=== PATIENT | female | born 1950 | race Caucasian/White ===

== ENCOUNTER 2017-01-17 22:56 | Inpatient (IN) ==
[2017-01-17] MEDS ORDERED: 0.9 % Sodium Chloride 1,000 ML IVC ONE (23:08)
--- NOTE | 2017-01-17 23:13 | Emergency Department Note ---
Disposition Clinical Impression: C. difficile diarrhea, Generalized abdominal cramping, Generalized weakness Disposition: Admitted As Inpatient Condition: Fair Time of Disposition: 01:08 Abdominal Pain HPI - General Chief Complaint: ED Abdominal Pain Stated Complaint: CP/ABD Pain Time Seen by Provider: 01/17/17 23:05 Source: patient, EMS Mode of arrival: EMS Limitations: no limitations Nursing Notes Reviewed: Yes Vital Signs Reviewed: Yes - History of Present Illness HPI Narrative: Patient is a 66-year-old female with past medical history of lung cancer, bone cancer, CVA. She receives chemo injections for lung cancer. She presents today due to C. difficile. Patient has been having diarrhea and generalized abdominal cramping for several days. She went to her primary care physician physician and had a stool sample sent. She was called today by Dr. Franco's office and was told that she had C. difficile and was called in a prescription medication. Patient states that she went to her pharmacy and that her insurance would not cover the medication, therefore she was not able to get it filled. She came to the ED today for admission because she cannot afford the medication and feels weak, has had multiple stools daily, lives by self and feels that she cannot continue performing activities of daily living until she is well again. Denies any shortness of breath, fevers, urinary symptoms. She does admit to some chest pain but states that she feels that it is abdominal pain radiating up into her chest. Pain Scale: 6 - Related Data Home Medications Medication Instructions Recorded Confirmed Multivitamin/Ferrous Sulfate 18 mg PO DAILY #0 09/21/15 01/18/17 [One-Daily Mbylz-Cei-Znoq Tab] Aspirin [Adult Low Dose Aspirin EC] 81 mg PO DAILY 10/10/15 01/18/17 Carvedilol [Coreg] 25 mg PO DAILY 10/10/15 01/18/17 Sertraline [Zoloft] 150 mg PO DAILY 10/10/15 01/18/17 Trazodone HCl [TraZODone] 100 mg PO HS 10/10/15 01/18/17 Ranitidine HCl [Zantac] 150 mg PO BID 01/19/16 01/18/17 Albuterol Sulfate [Albuterol 2 puff IH Q4H PRN 04/30/16 01/18/17 Inhaler] Ciprofloxacin 250 01/18/17 Previous Rx's Medication Instructions Recorded Albuterol Sulfate [Proventil Hfa] 6.7 gm IH Q4HR PRN 30 Days 05/01/16 Calcium Carbonate/Vitamin D3 2 tab PO BID #60 tablet 11/09/16 [Calcium 600 + Vit D Tablet] Incontinence Pad,Liner,Disp [Poise 1 each MC PRN PRN #100 each 11/09/16 Liners] Incontinence Pants, Reusable [Mesh 1 each MC PRN PRN #100 each 11/09/16 Pants] Allergies Allergy/AdvReac Type Severity Reaction Status Date / Time iodine Allergy Unknown Difficulty Verified 01/17/17 23:09 Breathing Iodinated Contrast Media - Allergy Difficulty Verified 01/17/17 23:09 Oral and Breathing [Iodinated Contrast Media - IV Dye] Opioids - Morphine Analogues AdvReac Unknown Itching Verified 01/17/17 23:09 watermelon Allergy Unknown Itching Uncoded 04/26/16 12:51 All systems ED: reviewed and negative except as stated. Constitutional: Denies: fever Cardiovascular: Reports: chest pain. Denies: palpitations Respiratory: Denies: cough, dyspnea, wheezes Gastrointestinal: Reports: abdominal pain, diarrhea. Denies: nausea, vomiting Genitourinary: Denies: urgency, dysuria, frequency, hematuria Musculoskeletal: Denies: back pain Integumentary: Denies: rash Neurological: Denies: headache, weakness, numbness, paresthesias Abdominal Pain PMH - Past Medical History Medical history: Reports: cancer, CVA, seizures, TIA Female Surgical History: Reports: orthopedic, other Psychiatric history: Reports: anxiety, depression - Social History Smoking status: Former smoker Alcohol use: Reports: none Drug use: Reports: none Physical Exam - General Limitations: no limitations General appearance: alert, in no apparent distress, other (frail, generalized weakness) - Head Head exam: atraumatic, normocephalic, normal inspection - Eye Eye exam: Present: normal appearance, PERRL, EOMI - ENT ENT exam: normal exam, normal oropharynx, mucous membranes moist - Neck Neck exam: Present: normal inspection, full ROM, trachea midline - Chest Chest inspection: Present: normal inspection, symmetric chest wall rise - Respiratory Respiratory exam: Present: normal lung sounds bilaterally - Cardiovascular Cardiovascular exam: Present: regular rate, normal rhythm, normal heart sounds - Abdominal Exam Abdominal exam: Present: soft, tenderness (generalized abdominal tenderness). Absent: distention, guarding, rebound, rigidity - Extremities Exam Extremities exam: Present: normal inspection, full ROM. Absent: tenderness, pedal edema - Neurological Exam Neurological exam: Present: alert, oriented X3, CN II-XII intact. Absent: motor sensory deficit - Psychiatric Psychiatric exam: Present: normal affect, normal mood - Skin Skin exam: Present: warm, dry, intact, normal color Course Course Narrative: Vitals within normal limits. Physical exam shows generalized abdominal tenderness. Patient is frail and generally weak. No focal neurologic deficits. We will obtain basic blood work, give the patient fluids. We will also obtain EKG however, I do feel that the patient's chest pain is radiating from her abdomen, as her "chest pain" is reproduced when I press in her epigastric region. We will likely admit due to social concerns and C. difficile. 00:33 EKG shows normal sinus rhythm with no acute ST changes. CBC shows leukocytosis of 12.2. Otherwise, BMP within normal limits. We will proceed with admission. Vital Signs Temperature 98.3 F 01/17/17 22:58 Pulse Rate 86 01/17/17 22:58 Respiratory Rate 18 01/17/17 22:58 Blood Pressure 120/63 01/17/17 22:58 O2 Sat by Pulse Oximetry 93 01/17/17 22:58 Temperature 99.8 F H 01/18/17 02:57 Pulse Rate 92 01/18/17 02:57 Respiratory Rate 17 01/18/17 02:57 Blood Pressure 136/80 01/18/17 02:57 O2 Sat by Pulse Oximetry 93 01/18/17 02:57 Oxygen Delivery Oxygen Delivery Room Air Abdominal Pain - [facility] Narrative Medical decision making narrative: Vitals within normal limits. Physical exam shows generalized abdominal tenderness. Patient is frail and generally weak. No focal neurologic deficits. We will obtain basic blood work, give the patient fluids. We will also obtain EKG however, I do feel that the patient's chest pain is radiating from her abdomen, as her "chest pain" is reproduced when I press in her epigastric region. We will likely admit due to social concerns and C. difficile. 00:33 EKG shows normal sinus rhythm with no acute ST changes. CBC shows leukocytosis of 12.2. Otherwise, BMP within normal limits. We will proceed with admission. - Medical Records Medical records reviewed: Yes I reviewed the patient's medical records. - Lab Data Lab results reviewed: Yes I reviewed the patient's lab results. Result diagrams: 01/17/17 23:22 01/17/17 23:22 Lab Results 01/17/17 01/17/17 01/18/17 Range/Units 23:22 23:22 03:50 WBC 12.2 H (4.3-11.1) K/mcL RBC 3.89 (3.82-4.97) M/mcL Hgb 11.2 L (11.5-15.4) g/dL Hct 34.1 L (35.3-44.9) % MCV 87.7 (83.0-100.0) fL MCH 28.8 (28.0-33.3) pg MCHC 32.8 (31.6-35.5) g/dL RDW 13.4 (11.5-14.5) % Plt Count 173 (140-400) K/mcL MPV 9.7 (9.4-12.4) fL Immature Gran % 0.7 (0-4) % Seg Neutrophils % 71.0 % Lymphocytes % 15.3 % Monocytes % 6.8 % Eosinophils % 5.9 % Basophils % 0.3 % Neutrophils # 8.7 (1.6-8.9) K/mcL Lymphocytes # 1.9 (0.6-4.6) K/mcL Monocytes # 0.8 (0.0-1.3) K/mcL Eosinophils # 0.7 H (0.0-0.6) K/mcL Basophils # 0.0 (0.0-0.2) K/mcL Sodium 143 (136-145) mEq/L Potassium 3.4 L (3.5-4.5) mEq/L Chloride 105 (98-109) mEq/L Carbon Dioxide 29 (19-29) mEq/L BUN 10 (7-20) mg/dL Creatinine 0.72 (0.57-1.11) mg/dL Est GFR ( Amer) > 60 (> 60) Est GFR (Non-Af Amer) > 60 (> 60) BUN/Creatinine Ratio 14 (6-26) Glucose 104 H (70-99) mg/dL Calculated Osmolality 295 (280-300) Calcium 8.7 (8.6-10.8) mg/dL Urine Color Yellow (Yellow) Urine Clarity Clear (Clear) Urine pH 6.5 (5.0-8.0) pH Units Ur Specific [place] 1.016 (1.010-1.025) Urine Protein Negative (Neg-Trace) mg/dL Urine Glucose (UA) Normal (Normal) mg/dL Urine Ketones Negative (Negative) mg/dL Urine Blood Negative (Negative) Urine Nitrite Negative (Negative) Urine Bilirubin Negative (Negative) Urine Urobilinogen Normal (Normal) mg/dL Ur Leukocyte Esterase Negative (Negative) Ur Culture Indicated? NO (NO) - EKG Data EKG attestation: Yes I reviewed and interpreted this EKG. EKG results narrative: 01/17/2017 at 23:09. Normal sinus rhythm. Rate 84. NH 162. QRS 98. QTC 438. Normal axis. No acute ST elevation or depression. No previous changes compared to previous EKG on 04/26/2016 S.B.ACastro - S.Russell Situation: Demographics, MOA Background: Presenting Complaint, Relevant PMH, Meds, & Allergies Assessment: Vital Signs, Course and respsone to treatment, Exam Concerns, Patient/Family Expectation, Pertinant Lab Results, Outstanding Labs Recommendation: Barrier(s) to disposition, Recommendation based on pending studies, treatments, or consults S.B.A.RAilyn Report Given to: Dr. Hayley Ordoñez Repor Time: 01:08 Attestation Statement - Attestation Attestation: Dr. Herrera note: Patient was seen in conjunction with resident Dr. Aubrey Ortiz; please see his chart for complete documentation. I spent [id number] time with the patient and agree with the patient's treatment and disposition. Chemistry results reviewed. Vital signs stable. Multiple bouts of diarrhea in the ER which required a rectal tube. Patient is unable to care for herself and will need to be admitted for intractable diarrhea
[2017-01-17 23:29] LABS: Basophils % 0.3 %; Eosinophils # 0.7 K/mcL (0.0-0.6); Eosinophils % 5.9 %; Hematocrit 34.1 % (35.3-44.9); Hemoglobin 11.2 g/dL (11.5-15.4); Immature Granulocytes % 0.7 % (0-4); Lymphocytes # 1.9 K/mcL (0.6-4.6); Lymphocytes % 15.3 %; Mean Corpuscular HGB Conc 32.8 g/dL (31.6-35.5); Mean Corpuscular Hemoglobin 28.8 pg (28.0-33.3); Mean Corpuscular Volume 87.7 fL (83.0-100.0); Mean Platelet Volume 9.7 fL (9.4-12.4); Monocytes # 0.8 K/mcL (0.0-1.3); Monocytes % 6.8 %; Neutrophils # 8.7 K/mcL (1.6-8.9); Platelet Count 173 K/mcL (140-400); Red Blood Count 3.89 M/mcL (3.82-4.97); Red Cell Distribution Width 13.4 % (11.5-14.5)
[2017-01-17 23:41] LABS: BUN/Creatinine Ratio 14 (6-26); Blood Urea Nitrogen 10 mg/dL (7-20); Calcium 8.7 mg/dL (8.6-10.8); Carbon Dioxide 29 mEq/L (19-29); Chloride 105 mEq/L (98-109); Glucose 104 mg/dL (70-99); Osmolality,Calculated 295 (280-300); Potassium 3.4 mEq/L (3.5-4.5); Sodium 143 mEq/L (136-145); eGFR For African Americans > 60 (> 60); eGFR For Non-African Americans > 60 (> 60)
[2017-01-18] MEDS ORDERED: Vancomycin Oral Soln 250 MG/2.5 ML UDC PO ONE (01:15)
--- NOTE | 2017-01-18 03:19 | Internal Med History&Physical ---
<Tre Curiel - Last Filed: 01/18/17 03:53> Date of Encounter: 01/18/17 Time of Encounter: 03:19 Assessment and Plan (1) C. difficile diarrhea Current visit: Yes Status: Acute -per patient "my (Brina) PCP states that I have cdiff" positive on stool sample -Complains of abdominal pain. Has taken morphine before without adverse reaction. Prescribed APPA-codeine 30-300 according to [facility]. This med is not on home list....no longer taking? Plan -Start oral vanc -isolation precautions. Stool sample taken to test for cdiff Regular diet (2) Carcinoma of breast metastatic to bone Current visit: Yes Status: Chronic -Dr. Cardoso cancer patient -Will call and notify Qualifiers: Laterality: left Qualified Code(s): C50.912 - Malignant neoplasm of unspecified site of left female breast; C79.51 - Secondary malignant neoplasm of bone (3) DVT prophylaxis Current visit: Yes Status: Acute lovenox sq Internal Medicine - H&P: HPI Chief complaint: abdominal pain/cdiff Admitted From: Emergency Dept Plans for Post Hospital Care: Home History of present illness: Ms. Lemons is a 66 year old female, PMH Primary breast cancer with mets to bone and lung, admitted for cdiff. Patient states that PCP, Dr. Quigley, called and told patient she was positive for cdiff. Patient unable to fill oral vanc rx at pharmacy due insurance not covering the cost so she presented to the ED to be treated. Currently, patient complains of abdominal pain, colicky for the last 2 weeks. Diarrhea anytime she drinks or eats. No blood or melena. She currently takes chemotherapy, has been for the last 6 years, and ciprofloxacin for UTI. Currently has dysuria. unsure when she started cipro. She has never had cdiff before. Admits to N. Denies F/V/C/new parasthesias. She is able to eat and drink. Past Med Surg Social Fam HX - Past Medical History Medical history: cancer, CVA, seizures, TIA Psychiatric history: anxiety, depression - Past Surgical History Surgical History: breast surgery, cancer surgery, other - Social History Smoking Status: Former smoker Smokeless Tobacco Status: No Alcohol use: none Drug use: none - Family History Mother Living Status: Internal Medicine - H&P: Meds Multivitamin/Ferrous Sulfate [One-Daily Uvlgu-Meb-Lhnb Tab] 18 mg PO DAILY #0 09/21/15 [History] Aspirin [Adult Low Dose Aspirin EC] 81 mg PO DAILY 10/10/15 [History] Carvedilol [Coreg] 25 mg PO DAILY 10/10/15 [History] Sertraline [Zoloft] 150 mg PO DAILY 10/10/15 [History] Trazodone HCl [TraZODone] 100 mg PO HS 10/10/15 [History] Ranitidine HCl [Zantac] 150 mg PO BID 01/19/16 [History] Albuterol Sulfate [Albuterol Inhaler] 2 puff IH Q4H PRN 04/30/16 [History] Albuterol Sulfate [Proventil Hfa] 6.7 gm IH Q4HR PRN 30 Days 05/01/16 [Rx] Calcium Carbonate/Vitamin D3 [Calcium 600 + Vit D Tablet] 2 tab PO BID #60 tablet 11/09/16 [Rx] Incontinence Pad,Liner,Disp [Poise Liners] 1 each MC PRN PRN #100 each 11/09/16 [Rx] Incontinence Pants, Reusable [Mesh Pants] 1 each MC PRN PRN #100 each 11/09/16 [ Rx] Ciprofloxacin 250 01/18/17 [History] Allergies iodine Allergy (Unknown, Verified 01/17/17 23:09) Difficulty Breathing Iodinated Contrast Media - Oral and [Iodinated Contrast Media - IV Dye] Allergy (Verified 01/17/17 23:09) Difficulty Breathing Opioids - Morphine Analogues Adverse Reaction (Unknown, Verified 01/17/17 23:09) Itching nausea watermelon Allergy (Unknown, Uncoded 04/26/16 12:51) Itching All Systems PM: A 10-system review of systems was performed and is negative for pertinent findings except as documented above in the HPI. - Constitutional Constitutional: no chills, no fever(s), no night sweats - Cardiovascular Cardiovascular ROS IM: no chest pain, no diaphoresis, no dyspnea, no lightheadedness, no palpitations, no syncope - Respiratory Respiratory: no cough, no dyspnea, no wheezing, no excessive phlegm production - Gastrointestinal Gastrointestinal: as per HPI - Constitutional Vitals: Temp Pulse Resp BP Pulse Ox 99.8 F H 92 17 136/80 93 01/18/17 02:57 01/18/17 02:57 01/18/17 02:57 01/18/17 02:57 01/18/17 02:57 General appearance: Present: A&O X 3 - Head Head exam: Present: atraumatic, normocephalic - Neck Neck exam general surgery: Present: supple, trachea midline. Absent: lymphadenopathy - Respiratory Respiratory exam: Present: CTAB. Absent: accessory muscle use, rales, rhonchi, wheezes - Cardiovascular Cardiovascular exam: Present: RRR, +S1, +S2. Absent: diastolic murmur, gallop, rubs, systolic murmur - GI/Abdominal GI/Abdominal exam: Present: hyperactive bowel sounds, soft, tenderness, no peritoneal signs. Absent: guarding, mass - Neurological Exam Neurological exam: Present: alert, oriented X3 - Psychiatric Psychiatric exam: Present: anxious Internal Med - H&P Results - Labs CBC & Chem 7: 01/17/17 23:22 01/17/17 23:22 <Chloe Hardy - Last Filed: 01/18/17 07:23> Date of Encounter: 01/18/17 Internal Medicine - H&P: HPI History of present illness: Ms. Lemons is a 66 year old female All Systems PM: A 10-system review of systems was performed and is negative for pertinent findings except as documented above in the HPI. - Constitutional Vitals: Temp Pulse Resp BP Pulse Ox 99.8 F H 92 17 136/80 93 01/18/17 02:57 01/18/17 02:57 01/18/17 02:57 01/18/17 02:57 01/18/17 02:57 Internal Med - H&P Results - Labs CBC & Chem 7: 01/17/17 23:22 01/17/17 23:22 - Attending Attestation I performed history and physical examination of the patient and discussed management with resident/Space Systems Operations Superintendent. I reviewed the resident/ Interns note and agree with the documented findings and plan of care. 66 Y/F with h/o breast cancer with mets to bone and lung, she is on long-term ciprofloxacin for UTIs. She reports 10 day history of multiple episodes of diarrhea and lower abdominal pain. She reports more than 20 diarrheal episodes / day. Denies melena or hematochezia. She apparently was tested positive for C. difficile, checked by her PCP, Patient was unable to fill oral vanc rx at pharmacy due insurance not covering the cost. O/E: Mild lower abdominal tenderness present. Rectal tube present Labs reviewed A/P: Clostridium difficile diarrhea: Possibly due to ciprofloxacin. Ciprofloxacin. Started on oral vancomycin and probiotics. If not improving symptomatically, consistent GI consultation.
[2017-01-18] MEDS ORDERED: Naloxone 0.4 MG/ML INJ IVP PRN (03:26)
[2017-01-18] MEDS ORDERED: Ondansetron 4 MG/2 ML VIAL IVP PRN (03:26)
[2017-01-18] MEDS ORDERED: Ondansetron ODT 4 MG TAB.RAPDIS SL PRN (03:26)
[2017-01-18] MEDS ORDERED: [UNRECOGNIZED DRUG - SUPPLY] MC PRN (03:33)
[2017-01-18] MEDS ORDERED: [UNRECOGNIZED DRUG - SUPPLY] MC PRN (03:33)
[2017-01-18] MEDS: traZODone 50 MG TABLET PO SCH ×2 (03:54→20:24)
[2017-01-18 04:04] LABS: Bilirubin,Urine Negative (Negative); Blood,Urine Negative (Negative); Clarity,Urine Clear (Clear); Color,Urine Yellow (Yellow); Glucose,Urine (UA) Normal (Normal); Ketones,Urine Negative (Negative); Leukocyte Esterase,Urine Negative (Negative); Nitrite,Urine Negative (Negative); PH,Urine 6.5 pH Units (5.0-8.0); Protein,Urine Negative (Neg-Trace); Specific Gravity,Urine 1.016 (1.010-1.025); Urobilinogen,Urine Normal (Normal)
[2017-01-18] MEDS: *HR* Morphine 2 MG/ML SYRINGE IVP PRN (04:10)
[2017-01-18] MEDS ORDERED: Potassium Chloride Elixir 20 MEQ/15 ML UDC PO SCH (09:00)
[2017-01-18] MEDS ORDERED: CALCIUM/VITAMIN D PO SCH (09:00)
[2017-01-18] MEDS: Lactobacillus 1 EACH CAP.SPRINK PO SCH ×2 (09:32→20:24)
[2017-01-18] MEDS: Aspirin Enteric Coated 81 MG Tablet PO SCH (09:33)
[2017-01-18] MEDS: Multivit/Ca/Min/Fe/FA 1 TAB TABLET PO SCH (09:33)
[2017-01-18] MEDS: Famotidine 20 MG TABLET PO SCH ×2 (09:33→18:32)
[2017-01-18] MEDS: Vancomycin Oral Soln 250 MG/2.5 ML UDC PO SCH ×4 (09:33→20:24)
[2017-01-18] MEDS: 0.9 % Sodium Chloride 1,000 ML IVC SCH (09:33)
[2017-01-18] MEDS: *HR* Enoxaparin 40 MG/0.4 ML SYRINGE SQ SCH (09:34)
[2017-01-18] MEDS: *HR* HYDROcodone/Acet 10/325 mg TABLET PO PRN (09:55)
--- NOTE | 2017-01-18 17:21 | Electrocardiograph Report ---
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
[2017-01-19] MEDS: 0.9 % Sodium Chloride 1,000 ML IVC SCH (00:37)
[2017-01-19] MEDS: *HR* Morphine 2 MG/ML SYRINGE IVP PRN ×3 (05:08→19:51)
[2017-01-19 05:27] LABS: Basophils % 0.4 %; Eosinophils # 0.5 K/mcL (0.0-0.6); Eosinophils % 5.9 %; Hematocrit 30.9 % (35.3-44.9); Hemoglobin 10.1 g/dL (11.5-15.4); Immature Granulocytes % 0.5 % (0-4); Lymphocytes # 1.8 K/mcL (0.6-4.6); Lymphocytes % 22.1 %; Mean Corpuscular HGB Conc 32.7 g/dL (31.6-35.5); Mean Corpuscular Hemoglobin 28.5 pg (28.0-33.3); Mean Corpuscular Volume 87.3 fL (83.0-100.0); Mean Platelet Volume 9.7 fL (9.4-12.4); Monocytes # 0.6 K/mcL (0.0-1.3); Monocytes % 7.2 %; Neutrophils # 5.3 K/mcL (1.6-8.9); Platelet Count 155 K/mcL (140-400); Red Blood Count 3.54 M/mcL (3.82-4.97); Red Cell Distribution Width 13.2 % (11.5-14.5); Segmented Neutrophils % 63.9 %
[2017-01-19 05:33] LABS: BUN/Creatinine Ratio 9 (6-26); Carbon Dioxide 27 mEq/L (19-29); Chloride 112 mEq/L (98-109); Glucose 94 mg/dL (70-99); Magnesium 1.6 mg/dL (1.6-2.6); Osmolality,Calculated 299 (280-300); Phosphorous 2.4 mg/dL (2.3-4.7); Potassium 2.9 mEq/L (3.5-4.5); Sodium 146 mEq/L (136-145); eGFR For African Americans > 60 (> 60); eGFR For Non-African Americans > 60 (> 60)
[2017-01-19 05:38] LABS: Blood Urea Nitrogen 5 mg/dL (7-20)
[2017-01-19] MEDS: *HR* Enoxaparin 40 MG/0.4 ML SYRINGE SQ SCH (05:57)
[2017-01-19] MEDS ORDERED: Potassium Chloride 40 MEQ, Lidocaine 1% 2 ML in D5% in Water 500 ML IVPB STA (07:56)
[2017-01-19] MEDS: Multivit/Ca/Min/Fe/FA 1 TAB TABLET PO SCH (09:18)
[2017-01-19] MEDS: Lactobacillus 1 EACH CAP.SPRINK PO SCH ×2 (09:18→19:59)
[2017-01-19] MEDS: Famotidine 20 MG TABLET PO SCH ×2 (09:19→15:44)
[2017-01-19] MEDS: Aspirin Enteric Coated 81 MG Tablet PO SCH (09:19)
[2017-01-19] MEDS: Vancomycin Oral Soln 250 MG/2.5 ML UDC PO SCH ×4 (09:20→20:00)
[2017-01-19] MEDS: *HR* HYDROcodone/Acet 10/325 mg TABLET PO PRN ×2 (09:27→16:45)
--- NOTE | 2017-01-19 14:32 | Internal Med Progress Note ---
Date of Encounter: 01/19/17 Time of Encounter: 13:00 - Assessment and plan (1) C. difficile diarrhea Current Visit: Yes Status: Acute Assessment and plan: For the past 2 weeks, she has severe diarrhea and lower abdominal pain. Her primary care physician checked her for C diff and it came back positive so she was prescribed oral vancomycin as outpatient. Unfortunately, she was unable to afford this medication and she came to our emergency department. Patient met criteria for severe disease given age, fever and immunosuppression due to metastatic breast cancer receiving Faslodex therapy. She has received oral vancomycin 250 mg qid for the past 36 hours with no improvement of her diarrhea. She reports at least 8 loose bm this morning. Will increase vancomycin to 500 mg qid. close monitoring. electrolyte replacement. close monitoring. (2) Hypokalemia Current Visit: Yes Status: Acute Assessment and plan: replete (3) Metastatic breast carcinoma Current Visit: No Status: Chronic Assessment and plan: Metastatic breast carcinoma to bones and lungs. Currently she is being treated with Faslodex. Outpatient follow-up. 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 Brain MRI 03/24/15 to evaluate ataxia and recurrent falls showed no evidence of intracranial metastases. (5) Hypomagnesemia Current Visit: Yes Status: Acute Assessment and plan: replete - Subjective Interval history: Patient reports over 8 bowel movements this morning, all loose. She feels her bowels are very active. - Constitutional Vitals: Temp Pulse Resp BP Pulse Ox 98.5 F 69 19 101/65 94 01/19/17 11:12 01/19/17 11:12 01/19/17 11:12 01/19/17 11:12 01/19/17 11:12 General appearance: Present: cooperative, A&O X 3, pleasant, no acute distress, answers questions appropriately - Respiratory Respiratory exam: Present: CTAB - Cardiovascular Cardiovascular exam: Present: RRR - GI/Abdominal GI/Abdominal exam: Present: hyperactive bowel sounds, soft. Absent: distended, tenderness - Extremities Exam Extremities exam: Absent: pedal edema - Back Exam Back exam: Absent: CVA tenderness (L), CVA tenderness (R) - Neurological Exam Neurological exam: Present: alert, oriented X3, no focal deficits, strengths equal and symetr throughout. Absent: facial droop, speech deficit Internal Medicine: Result - Labs CBC & Chem 7: 01/19/17 05:08 01/19/17 05:08 Labs: Short CBC 01/19/17 Range/Units 05:08 WBC 8.2 (4.3-11.1) K/mcL Hgb 10.1 L (11.5-15.4) g/dL Hct 30.9 L (35.3-44.9) % Plt Count 155 (140-400) K/mcL Neutrophils # 5.3 (1.6-8.9) K/mcL BMP 01/19/17 05:08 Sodium 146 H Potassium 2.9 L Chloride 112 H Carbon Dioxide 27 BUN 5 L Creatinine 0.58 Glucose 94 Calcium 8.0 L Consult Discharge Plan - Plan Referrals: Mohini Franco, [employer] [Primary Care Provider] -
[2017-01-19] MEDS: traZODone 50 MG TABLET PO SCH (20:00)
[2017-01-20] MEDS: *HR* Morphine 2 MG/ML SYRINGE IVP PRN ×4 (03:13→22:22)
[2017-01-20 04:20] LABS: Basophils % 0.5 %; Eosinophils # 0.6 K/mcL (0.0-0.6); Eosinophils % 8.9 %; Hematocrit 33.6 % (35.3-44.9); Hemoglobin 10.6 g/dL (11.5-15.4); Immature Granulocytes % 0.8 % (0-4); Lymphocytes # 2.1 K/mcL (0.6-4.6); Lymphocytes % 31.8 %; Mean Corpuscular HGB Conc 31.5 g/dL (31.6-35.5); Mean Corpuscular Hemoglobin 28.1 pg (28.0-33.3); Mean Corpuscular Volume 89.1 fL (83.0-100.0); Mean Platelet Volume 10.2 fL (9.4-12.4); Monocytes # 0.5 K/mcL (0.0-1.3); Monocytes % 8.1 %; Neutrophils # 3.3 K/mcL (1.6-8.9); Platelet Count 184 K/mcL (140-400); Red Blood Count 3.77 M/mcL (3.82-4.97); Red Cell Distribution Width 13.7 % (11.5-14.5); Segmented Neutrophils % 49.9 %
[2017-01-20 04:31] LABS: Albumin 2.6 g/dL (3.5-5.0); Albumin/Globulin Ratio 0.8 (1.1-2.2); BUN/Creatinine Ratio 7 (6-26); Bilirubin,Direct 0.1 mg/dL (0.0-0.5); Bilirubin,Indirect 0.1 mg/dL (0.0-1.2); Bilirubin,Total 0.2 mg/dL (0.2-1.2); Calcium 8.2 mg/dL (8.6-10.8); Carbon Dioxide 25 mEq/L (19-29); Chloride 111 mEq/L (98-109); Globulin 3.3 g/dL (2.4-3.5); Glucose 87 mg/dL (70-99); Magnesium 1.7 mg/dL (1.6-2.6); Osmolality,Calculated 293 (280-300); Phosphorous 2.7 mg/dL (2.3-4.7); Potassium 3.6 mEq/L (3.5-4.5); Sodium 143 mEq/L (136-145); Total Protein 5.9 g/dL (6.0-8.3); eGFR For African Americans > 60 (> 60); eGFR For Non-African Americans > 60 (> 60)
[2017-01-20 04:32] LABS: Blood Urea Nitrogen 5 mg/dL (7-20)
[2017-01-20] MEDS: *HR* Enoxaparin 40 MG/0.4 ML SYRINGE SQ SCH (06:38)
[2017-01-20] MEDS: Famotidine 20 MG TABLET PO SCH ×2 (06:38→16:40)
[2017-01-20] MEDS: Vancomycin Oral Soln 250 MG/2.5 ML UDC PO SCH ×4 (08:02→22:21)
[2017-01-20] MEDS: Lactobacillus 1 EACH CAP.SPRINK PO SCH ×2 (08:03→22:21)
[2017-01-20] MEDS: Aspirin Enteric Coated 81 MG Tablet PO SCH (08:04)
[2017-01-20] MEDS: Multivit/Ca/Min/Fe/FA 1 TAB TABLET PO SCH (08:04)
[2017-01-20] MEDS: *HR* HYDROcodone/Acet 10/325 mg TABLET PO PRN ×2 (08:13→16:40)
--- NOTE | 2017-01-20 16:42 | Internal Med Progress Note ---
Date of Encounter: 01/20/17 Time of Encounter: 14:00 - Assessment and plan (1) C. difficile diarrhea Current Visit: Yes Status: Acute Assessment and plan: For the past 2 weeks, she has severe diarrhea and lower abdominal pain. Her primary care physician checked her for C diff and it came back positive so she was prescribed oral vancomycin as outpatient. Unfortunately, she was unable to afford this medication and she came to our emergency department. Patient met criteria for severe disease given age, fever and immunosuppression due to metastatic breast cancer receiving Faslodex therapy. 01/19 oral vancomycin increased to 500 mg qid due to high frequency of loose stools 01/20 slowly improving. stools are becoming formed but still 7-8 per day. close monitoring. electrolyte replacement. (2) Hypokalemia Current Visit: Yes Status: Acute Assessment and plan: corrected (3) Metastatic breast carcinoma Current Visit: No Status: Chronic Assessment and plan: Metastatic breast carcinoma to bones and lungs. Currently she is being treated with Faslodex. Outpatient follow-up. 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 Brain MRI 03/24/15 to evaluate ataxia and recurrent falls showed no evidence of intracranial metastases. (5) Hypomagnesemia Current Visit: Yes Status: Resolved Assessment and plan: corrected - Subjective Interval history: Patient reports bowel movements are formed. she is eating well. no nausea. no vomiting. - Constitutional Vitals: Temp Pulse Resp BP Pulse Ox 97.9 F 57 18 107/71 99 01/20/17 11:04 01/20/17 11:04 01/20/17 11:04 01/20/17 11:04 01/20/17 11:04 General appearance: Present: cooperative, A&O X 3, pleasant, no acute distress, answers questions appropriately - Respiratory Respiratory exam: Present: CTAB - Cardiovascular Cardiovascular exam: Present: RRR - GI/Abdominal GI/Abdominal exam: Present: hyperactive bowel sounds, soft. Absent: distended, tenderness - Extremities Exam Extremities exam: Absent: pedal edema - Back Exam Back exam: Absent: CVA tenderness (L), CVA tenderness (R) - Neurological Exam Neurological exam: Present: alert, oriented X3, no focal deficits, strengths equal and symetr throughout. Absent: facial droop, speech deficit Internal Medicine: Result - Labs CBC & Chem 7: 04/23/17 03:25 01/20/17 03:25 Labs: Short CBC 01/20/17 Range/Units 03:25 WBC 6.5 (4.3-11.1) K/mcL Hgb 10.6 L (11.5-15.4) g/dL Hct 33.6 L (35.3-44.9) % Plt Count 184 (140-400) K/mcL Neutrophils # 3.3 (1.6-8.9) K/mcL BMP 01/20/17 03:25 Sodium 143 Potassium 3.6 Chloride 111 H Carbon Dioxide 25 BUN 5 L Creatinine 0.69 Glucose 87 Calcium 8.2 L Liver Function 01/20/17 Range/Units 03:25 Total Bilirubin 0.2 (0.2-1.2) mg/dL Direct Bilirubin 0.1 (0.0-0.5) mg/dL AST 14 (5-34) Units/L ALT 10 (0-55) Units/L Alkaline Phosphatase 59 (38-126) Units/L Albumin 2.6 L (3.5-5.0) g/dL Consult Discharge Plan - Plan Referrals: Mohini Franco, [employer] [Primary Care Provider] -
[2017-01-20] MEDS: traZODone 50 MG TABLET PO SCH (22:20)
[2017-01-21] MEDS: *HR* Morphine 2 MG/ML SYRINGE IVP PRN ×3 (03:36→22:25)
[2017-01-21 05:34] LABS: BUN/Creatinine Ratio 9 (6-26); Basophils % 0.5 %; Blood Urea Nitrogen 6 mg/dL (7-20); Calcium 7.9 mg/dL (8.6-10.8); Carbon Dioxide 28 mEq/L (19-29); Chloride 110 mEq/L (98-109); Eosinophils # 0.5 K/mcL (0.0-0.6); Eosinophils % 7.6 %; Glucose 84 mg/dL (70-99); Hematocrit 30.5 % (35.3-44.9); Hemoglobin 9.8 g/dL (11.5-15.4); Immature Granulocytes % 0.6 % (0-4); Lymphocytes # 1.8 K/mcL (0.6-4.6); Lymphocytes % 29.8 %; Magnesium 1.4 mg/dL (1.6-2.6); Mean Corpuscular HGB Conc 32.1 g/dL (31.6-35.5); Mean Corpuscular Hemoglobin 29.1 pg (28.0-33.3); Mean Corpuscular Volume 90.5 fL (83.0-100.0); Mean Platelet Volume 10.7 fL (9.4-12.4); Monocytes # 0.5 K/mcL (0.0-1.3); Monocytes % 8.3 %; Neutrophils # 3.3 K/mcL (1.6-8.9); Osmolality,Calculated 293 (280-300); Platelet Count 163 K/mcL (140-400); Potassium 3.7 mEq/L (3.5-4.5); Red Blood Count 3.37 M/mcL (3.82-4.97); Red Cell Distribution Width 13.5 % (11.5-14.5); Segmented Neutrophils % 53.2 %; Sodium 143 mEq/L (136-145); eGFR For African Americans > 60 (> 60); eGFR For Non-African Americans > 60 (> 60)
[2017-01-21] MEDS: *HR* Enoxaparin 40 MG/0.4 ML SYRINGE SQ SCH (06:20)
[2017-01-21] MEDS: *HR* HYDROcodone/Acet 10/325 mg TABLET PO PRN ×2 (06:20→13:51)
[2017-01-21] MEDS: Famotidine 20 MG TABLET PO SCH ×2 (06:20→16:51)
[2017-01-21] MEDS ORDERED: Magnesium Sulfate 2 GM in D5% in Water 100 ML IVPB ONE (08:07)
[2017-01-21] MEDS: Multivit/Ca/Min/Fe/FA 1 TAB TABLET PO SCH (08:55)
[2017-01-21] MEDS: Aspirin Enteric Coated 81 MG Tablet PO SCH (08:55)
[2017-01-21] MEDS: Lactobacillus 1 EACH CAP.SPRINK PO SCH ×2 (08:56→22:24)
[2017-01-21] MEDS: Vancomycin Oral Soln 250 MG/2.5 ML UDC PO SCH ×4 (08:56→22:24)
[2017-01-21] MEDS ORDERED: Acetaminophen 325 MG TABLET PO PRN (12:14)
--- NOTE | 2017-01-21 12:33 | Internal Med Progress Note ---
<Sebas Laguna - Last Filed: 01/21/17 17:27> Date of Encounter: 01/21/17 Time of Encounter: 09:10 - Assessment and plan (1) Clostridium difficile infection Current Visit: Yes Status: Acute Assessment and plan: improving clinically slowly. However still having multiple bowel movements. Will need at least a 14 day course of PO vancomycin. Jose De Jesus add cholystiramine as a bulking agent. having some abdominal pain this AM. Will get KUB. (2) Breast cancer, stage 4 Current Visit: Yes Status: Acute Assessment and plan: currently on palliative chemotherapy with faslodex. She will need t folow up [facility] oncology as outpatient. Qualifiers: Qualified Code(s): C50.919 - Malignant neoplasm of unspecified site of unspecified female breast (3) Cancer associated pain Current Visit: Yes Status: Acute Assessment and plan: I will write for scheduled Percocet. Will continue PRN Morphine. If still uncontrolled will consider consulting palliative for their input. he has tried fentanyl in the past and did not like the patches so may need another option for long acting pain control. (4) Bone metastases Current Visit: Yes Status: Acute (5) Anemia Current Visit: Yes Status: Acute Assessment and plan: mild New since admission. No signs of bleeding at this time. Likely a result of IV fluids and repeated lab testing/ blood draws. May also be a sign of progressive bone mets. Although I think this is less likely as WBC and platelets are normal. If continues to trend down will need further workup. Qualifiers: Qualified Code(s): D64.9 - Anemia, unspecified (6) DVT prophylaxis Current Visit: Yes Status: Acute Assessment and plan: SQ lovenox. - Subjective Interval history: No major events overnight. Patient continues to have diarrhea. She states that she had approximately 10 loose stools yesterday. She states that it is improving some. She feels that her stools are more formed. she admits to some mild diffuse abdominal pain. she also states that her pain is not well controlled. She has chronic pain from bone mets. Currently 6/10 but will peak at a 10/10. no further complaints or concerns at this time. - Constitutional Vitals: Temp Pulse Resp BP Pulse Ox 98.0 F 63 16 113/64 95 01/21/17 10:53 01/21/17 10:53 01/21/17 10:53 01/21/17 10:53 01/21/17 10:53 General appearance: Present: cooperative, A&O X 3, pleasant, no acute distress, answers questions appropriately - Head Head exam: Present: atraumatic, normal inspection, normocephalic - Eye Eye exam: Present: PERRL, conjuntiva pink, sclera anicteric Pupils: Present: PERRL - Neck Neck exam general surgery: Present: supple, trachea midline. Absent: lymphadenopathy - Respiratory Respiratory exam: Present: CTAB. Absent: accessory muscle use, rales, rhonchi, wheezes - Cardiovascular Cardiovascular exam: Present: RRR, +S1, +S2. Absent: diastolic murmur, gallop, rubs, systolic murmur - GI/Abdominal GI/Abdominal exam: Present: normal bowel sounds, soft, tenderness (mild diffuse) , no peritoneal signs. Absent: distended - Extremities Exam Extremities exam: Present: warm, radial pulses palpable and symetrical. Absent : calf tenderness, cyanotic, pedal edema - Skin Skin exam: Present: dry, intact Internal Medicine: Result - Labs CBC & Chem 7: 01/21/17 03:45 01/21/17 03:45 Labs: Short CBC 01/21/17 Range/Units 03:45 WBC 6.2 (4.3-11.1) K/mcL Hgb 9.8 L (11.5-15.4) g/dL Hct 30.5 L (35.3-44.9) % Plt Count 163 (140-400) K/mcL Neutrophils # 3.3 (1.6-8.9) K/mcL BMP 01/21/17 03:45 Sodium 143 Potassium 3.7 Chloride 110 H Carbon Dioxide 28 BUN 6 L Creatinine 0.64 Glucose 84 Calcium 7.9 L Consult Discharge Plan - Plan Referrals: Mohini Franco CNP [Primary Care Provider] - <Catherine Cagle - Last Filed: 01/21/17 17:54> Date of Encounter: 01/21/17 - Assessment and plan (1) C. difficile diarrhea Current Visit: Yes Status: Acute (2) Hypokalemia Current Visit: Yes Status: Acute (3) Metastatic breast carcinoma Current Visit: No Status: Chronic (4) Mild cognitive impairment Current Visit: No Status: Chronic (5) Hypomagnesemia Current Visit: Yes Status: Resolved - Constitutional Vitals: Temp Pulse Resp BP Pulse Ox 97.5 F L 68 18 143/80 98 01/21/17 17:45 01/21/17 17:45 01/21/17 17:45 01/21/17 17:45 01/21/17 17:45 Internal Medicine: Result - Labs CBC & Chem 7: 01/21/17 03:45 01/21/17 03:45 Labs: Short CBC 01/21/17 Range/Units 03:45 WBC 6.2 (4.3-11.1) K/mcL Hgb 9.8 L (11.5-15.4) g/dL Hct 30.5 L (35.3-44.9) % Plt Count 163 (140-400) K/mcL Neutrophils # 3.3 (1.6-8.9) K/mcL BMP 01/21/17 03:45 Sodium 143 Potassium 3.7 Chloride 110 H Carbon Dioxide 28 BUN 6 L Creatinine 0.64 Glucose 84 Calcium 7.9 L - Impressions Impressions KUB X-Ray 01/21/17 12:15 IMPRESSION: Nonobstructed bowel-gas pattern. D/ / 01/21/2017 13:12:54 Ely Aldana MD / [facility] Interpreting Provider: Ely Aldana MD - Attending Attestation I examined this patient and reviewed laboratory, imaging and all diagnostic data. My medical decision-making was reviewed with Dr Laguna - Resident Physician. I agree with the documented findings, disposition and treatment plan as described above
[2017-01-21] MEDS: Cholestyramine 4 GM POWD.PACK PO SCH ×2 (13:51→16:51)
[2017-01-21] MEDS: *HR* OxyCODONE/APAP 5/325 TABLET PO PRN (17:44)
[2017-01-21] MEDS: traZODone 50 MG TABLET PO SCH (22:23)
[2017-01-22 05:31] LABS: Basophils % 0.8 %; Eosinophils # 0.5 K/mcL (0.0-0.6); Eosinophils % 8.9 %; Hematocrit 28.7 % (35.3-44.9); Hemoglobin 9.3 g/dL (11.5-15.4); Immature Granulocytes % 0.6 % (0-4); Lymphocytes # 1.6 K/mcL (0.6-4.6); Lymphocytes % 30.8 %; Mean Corpuscular HGB Conc 32.4 g/dL (31.6-35.5); Mean Corpuscular Hemoglobin 28.9 pg (28.0-33.3); Mean Corpuscular Volume 89.1 fL (83.0-100.0); Mean Platelet Volume 9.8 fL (9.4-12.4); Monocytes # 0.5 K/mcL (0.0-1.3); Monocytes % 8.5 %; Neutrophils # 2.7 K/mcL (1.6-8.9); Platelet Count 154 K/mcL (140-400); Red Blood Count 3.22 M/mcL (3.82-4.97); Red Cell Distribution Width 13.4 % (11.5-14.5); Segmented Neutrophils % 50.4 %
[2017-01-22 05:53] LABS: BUN/Creatinine Ratio 8 (6-26); Calcium 7.8 mg/dL (8.6-10.8); Carbon Dioxide 30 mEq/L (19-29); Chloride 110 mEq/L (98-109); Glucose 87 mg/dL (70-99); Magnesium 1.9 mg/dL (1.6-2.6); Osmolality,Calculated 295 (280-300); Potassium 3.6 mEq/L (3.5-4.5); Sodium 144 mEq/L (136-145); eGFR For African Americans > 60 (> 60); eGFR For Non-African Americans > 60 (> 60)
[2017-01-22 05:59] LABS: Blood Urea Nitrogen 5 mg/dL (7-20)
[2017-01-22] MEDS: *HR* Morphine 2 MG/ML SYRINGE IVP PRN (06:41)
[2017-01-22] MEDS: *HR* Enoxaparin 40 MG/0.4 ML SYRINGE SQ SCH (06:42)
[2017-01-22] MEDS: Cholestyramine 4 GM POWD.PACK PO SCH ×3 (06:43→16:02)
[2017-01-22] MEDS: Famotidine 20 MG TABLET PO SCH ×2 (06:43→16:02)
[2017-01-22] MEDS: Multivit/Ca/Min/Fe/FA 1 TAB TABLET PO SCH (07:36)
[2017-01-22] MEDS: Vancomycin Oral Soln 250 MG/2.5 ML UDC PO SCH ×4 (07:37→20:27)
[2017-01-22] MEDS: Aspirin Enteric Coated 81 MG Tablet PO SCH (07:37)
[2017-01-22] MEDS: Lactobacillus 1 EACH CAP.SPRINK PO SCH ×2 (07:37→20:25)
[2017-01-22] MEDS: metroNIDAZOLE 500 MG TABLET PO SCH ×2 (12:12→20:26)
--- NOTE | 2017-01-22 13:49 | Internal Med Progress Note ---
<Sebas Laguna - Last Filed: 01/22/17 13:34> Date of Encounter: 01/22/17 Time of Encounter: 09:30 - Assessment and plan (1) Clostridium difficile infection Current Visit: Yes Status: Acute Assessment and plan: improving clinically slowly. However still having multiple bowel movements. despite addding cholestyramine as a bulking agent. We will add IV flagyl Duration of antibiotics will be determined by clinical course. She will need at least a 14 day course of antibiotics and perhaps longer given her slow improvement. (2) Breast cancer, stage 4 Current Visit: Yes Status: Acute Assessment and plan: currently on palliative chemotherapy with faslodex. She will need to follow up with oncology as outpatient. Qualifiers: Qualified Code(s): C50.919 - Malignant neoplasm of unspecified site of unspecified female breast (3) Cancer associated pain Current Visit: Yes Status: Acute Assessment and plan: still uncontrolled. We will add Oxycontin ER and PRN Percocet for breakthrough. pain. continue to monitor for adverse effects. (4) Bone metastases Current Visit: Yes Status: Acute (5) Anemia Current Visit: Yes Status: Acute Assessment and plan: mild New since admission. No signs of bleeding at this time. Likely a result of IV fluids and repeated lab testing/ blood draws. May also be a sign of progressive bone mets. Although I think this is less likely as WBC and platelets are normal. If continues to trend down will need further workup. stable Qualifiers: Qualified Code(s): D64.9 - Anemia, unspecified (6) DVT prophylaxis Current Visit: Yes Status: Acute Assessment and plan: SQ lovenox. - Subjective Interval history: No Major events overnight. Patient states that she continues to have multiple loose bowel movements. She states that she had 8 yesterday. She denies any abdominal pain this AM. she continues to have bony pain and states that she can not get comfortable. this morning her pain is a 7/10 and is the most severe in her thoracic spine area. She denies any weakness or numbness of the lower extremities. - Constitutional Vitals: Temp Pulse Resp BP Pulse Ox 98.7 F 73 16 139/78 93 01/22/17 07:30 01/22/17 07:30 01/22/17 07:30 01/22/17 07:30 01/22/17 07:30 General appearance: Present: cooperative, A&O X 3, pleasant, no acute distress, answers questions appropriately - Head Head exam: Present: atraumatic, normal inspection, normocephalic - Eye Eye exam: Present: PERRL, conjuntiva pink, sclera anicteric Pupils: Present: PERRL - Neck Neck exam general surgery: Present: supple, trachea midline. Absent: lymphadenopathy - Respiratory Respiratory exam: Present: wheezes (mild expiratory. ). Absent: accessory muscle use, rales, rhonchi - Cardiovascular Cardiovascular exam: Present: RRR, +S1, +S2. Absent: diastolic murmur, gallop, rubs, systolic murmur - GI/Abdominal GI/Abdominal exam: Present: normal bowel sounds, soft, no peritoneal signs. Absent: distended, tenderness Additional comments: obese - Extremities Exam Extremities exam: Present: warm, radial pulses palpable and symetrical. Absent : calf tenderness, cyanotic, pedal edema - Skin Skin exam: Present: dry, intact Internal Medicine: Result - Labs CBC & Chem 7: 01/22/17 05:22 01/22/17 05:22 Labs: Short CBC 01/22/17 Range/Units 05:22 WBC 5.3 (4.3-11.1) K/mcL Hgb 9.3 L (11.5-15.4) g/dL Hct 28.7 L (35.3-44.9) % Plt Count 154 (140-400) K/mcL Neutrophils # 2.7 (1.6-8.9) K/mcL BMP 01/22/17 05:22 Sodium 144 Potassium 3.6 Chloride 110 H Carbon Dioxide 30 H BUN 5 L Creatinine 0.59 Glucose 87 Calcium 7.8 L Consult Discharge Plan - Plan Referrals: Mohini Franco [employer] [Primary Care Provider] - <Brant Bowser - Last Filed: 01/22/17 17:35> Date of Encounter: 01/22/17 - Constitutional Vitals: Temp Pulse Resp BP Pulse Ox 98.5 F 68 16 144/81 93 01/22/17 11:50 01/22/17 11:50 01/22/17 11:50 01/22/17 11:50 01/22/17 11:50 Internal Medicine: Result - Labs CBC & Chem 7: 01/22/17 05:22 01/22/17 05:22 Labs: Short CBC 01/22/17 Range/Units 05:22 WBC 5.3 (4.3-11.1) K/mcL Hgb 9.3 L (11.5-15.4) g/dL Hct 28.7 L (35.3-44.9) % Plt Count 154 (140-400) K/mcL Neutrophils # 2.7 (1.6-8.9) K/mcL BMP 01/22/17 05:22 Sodium 144 Potassium 3.6 Chloride 110 H Carbon Dioxide 30 H BUN 5 L Creatinine 0.59 Glucose 87 Calcium 7.8 L - Attending Attestation I examined this patient and my medical decision-making was reviewed with the Resident Physician, Dr Ceja. I agree with the documented findings, disposition and treatment plan as described except to the extent set forth below. She reports multiple episodes of diarrhea this morning. On exam she is in no acute distress heart is regular S1-S2 lungs are clear. Abdomen is soft nontender nondistended positive bowel sounds. Continue with oral vancomycin 500 mg 4 times a day. Oral Flagyl. Monitor clinically. If no improvement over the next 24 hours we will switch to Dificid.
[2017-01-22] MEDS: *HR* OxyCODONE/APAP 5/325 TABLET PO PRN (16:01)
[2017-01-22] MEDS: *HR* OxyCODONE ER (12 HR) 10 MG TABLET PO SCH (17:41)
[2017-01-22] MEDS: traZODone 50 MG TABLET PO SCH (20:25)
[2017-01-23 04:06] LABS: Basophils # 0.1 K/mcL (0.0-0.2); Basophils % 0.9 %; Eosinophils # 0.6 K/mcL (0.0-0.6); Eosinophils % 8.6 %; Hematocrit 30.9 % (35.3-44.9); Hemoglobin 10.1 g/dL (11.5-15.4); Immature Granulocytes % 0.2 % (0-4); Lymphocytes # 1.7 K/mcL (0.6-4.6); Lymphocytes % 26.4 %; Mean Corpuscular HGB Conc 32.7 g/dL (31.6-35.5); Mean Corpuscular Hemoglobin 28.9 pg (28.0-33.3); Mean Corpuscular Volume 88.5 fL (83.0-100.0); Mean Platelet Volume 9.9 fL (9.4-12.4); Monocytes # 0.5 K/mcL (0.0-1.3); Monocytes % 7.8 %; Neutrophils # 3.6 K/mcL (1.6-8.9); Platelet Count 177 K/mcL (140-400); Red Blood Count 3.49 M/mcL (3.82-4.97); Red Cell Distribution Width 13.3 % (11.5-14.5); Segmented Neutrophils % 56.1 %
[2017-01-23 04:14] LABS: BUN/Creatinine Ratio 14 (6-26); Blood Urea Nitrogen 8 mg/dL (7-20); Carbon Dioxide 30 mEq/L (19-29); Chloride 108 mEq/L (98-109); Glucose 90 mg/dL (70-99); Magnesium 1.5 mg/dL (1.6-2.6); Osmolality,Calculated 294 (280-300); Potassium 3.3 mEq/L (3.5-4.5); Sodium 143 mEq/L (136-145); eGFR For African Americans > 60 (> 60); eGFR For Non-African Americans > 60 (> 60)
[2017-01-23] MEDS: *HR* OxyCODONE ER (12 HR) 10 MG TABLET PO SCH ×2 (06:30→16:51)
[2017-01-23] MEDS: *HR* Enoxaparin 40 MG/0.4 ML SYRINGE SQ SCH (06:30)
[2017-01-23] MEDS: Multivit/Ca/Min/Fe/FA 1 TAB TABLET PO SCH (08:07)
[2017-01-23] MEDS: Cholestyramine 4 GM POWD.PACK PO SCH ×3 (08:07→16:51)
[2017-01-23] MEDS: Aspirin Enteric Coated 81 MG Tablet PO SCH (08:07)
[2017-01-23] MEDS: Vancomycin Oral Soln 250 MG/2.5 ML UDC PO SCH ×4 (08:07→20:47)
[2017-01-23] MEDS: Famotidine 20 MG TABLET PO SCH ×2 (08:07→16:51)
[2017-01-23] MEDS: Lactobacillus 1 EACH CAP.SPRINK PO SCH ×2 (08:07→20:47)
[2017-01-23] MEDS: metroNIDAZOLE 500 MG TABLET PO SCH ×3 (08:08→20:47)
[2017-01-23] MEDS ORDERED: Potassium Chloride Elixir 20 MEQ/15 ML UDC PO ONE (08:58)
[2017-01-23] MEDS ORDERED: Magnesium Sulfate 2 GM in D5% in Water 100 ML IVPB ONE (08:59)
--- NOTE | 2017-01-23 15:19 | Internal Med Progress Note ---
<Sebas Laguna - Last Filed: 01/23/17 15:16> Date of Encounter: 01/23/17 Time of Encounter: 10:25 - Assessment and plan (1) Clostridium difficile infection Current Visit: Yes Status: Acute Assessment and plan: improving clinically slowly. However still having multiple bowel movements. despite addding cholestyramine as a bulking agent. We will add IV flagyl Duration of antibiotics will be determined by clinical course. She will need at least a 14 day course of antibiotics and perhaps longer given her slow improvement. 01/23/17 Improving slowly buit not as quickly as suspected. continue PO vancomycin and Flagyl. Will get a GI panel to r/o other pathogens. Continue IV fluids. (2) Breast cancer, stage 4 Current Visit: Yes Status: Acute Assessment and plan: currently on palliative chemotherapy with faslodex. She will need to follow up with oncology as outpatient. Qualifiers: Qualified Code(s): C50.919 - Malignant neoplasm of unspecified site of unspecified female breast (3) Cancer associated pain Current Visit: Yes Status: Acute Assessment and plan: better controlled today. We will continue Oxycontin ER and PRN Percocet for breakthrough. pain. continue to monitor for adverse effects. (4) Bone metastases Current Visit: Yes Status: Acute (5) Anemia Current Visit: Yes Status: Acute Assessment and plan: mild New since admission. No signs of bleeding at this time. Likely a result of IV fluids and repeated lab testing/ blood draws. May also be a sign of progressive bone mets. Although I think this is less likely as WBC and platelets are normal. If continues to trend down will need further workup. stable 01/23/17 stable /trending up. Qualifiers: Qualified Code(s): D64.9 - Anemia, unspecified (6) DVT prophylaxis Current Visit: Yes Status: Acute Assessment and plan: SQ lovenox. - Subjective Interval history: No major events overnight. the paient states that she continues to have multiple loose bowel movements. She states that the volume seems to be ess and they are more formed than they were but are still quite loose. She denies abdominal pain. She states that her bone pain has improved and is now tolerable. She has no further complaints or concerns a this time. - Constitutional Vitals: Temp Pulse Resp BP Pulse Ox 98.4 F 63 14 136/82 96 01/23/17 14:11 01/23/17 14:11 01/23/17 14:11 01/23/17 14:11 01/23/17 14:11 General appearance: Present: cooperative, A&O X 3, pleasant, no acute distress, answers questions appropriately - Head Head exam: Present: atraumatic, normocephalic - Eye Eye exam: Present: PERRL, conjuntiva pink, sclera anicteric Pupils: Present: PERRL - Neck Neck exam general surgery: Present: supple, trachea midline. Absent: lymphadenopathy - Respiratory Respiratory exam: Present: CTAB. Absent: accessory muscle use, rales, rhonchi, wheezes - Cardiovascular Cardiovascular exam: Present: RRR, +S1, +S2. Absent: diastolic murmur, gallop, rubs, systolic murmur - GI/Abdominal GI/Abdominal exam: Present: normal bowel sounds, soft, no peritoneal signs. Absent: distended, tenderness - Extremities Exam Extremities exam: Present: warm, radial pulses palpable and symetrical. Absent : calf tenderness, cyanotic, pedal edema - Skin Skin exam: Present: dry, intact Internal Medicine: Result - Labs CBC & Chem 7: 01/23/17 03:45 01/23/17 03:45 Labs: Short CBC 01/23/17 Range/Units 03:45 WBC 6.4 (4.3-11.1) K/mcL Hgb 10.1 L (11.5-15.4) g/dL Hct 30.9 L (35.3-44.9) % Plt Count 177 (140-400) K/mcL Neutrophils # 3.6 (1.6-8.9) K/mcL BMP 01/23/17 03:45 Sodium 143 Potassium 3.3 L Chloride 108 Carbon Dioxide 30 H BUN 8 Creatinine 0.56 L Glucose 90 Calcium 8.0 L - Impressions Impressions KUB X-Ray 01/21/17 12:15 IMPRESSION: Nonobstructed bowel-gas pattern. D/ / 01/21/2017 13:12:54 Ely Aldana MD / [facility] Interpreting Provider: Ely Aldana MD Consult Discharge Plan - Plan Referrals: Salvador,Mohini G, [employer] [Primary Care Provider] - <Brant Bowser - Last Filed: 01/23/17 18:10> Date of Encounter: 01/23/17 - Constitutional Vitals: Temp Pulse Resp BP Pulse Ox 98.4 F 63 14 136/82 96 01/23/17 14:11 01/23/17 14:11 01/23/17 14:11 01/23/17 14:11 01/23/17 14:11 Internal Medicine: Result - Labs CBC & Chem 7: 01/23/17 03:45 01/23/17 03:45 Labs: Short CBC 01/23/17 Range/Units 03:45 WBC 6.4 (4.3-11.1) K/mcL Hgb 10.1 L (11.5-15.4) g/dL Hct 30.9 L (35.3-44.9) % Plt Count 177 (140-400) K/mcL Neutrophils # 3.6 (1.6-8.9) K/mcL BMP 01/23/17 03:45 Sodium 143 Potassium 3.3 L Chloride 108 Carbon Dioxide 30 H BUN 8 Creatinine 0.56 L Glucose 90 Calcium 8.0 L - Impressions Impressions KUB X-Ray 01/21/17 12:15 IMPRESSION: Nonobstructed bowel-gas pattern. D/ / 01/21/2017 13:12:54 Ely Aldana MD / [facility] [email or web address] Interpreting Provider: Ely Aldana MD - Attending Attestation I examined this patient and my medical decision-making was reviewed with the Resident Physician, Dr. Laguna. I agree with the documented findings, disposition and treatment plan as described except to the extent set forth below. Continue oral vancomycin and IV Flagyl. Will monitor clinically. She reports improvement in her volume of diarrhea over the last 24 hours. It should she appears in no acute distress awake alert oriented. Heart is regular S1-S2. Abdomen is soft and nontender.
[2017-01-23] MEDS: traZODone 50 MG TABLET PO SCH (20:47)
[2017-01-23] MEDS: *HR* OxyCODONE/APAP 5/325 TABLET PO PRN (20:47)
[2017-01-23 21:05] LABS: Adenovirus F 40/41 PCR Not detected (Not detect); Astrovirus PCR Not detected (Not detect); C.difficile Toxin A/B by PCR Not detected (Not detect); Campylobacter by PCR Not detected (Not detect); Cryptosporidium by PCR Not detected (Not detect); Cyclospora cayetanensis PCR Not detected (Not detect); E. coli O157 by PCR Not detected (Not detect); Entamoeba histolytica PCR Not detected (Not detect); Enteroaggregative E.coli(EAEC) Not detected (Not detect); Enteropathogenic E.coli(EPEC) Not detected (Not detect); Enterotoxigenic E.coli (ETEC) Not detected (Not detect); Giardia lamblia PCR Not detected (Not detect); Norovirus GI/GII PCR Not detected (Not detect); Plesiomonas shigelloides PCR Not detected (Not detect); Rotavirus A PCR Not detected (Not detect); Salmonella PCR Not detected (Not detect); Sapovirus PCR Not detected (Not detect); Shig/EnteroinvasiveE coli EIEC Not detected (Not detect); Shigalike tox-prod E coli STEC Not detected (Not detect); Vibrio PCR Not detected (Not detect); Vibrio cholerae PCR Not detected (Not detect); Yersinia enterocolitica PCR Not detected (Not detect)
[2017-01-24 04:30] LABS: BUN/Creatinine Ratio 14 (6-26); Blood Urea Nitrogen 8 mg/dL (7-20); Calcium 8.6 mg/dL (8.6-10.8); Carbon Dioxide 30 mEq/L (19-29); Chloride 107 mEq/L (98-109); Glucose 89 mg/dL (70-99); Magnesium 1.9 mg/dL (1.6-2.6); Osmolality,Calculated 294 (280-300); Potassium 3.8 mEq/L (3.5-4.5); Sodium 143 mEq/L (136-145); eGFR For African Americans > 60 (> 60); eGFR For Non-African Americans > 60 (> 60)
[2017-01-24 04:43] LABS: Basophils # 0.1 K/mcL (0.0-0.2); Basophils % 1.1 %; Eosinophils # 0.5 K/mcL (0.0-0.6); Eosinophils % 9.4 %; Hematocrit 31.8 % (35.3-44.9); Hemoglobin 10.3 g/dL (11.5-15.4); Immature Granulocytes % 0.4 % (0-4); Lymphocytes # 1.8 K/mcL (0.6-4.6); Lymphocytes % 32.4 %; Mean Corpuscular HGB Conc 32.4 g/dL (31.6-35.5); Mean Corpuscular Hemoglobin 28.9 pg (28.0-33.3); Mean Corpuscular Volume 89.1 fL (83.0-100.0); Mean Platelet Volume 9.7 fL (9.4-12.4); Monocytes # 0.5 K/mcL (0.0-1.3); Monocytes % 9.3 %; Neutrophils # 2.6 K/mcL (1.6-8.9); Platelet Count 188 K/mcL (140-400); Red Blood Count 3.57 M/mcL (3.82-4.97); Red Cell Distribution Width 13.3 % (11.5-14.5); Segmented Neutrophils % 47.4 %
[2017-01-24] MEDS: *HR* OxyCODONE ER (12 HR) 10 MG TABLET PO SCH ×2 (06:13→17:28)
[2017-01-24] MEDS: *HR* Enoxaparin 40 MG/0.4 ML SYRINGE SQ SCH (06:13)
[2017-01-24] MEDS: Lactobacillus 1 EACH CAP.SPRINK PO SCH ×2 (08:15→20:52)
[2017-01-24] MEDS: metroNIDAZOLE 500 MG TABLET PO SCH ×3 (08:15→20:52)
[2017-01-24] MEDS: Cholestyramine 4 GM POWD.PACK PO SCH ×3 (08:16→17:21)
[2017-01-24] MEDS: Multivit/Ca/Min/Fe/FA 1 TAB TABLET PO SCH (08:16)
[2017-01-24] MEDS: Aspirin Enteric Coated 81 MG Tablet PO SCH (08:16)
[2017-01-24] MEDS: Cholecalciferol (D-3) 1,000 UNIT TABLET PO SCH (08:16)
[2017-01-24] MEDS: Famotidine 20 MG TABLET PO SCH ×2 (08:16→17:27)
[2017-01-24] MEDS: Vancomycin Oral Soln 250 MG/2.5 ML UDC PO SCH ×4 (08:16→20:52)
--- NOTE | 2017-01-24 13:12 | Internal Med Progress Note ---
<Sebas Laguna - Last Filed: 01/24/17 13:03> Date of Encounter: 01/24/17 Time of Encounter: 08:45 - Assessment and plan (1) Clostridium difficile infection Current Visit: Yes Status: Acute Assessment and plan: 01/24/17 Patient had GI panel. It was negative. Paient tested negative for C diff infection as well. However she is still quite symptomatic and having multiple stools per day. She has hd very little change in her bowel movements depite being on high dose PO vancomycin and flagyl. This makes me question as to whether or not she actually had C diff. she was tested for the C dfii B toxin gene. This may have been a false positive. I question as to whether or not this can be a side effect from her chemotherapy. I have consulted oncology and discussed the patient with the oncology team. I will also send for Stool lytes and fecal fats. We will calculate a stool anion gap. This may help us determine if she has a secretory or osmotic diarrhea. I reviewed medications as well. I do not see that any of her current medications or treatments would be causing this. If felt to be from chemotherapy or a non infectious etiology will consider adding some antidiarrheals for symptoms control Continue Iv fluids. I appreciate the input of Oncology. (2) Breast cancer, stage 4 Current Visit: Yes Status: Acute Assessment and plan: currently on palliative chemotherapy with faslodex. She will need to follow up with oncology as outpatient. Qualifiers: Qualified Code(s): C50.919 - Malignant neoplasm of unspecified site of unspecified female breast (3) Cancer associated pain Current Visit: Yes Status: Acute Assessment and plan: continue Oxycontin ER and PRN Percocet for breakthrough. pain. continue to monitor for adverse effects. (4) Bone metastases Current Visit: Yes Status: Acute (5) Anemia Current Visit: Yes Status: Acute Assessment and plan: stable /trending up. Qualifiers: Qualified Code(s): D64.9 - Anemia, unspecified (6) DVT prophylaxis Current Visit: Yes Status: Acute Assessment and plan: SQ lovenox. - Subjective Interval history: No major events overnight. Patient states that she continues to have ongoing loose bowel movements. She states that she had 8-10 yesterday. she has 2 this AM. She denies any blood in her stool states the color is brown. she dose admit to some mild crampy abdominal pain. she states that she still has bone pain but that it is better controlled now and tolerable. She denies chest pain and dyspnea. she has no further complaints or concerns at this time. - Constitutional Vitals: Temp Pulse Resp BP Pulse Ox 98.5 F 75 19 132/97 95 01/24/17 11:56 01/24/17 11:56 01/24/17 11:56 01/24/17 11:56 01/24/17 11:56 General appearance: Present: cooperative, A&O X 3, pleasant, no acute distress, answers questions appropriately - Head Head exam: Present: atraumatic, normocephalic - Eye Eye exam: Present: PERRL, conjuntiva pink, sclera anicteric Pupils: Present: PERRL - ENT ENT exam: Present: mucous membranes moist - Neck Neck exam general surgery: Present: supple, trachea midline. Absent: lymphadenopathy - Respiratory Respiratory exam: Present: CTAB. Absent: accessory muscle use, rales, rhonchi, wheezes - Cardiovascular Cardiovascular exam: Present: RRR, +S1, +S2. Absent: diastolic murmur, gallop, rubs, systolic murmur - GI/Abdominal GI/Abdominal exam: Present: distended (mildly), normal bowel sounds, soft, tenderness (mild diffuse), no peritoneal signs - Extremities Exam Extremities exam: Present: warm, radial pulses palpable and symetrical. Absent : calf tenderness, cyanotic, pedal edema - Skin Skin exam: Present: dry, intact Internal Medicine: Result - Labs CBC & Chem 7: 01/24/17 03:59 01/24/17 03:59 Labs: Short CBC 01/24/17 Range/Units 03:59 WBC 5.4 (4.3-11.1) K/mcL Hgb 10.3 L (11.5-15.4) g/dL Hct 31.8 L (35.3-44.9) % Plt Count 188 (140-400) K/mcL Neutrophils # 2.6 (1.6-8.9) K/mcL BMP 01/24/17 03:59 Sodium 143 Potassium 3.8 Chloride 107 Carbon Dioxide 30 H BUN 8 Creatinine 0.59 Glucose 89 Calcium 8.6 Consult Discharge Plan - Plan Referrals: Mohini Franco CNP [Primary Care Provider] - <Brant Bowser - Last Filed: 01/24/17 17:12> Date of Encounter: 01/24/17 - Constitutional Vitals: Temp Pulse Resp BP Pulse Ox 98.0 F 68 16 139/79 96 01/24/17 15:17 01/24/17 15:17 01/24/17 15:17 01/24/17 15:17 01/24/17 15:17 Internal Medicine: Result - Labs CBC & Chem 7: 01/24/17 03:59 01/24/17 03:59 Labs: Short CBC 01/24/17 Range/Units 03:59 WBC 5.4 (4.3-11.1) K/mcL Hgb 10.3 L (11.5-15.4) g/dL Hct 31.8 L (35.3-44.9) % Plt Count 188 (140-400) K/mcL Neutrophils # 2.6 (1.6-8.9) K/mcL BMP 01/24/17 03:59 Sodium 143 Potassium 3.8 Chloride 107 Carbon Dioxide 30 H BUN 8 Creatinine 0.59 Glucose 89 Calcium 8.6 - Attending Attestation I examined this patient and my medical decision-making was reviewed with Dr. Laguna, Resident Physician. I agree with the documented findings, disposition and treatment plan as described except to the extent set forth below. Patient continues To complain of 4-5 liquid bowel movements today, no associated abdominal pain. Examination reveals abdomen soft nontender nondistended normoactive bowel sounds. Plan: Follow up stool studies. Continue with antibiotics for C. difficile. Follow-up with oncology.
[2017-01-24] MEDS: traZODone 50 MG TABLET PO SCH (20:52)
[2017-01-24] MEDS: *HR* OxyCODONE/APAP 5/325 TABLET PO PRN (22:03)
[2017-01-25 03:51] LABS: Basophils # 0.1 K/mcL (0.0-0.2); Basophils % 1.1 %; Eosinophils # 0.4 K/mcL (0.0-0.6); Hematocrit 33.1 % (35.3-44.9); Hemoglobin 10.9 g/dL (11.5-15.4); Immature Granulocytes % 0.2 % (0-4); Lymphocytes # 2.1 K/mcL (0.6-4.6); Mean Corpuscular HGB Conc 32.9 g/dL (31.6-35.5); Mean Platelet Volume 9.5 fL (9.4-12.4); Monocytes # 0.5 K/mcL (0.0-1.3); Monocytes % 8.6 %; Neutrophils # 2.3 K/mcL (1.6-8.9); Platelet Count 190 K/mcL (140-400); Red Blood Count 3.76 M/mcL (3.82-4.97); Red Cell Distribution Width 13.6 % (11.5-14.5); Segmented Neutrophils % 43.1 %
[2017-01-25 04:12] LABS: BUN/Creatinine Ratio 13 (6-26); Blood Urea Nitrogen 8 mg/dL (7-20); Calcium 8.9 mg/dL (8.6-10.8); Carbon Dioxide 29 mEq/L (19-29); Chloride 105 mEq/L (98-109); Glucose 92 mg/dL (70-99); Osmolality,Calculated 292 (280-300); Potassium 3.4 mEq/L (3.5-4.5); Sodium 142 mEq/L (136-145); eGFR For African Americans > 60 (> 60); eGFR For Non-African Americans > 60 (> 60)
--- NOTE | 2017-01-25 05:18 | Oncology Inp Consult Note ---
Date of Encounter: 01/25/17 Time of Encounter: 06:00 - Data of Consult Patient: known to practice within the last 3 years Consult date: 01/25/17 Requesting Physician: Brant Bowser MD Primary Care Provider: Mohini Franco CNP - Consult Narrative Reason for consult: Metastatic breast cancer History of present illness: Ms. Lemons is a 66 year old female patient of the cancer center who has established oncologic care for metastatic breast cancer. She was last seen in the office 12/25/16. I have summarized patient's heme/onc background below based on my most recent office report. Oncology Hx: In June 1997, she had a left mastectomy for a 4.7 cm, grade 2, ER/GA positive breast cancer with 9/25 lymph nodes involved. She went on to receive 4 cycles of adjuvant Adriamycin and Cytoxan followed by Tamoxifen. In June 1998 she had a biopsy-proven left chest wall recurrence. Bone scan suggested rib involvement and two lytic lesions in the shaft of left humerus. She established with our cancer center in November 1998 and went on to receive a prolonged course of Taxotere monotherapy for more than 5 years followed by [facility]. After more than 10 yrs of endocrine therapy with no evidence of disease progression, we decided to give her a break from endocrine therapy in March 2015. She was subsequently maintained on Evista for both bone health and control of her hormone receptor positive breast cancer. She also received bone health measures including bisphosphonates (Aredia, Zometa and Actonel at different times) Surveillance imaging for her breast cancer 09/17/16 showed: Interval development of new, pleural-based masses involving the left lung concerning for metastatic disease. Small left-sided pleural effusion posteriorly. Multiple low density liver lesions likely cyst versus hemangioma. No evidence of intra-abdominal/pelvic metastases. CT-guided biopsy left lung 10/16/16 confirmed metastatic breast cancer immunopositive for CK 7 and DANNY 3. ER GA positive HER-2 negative by IHC. Tumor marker Ca 27.29 was 51 on 09/19/16. This will be used for disease monitoring along with scans. On 10/18/16, she started Faslodex monotherapy with plan to treat to progression or intolerance. We decided to hold off on Palbociclib which was recently approved for frontline management of metastatic breast cancer given her low disease burden and minimal associated symptoms. We will plan to intensify her treatment if less than optimal response to single agent Faslodex. Treatment summary: June 1997: Left mastectomy followed by 4 cycles of adjuvant Adriamycin + Cytoxan regimen, then tamoxifen. 1998-03/22/05: Taxotere monotherapy for metastatic breast cancer with bone involvement. Treatment stopped after 82 doses for chemo break. 08/31/04-08/13/13: Femara monotherapy. Stopped after 10 years of treatment due to good disease control. Continued Evista while off endocrine therapy. 10/18/16: Started Faslodex monotherapy. Ongoing.Plan is to treat to progression or intolerance. Most recent imaging: CT chest abdomen and pelvis and bone scan 12/19/16 compatible with stable disease. There is concern about a new, subtle focus of indeterminate activity at the occiput, right sixth costovertebral junction, mid femoral diaphyses concerning for developing metastases. Most recent tumor marker: CA-27-29 was 51 on 09/19/16. Was not elevated prior. Most recently 45 on 12/13/16. Patient is currently hospitalized for severe diarrhea concerning for infectious etiology. Stool w/u including C.Diff testing has returned negative and she continues to have unexplained diarrhea despite several days of empiric antibiotics for C. difficile coverage. Oncology is consulted due to concern about contribution from ongoing endocrine therapy to her diarrhea symptoms. Patient seen and examined at bedside. Chart reviewed for details of ongoing care by hospitalist team which is much appreciated. She is still having several results of loose bowel movement today although no longer have a large following diarrhea. She reports about bowel movements yesterday alone. Fortunately, no febrile episodes in the last several days. She does not have any other symptoms attributable to her underlying cancer diagnosis. Rest of past medical, surgical, family, social history detailed below and verified with patient today. Review of systems: 12 point review of systems performed with patient and positive findings noted in history of present illness. All other systems are negative: Physical exam: Vital Signs Temp 98.6 F 01/25/17 03:56 Pulse 73 01/25/17 03:56 Resp 16 01/25/17 03:56 BP 116/64 01/25/17 03:56 Pulse Ox 95 01/25/17 03:56 GENERAL: Alert and oriented, comfortable appearing. Mental Status: Affect appropriate for circumstances HEENT: Sclerae anicteric. No mucositis or thrush. No other oral or pharyngeal lesions or erythema. Skin: No rashes or petechiae. No evidence of skin malignancy Lymph nodes: No cervical, supraclavicular, axillary, or inguinal adenopathy. Lungs: Clear to auscultation bilaterally. Clear to percussion bilaterally. Cardiovascular: Regular rate and rhythm. No gallops, murmurs, or rubs. Abdomen: Soft, nontender; No organomegaly or masses palpable. Extremities: No edema. No calf swelling or tenderness. No joint deformity. Neurologic: Alert, normal gait; no focal weakness or sensory abnormalities. Results: Laboratory Last Values WBC 5.4 K/mcL (4.3-11.1) 01/25/17 03:25 RBC 3.76 M/mcL (3.82-4.97) L 01/25/17 03:25 Hgb 10.9 g/dL (11.5-15.4) L 01/25/17 03:25 Hct 33.1 % (35.3-44.9) L 01/25/17 03:25 MCV 88.0 fL (83.0-100.0) 01/25/17 03:25 MCH 29.0 pg (28.0-33.3) 01/25/17 03:25 MCHC 32.9 g/dL (31.6-35.5) 01/25/17 03:25 RDW 13.6 % (11.5-14.5) 01/25/17 03:25 Plt Count 190 K/mcL (140-400) 01/25/17 03:25 MPV 9.5 fL (9.4-12.4) 01/25/17 03:25 Immature Gran % 0.2 % (0-4) 01/25/17 03:25 Seg Neutrophils % 43.1 % 01/25/17 03:25 Lymphocytes % 39.0 % 01/25/17 03:25 Monocytes % 8.6 % 01/25/17 03:25 Eosinophils % 8.0 % 01/25/17 03:25 Basophils % 1.1 % 01/25/17 03:25 Neutrophils # 2.3 K/mcL (1.6-8.9) 01/25/17 03:25 Lymphocytes # 2.1 K/mcL (0.6-4.6) 01/25/17 03:25 Monocytes # 0.5 K/mcL (0.0-1.3) 01/25/17 03:25 Eosinophils # 0.4 K/mcL (0.0-0.6) 01/25/17 03:25 Basophils # 0.1 K/mcL (0.0-0.2) 01/25/17 03:25 Sodium 142 mEq/L (136-145) 01/25/17 03:25 Potassium 3.4 mEq/L (3.5-4.5) L 01/25/17 03:25 Chloride 105 mEq/L (98-109) 01/25/17 03:25 Carbon Dioxide 29 mEq/L (19-29) 01/25/17 03:25 BUN 8 mg/dL (7-20) 01/25/17 03:25 Creatinine 0.63 mg/dL (0.57-1.11) 01/25/17 03:25 Est GFR ( Amer) > 60 (> 60) 01/25/17 03:25 Est GFR (Non-Af Amer) > 60 (> 60) 01/25/17 03:25 BUN/Creatinine Ratio 13 (6-26) 01/25/17 03:25 Glucose 92 mg/dL (70-99) 01/25/17 03:25 POC Glucose 117 (58-89) H 01/24/17 20:23 Calculated Osmolality 292 (280-300) 01/25/17 03:25 Calcium 8.9 mg/dL (8.6-10.8) 01/25/17 03:25 Phosphorus 2.7 mg/dL (2.3-4.7) 01/20/17 03:25 Magnesium 2.0 mg/dL (1.6-2.6) 01/25/17 03:25 Total Bilirubin 0.2 mg/dL (0.2-1.2) 01/20/17 03:25 Direct Bilirubin 0.1 mg/dL (0.0-0.5) 01/20/17 03:25 Indirect Bilirubin 0.1 mg/dL (0.0-1.2) 01/20/17 03:25 AST 14 Units/L (5-34) 01/20/17 03:25 ALT 10 Units/L (0-55) 01/20/17 03:25 Alkaline Phosphatase 59 Units/L (38-126) 01/20/17 03:25 Serum Total Protein 5.9 g/dL (6.0-8.3) L 01/20/17 03:25 Albumin 2.6 g/dL (3.5-5.0) L 01/20/17 03:25 Globulin 3.3 g/dL (2.4-3.5) 01/20/17 03:25 Albumin/Globulin Ratio 0.8 (1.1-2.2) L 01/20/17 03:25 Urine Color Yellow (Yellow) 01/18/17 03:50 Urine Clarity Clear (Clear) 01/18/17 03:50 Urine pH 6.5 pH Units (5.0-8.0) 01/18/17 03:50 Ur Specific [place] 1.016 (1.010-1.025) 01/18/17 03:50 Urine Protein Negative mg/dL (Neg-Trace) 01/18/17 03:50 Urine Glucose (UA) Normal mg/dL (Normal) 01/18/17 03:50 Urine Ketones Negative mg/dL (Negative) 01/18/17 03:50 Urine Blood Negative (Negative) 01/18/17 03:50 Urine Nitrite Negative (Negative) 01/18/17 03:50 Urine Bilirubin Negative (Negative) 01/18/17 03:50 Urine Urobilinogen Normal mg/dL (Normal) 01/18/17 03:50 Ur Leukocyte Esterase Negative (Negative) 01/18/17 03:50 Ur Culture Indicated? NO (NO) 01/18/17 03:50 Stl C. cayetanensis PCR Not detected (Not detect) 01/23/17 18:45 Stool Rotavirus A PCR Not detected (Not detect) 01/23/17 18:45 Stl Adenov F 40/41 PCR Not detected (Not detect) 01/23/17 18:45 Stool Astrovirus (PCR) Not detected (Not detect) 01/23/17 18:45 Stool Campylobacter PCR Not detected (Not detect) 01/23/17 18:45 Stl C. diff Tox A/B PCR Not detected (Not detect) 01/23/17 18:45 Stool Cryptosporidium PCR Not detected (Not detect) 01/23/17 18:45 Stl Sh Tox Pr E STEC PCR Not detected (Not detect) 01/23/17 18:45 Stool E coli O157 PCR Not detected (Not detect) 01/23/17 18:45 Stl Enterotoxigenic E PCR Not detected (Not detect) 01/23/17 18:45 Stool EPEC (PCR) Not detected (Not detect) 01/23/17 18:45 Stool EAEC (PCR) Not detected (Not detect) 01/23/17 18:45 Stl E. histolytica PCR Not detected (Not detect) 01/23/17 18:45 Stool Giardia Lamblia PCR Not detected (Not detect) 01/23/17 18:45 Stool Salmonella PCR Not detected (Not detect) 01/23/17 18:45 Stool Sapovirus (PCR) Not detected (Not detect) 01/23/17 18:45 Stl P. shigelloides PCR Not detected (Not detect) 01/23/17 18:45 Stl Shigella/EIEC PCR Not detected (Not detect) 01/23/17 18:45 St Y.enterocolitica PCR Not detected (Not detect) 01/23/17 18:45 Stool Vibrio (PCR) Not detected (Not detect) 01/23/17 18:45 Stl Vibrio cholerae PCR Not detected (Not detect) 01/23/17 18:45 Stl Norovirus GI/GII PCR Not detected (Not detect) 01/23/17 18:45 Stl GI Panel (PCR) Com See below 01/23/17 18:45 Radiographic studies: I personally reviewed and interpreted patient's most recent imaging studies dated 01/21/17. I discussed the findings with the patient today. KUB X-Ray 01/21/17 12:15 IMPRESSION: Nonobstructed bowel-gas pattern. D/ / 01/21/2017 13:12:54 Ely Aldana MD / tyrese Interpreting Provider: Ely Aldana MD Impression/recommendations: Intractable diarrhea: Patient has not received chemotherapy in the last several years and I'm not sure if diarrhea is explained on the basis of ongoing endocrine therapy. I informed the patient today that diarrhea is not a commonly described side effect of Faslodex and I think is reasonable to exclude other causes of her diarrhea as you're currently doing. Given negative C. difficile testing so far and lack of response to Flagyl and back oral vancomycin, it may be reasonable to involve GI for endoscopic evaluation Metastatic breast cancer: Breast cancer has been stable based on recent imaging. Last treatment was on 12/13/16 when she received Faslodex and Xgeva for injection. Being this far out from her last treatment, I do not believe this is contributing to her current hospital admission for diarrhea. She missed her last appointment with me in the office and will tentatively make her an outpatient follow-up in 2 weeks at which time I'm hoping that she will have been discharged from the hospital. Anemia: CBC was completely normal on 12/13/16. Anemia is a new development. Etiology unclear. Would recommend to complete an anemia workup to evaluate diagnostic considerations including: Iron panel, ferritin, TIBC, folate, B12, haptoglobin, Zena, TSH, T4, ESR, CRP , peripheral blood flow cytometry, SPEP, GIOVANNA. No intervention needed for her current hemoglobin level but would recommend transition to maintain hemoglobin of 7 or greater. If she is actively bleeding, we'll maintain a lower threshold of 8-9 for transfusion. We'll follow the patient along side you during this hospitalization but please do not hesitate to call regarding interval hematologic questions as they arise. Thank you for your excellent ongoing care for allowing us to see her while in- house. This report was created using voice recognition software and may contain errors. It was signed but not edited to expedite communication. Corrections will be made in a separate addendum as needed. Past Med Surg Social Fam HX - Past Medical History Medical history: cancer, CVA, seizures, TIA Psychiatric history: anxiety, depression - Past Surgical History Surgical History: breast surgery, cancer surgery, other - Social History Smoking Status: Former smoker Smokeless Tobacco Status: No Alcohol use: none Drug use: none - Family History Mother Living Status: Medications and Allergies Multivitamin/Ferrous Sulfate [One-Daily Tqref-Bep-Ezcn Tab] 18 mg PO DAILY #0 09/21/15 [History] Aspirin [Adult Low Dose Aspirin EC] 81 mg PO DAILY 10/10/15 [History] Carvedilol [Coreg] 25 mg PO BID 10/10/15 [History] Sertraline [Zoloft] 150 mg PO DAILY 10/10/15 [History] Trazodone HCl [TraZODone] 50 mg PO HS 10/10/15 [History] Ranitidine HCl [Zantac] 150 mg PO BID 01/19/16 [History] Albuterol Sulfate [Albuterol Inhaler] 2 puff IH Q4H PRN 04/30/16 [History] Calcium Carbonate/Vitamin D3 [Calcium 600 + Vit D Tablet] 2 tab PO BID #60 tablet 11/09/16 [Rx] Atorvastatin Calcium [Lipitor] 20 mg PO QPM 01/18/17 [History] Clopidogrel [Plavix] 75 mg PO DAILY 01/18/17 [History] Fluticasone Propionate Nasal [Flonase] 100 mcg NS DAILY 01/18/17 [History] LORazepam [Ativan] 0.5 mg PO TID PRN 01/18/17 [History] Allergies iodine Allergy (Unknown, Verified 01/17/17 23:09) Difficulty Breathing Iodinated Contrast Media - Oral and [Iodinated Contrast Media - IV Dye] Allergy (Verified 01/17/17 23:09) Difficulty Breathing Opioids - Morphine Analogues Adverse Reaction (Unknown, Verified 01/17/17 23:09) Itching nausea watermelon Allergy (Unknown, Uncoded 04/26/16 12:51) Itching Oncology - Exam - Constitutional Vitals: Temp Pulse Resp BP Pulse Ox 98.6 F 73 16 116/64 95 01/25/17 03:56 01/25/17 03:56 01/25/17 03:56 01/25/17 03:56 01/25/17 03:56 Oncology - Results - Labs Labs: Short CBC 01/25/17 Range/Units 03:25 WBC 5.4 (4.3-11.1) K/mcL Hgb 10.9 L (11.5-15.4) g/dL Hct 33.1 L (35.3-44.9) % Plt Count 190 (140-400) K/mcL Neutrophils # 2.3 (1.6-8.9) K/mcL BMP 01/25/17 03:25 Sodium 142 Potassium 3.4 L Chloride 105 Carbon Dioxide 29 BUN 8 Creatinine 0.63 Glucose 92 Calcium 8.9 Consult Discharge Plan - Plan Referrals: Mohini Franco, RESIDENT ASSISTANT [Primary Care Provider] -
[2017-01-25] MEDS: *HR* OxyCODONE ER (12 HR) 10 MG TABLET PO SCH (05:58)
[2017-01-25] MEDS: Famotidine 20 MG TABLET PO SCH ×2 (06:15→18:11)
[2017-01-25] MEDS: *HR* Enoxaparin 40 MG/0.4 ML SYRINGE SQ SCH (06:15)
[2017-01-25] MEDS ORDERED: Potassium Chloride Elixir 20 MEQ/15 ML UDC PO ONE (06:53)
[2017-01-25] MEDS: Aspirin Enteric Coated 81 MG Tablet PO SCH (08:10)
[2017-01-25] MEDS: metroNIDAZOLE 500 MG TABLET PO SCH ×3 (08:10→22:15)
[2017-01-25] MEDS: Multivit/Ca/Min/Fe/FA 1 TAB TABLET PO SCH (08:10)
[2017-01-25] MEDS: Lactobacillus 1 EACH CAP.SPRINK PO SCH ×2 (08:10→22:15)
[2017-01-25] MEDS: Cholecalciferol (D-3) 1,000 UNIT TABLET PO SCH (08:10)
[2017-01-25] MEDS: Vancomycin Oral Soln 250 MG/2.5 ML UDC PO SCH ×4 (08:10→22:15)
--- NOTE | 2017-01-25 10:07 | Internal Med Progress Note ---
<Sebas Laguna - Last Filed: 01/25/17 10:09> Date of Encounter: 01/25/17 Time of Encounter: 10:06 - Assessment and plan (1) Clostridium difficile infection Current Visit: Yes Status: Acute Assessment and plan: patient continues to have multiple bowel movements. She is having some slow improvement. Continue vancomycin and Flagyl. we will follow up with oncologies recommendations. stool lytes are pending. (2) Breast cancer, stage 4 Current Visit: Yes Status: Acute Assessment and plan: currently on palliative chemotherapy with faslodex. She will need to follow up with oncology as outpatient. (3) Cancer associated pain Current Visit: Yes Status: Acute Assessment and plan: Still not optimal.. Will consider increaseing her Oxycontin ER. (4) Bone metastases Current Visit: Yes Status: Acute (5) Anemia Current Visit: Yes Status: Acute Assessment and plan: stable /trending up. normocytic New since admission. Likely a combination of lab draws and IV fluids. In the setting of metastatic Breast cancer. continue to monitor. (6) DVT prophylaxis Current Visit: Yes Status: Acute Assessment and plan: SQ lovenox. - Subjective Interval history: No major events overnight.Patient continues to have multiple bowel movements. She states she had at least 10 yesterday. However she states that they are more formed and less voluminous. She states she continues have pain. She states she is not comfortable. She states the pain has not changed location. Still in her back and legs. she denies any numbness, weakness, or urinary incontinence. She has no further complaints or concerns at this time. - Constitutional Vitals: Temp Pulse Resp BP Pulse Ox 97.9 F 71 16 147/77 94 01/25/17 08:00 01/25/17 08:00 01/25/17 08:00 01/25/17 08:00 01/25/17 08:00 General appearance: Present: cooperative, A&O X 3, pleasant, no acute distress, answers questions appropriately - Head Head exam: Present: atraumatic, normal inspection, normocephalic - Eye Eye exam: Present: PERRL, conjuntiva pink, sclera anicteric Pupils: Present: PERRL - Neck Neck exam general surgery: Present: supple, trachea midline. Absent: lymphadenopathy - Respiratory Respiratory exam: Present: CTAB. Absent: accessory muscle use, rales, rhonchi, wheezes - Cardiovascular Cardiovascular exam: Present: RRR, +S1, +S2. Absent: diastolic murmur, gallop, rubs, systolic murmur - GI/Abdominal GI/Abdominal exam: Present: normal bowel sounds, soft, tenderness (mild and diffuse), no peritoneal signs. Absent: distended - Extremities Exam Extremities exam: Present: warm, radial pulses palpable and symetrical. Absent : calf tenderness, cyanotic, pedal edema - Skin Skin exam: Present: dry, intact Internal Medicine: Result - Labs CBC & Chem 7: 01/25/17 03:25 01/25/17 03:25 Labs: Short CBC 01/25/17 Range/Units 03:25 WBC 5.4 (4.3-11.1) K/mcL Hgb 10.9 L (11.5-15.4) g/dL Hct 33.1 L (35.3-44.9) % Plt Count 190 (140-400) K/mcL Neutrophils # 2.3 (1.6-8.9) K/mcL BMP 01/25/17 03:25 Sodium 142 Potassium 3.4 L Chloride 105 Carbon Dioxide 29 BUN 8 Creatinine 0.63 Glucose 92 Calcium 8.9 Consult Discharge Plan - Plan Referrals: Mohini Franco, UPPER EXTREMITY SURGEON [Primary Care Provider] - <Brant Bowser - Last Filed: 01/25/17 19:13> Date of Encounter: 01/25/17 - Constitutional Vitals: Temp Pulse Resp BP Pulse Ox 97.9 F 69 16 129/75 94 01/25/17 15:00 01/25/17 15:00 01/25/17 15:00 01/25/17 15:00 01/25/17 15:00 Internal Medicine: Result - Labs CBC & Chem 7: 01/25/17 03:25 01/25/17 03:25 Labs: Short CBC 01/25/17 Range/Units 03:25 WBC 5.4 (4.3-11.1) K/mcL Hgb 10.9 L (11.5-15.4) g/dL Hct 33.1 L (35.3-44.9) % Plt Count 190 (140-400) K/mcL Neutrophils # 2.3 (1.6-8.9) K/mcL BMP 01/25/17 03:25 Sodium 142 Potassium 3.4 L Chloride 105 Carbon Dioxide 29 BUN 8 Creatinine 0.63 Glucose 92 Calcium 8.9 - Attending Attestation I examined this patient and my medical decision-making was reviewed with the Resident Physician. I agree with the documented findings, disposition and treatment plan as described except to the extent set forth below. I will resend a C. difficile sample given that initially C. difficile was positive and repeat stool testing was negative. I suspect the possibility of an initial false-positive sample. Until this is resulted we will continue with vancomycin and Flagyl. Patient reports 5-6 soft bowel movements a day. On exam her abdomen is soft nontender nondistended.
[2017-01-25] MEDS: Cholestyramine 4 GM POWD.PACK PO SCH ×3 (10:33→17:48)
[2017-01-25] MEDS: *HR* OxyCODONE/APAP 5/325 TABLET PO PRN ×2 (10:58→22:35)
[2017-01-25] MEDS: *HR* OxyCODONE ER (12 HR) 20 MG TABLET PO SCH (14:11)
[2017-01-25] MEDS: traZODone 50 MG TABLET PO SCH (22:15)
[2017-01-26] MEDS: *HR* OxyCODONE ER (12 HR) 20 MG TABLET PO SCH ×3 (00:45→23:27)
[2017-01-26 04:10] LABS: Basophils # 0.1 K/mcL (0.0-0.2); Basophils % 1.1 %; Eosinophils # 0.4 K/mcL (0.0-0.6); Hematocrit 32.3 % (35.3-44.9); Hemoglobin 10.6 g/dL (11.5-15.4); Immature Granulocytes % 0.6 % (0-4); Immature Platelets 2.9 % (1.1-6.1); Lymphocytes # 1.8 K/mcL (0.6-4.6); Lymphocytes % 33.6 %; Mean Corpuscular HGB Conc 32.8 g/dL (31.6-35.5); Mean Corpuscular Hemoglobin 28.9 pg (28.0-33.3); Mean Platelet Volume 9.4 fL (9.4-12.4); Monocytes # 0.5 K/mcL (0.0-1.3); Monocytes % 9.7 %; Neutrophils # 2.5 K/mcL (1.6-8.9); Platelet Count 198 K/mcL (140-400); Red Blood Count 3.67 M/mcL (3.82-4.97); Red Cell Distribution Width 13.7 % (11.5-14.5)
[2017-01-26 04:26] LABS: BUN/Creatinine Ratio 17 (6-26); Blood Urea Nitrogen 11 mg/dL (7-20); Calcium 8.9 mg/dL (8.6-10.8); Carbon Dioxide 32 mEq/L (19-29); Chloride 103 mEq/L (98-109); Glucose 90 mg/dL (70-99); Magnesium 1.7 mg/dL (1.6-2.6); Osmolality,Calculated 291 (280-300); Potassium 3.9 mEq/L (3.5-4.5); Sodium 141 mEq/L (136-145); eGFR For African Americans > 60 (> 60); eGFR For Non-African Americans > 60 (> 60)
[2017-01-26] MEDS: *HR* Enoxaparin 40 MG/0.4 ML SYRINGE SQ SCH (06:33)
[2017-01-26] MEDS: Cholestyramine 4 GM POWD.PACK PO SCH ×3 (09:36→14:56)
[2017-01-26] MEDS: Lactobacillus 1 EACH CAP.SPRINK PO SCH ×2 (09:38→20:30)
[2017-01-26] MEDS: metroNIDAZOLE 500 MG TABLET PO SCH (09:39)
[2017-01-26] MEDS: Multivit/Ca/Min/Fe/FA 1 TAB TABLET PO SCH (09:39)
[2017-01-26] MEDS: Aspirin Enteric Coated 81 MG Tablet PO SCH (09:39)
[2017-01-26] MEDS: Cholecalciferol (D-3) 1,000 UNIT TABLET PO SCH (09:39)
[2017-01-26] MEDS: Famotidine 20 MG TABLET PO SCH ×2 (09:39→15:25)
[2017-01-26] MEDS: Vancomycin Oral Soln 250 MG/2.5 ML UDC PO SCH ×2 (09:46→12:43)
--- NOTE | 2017-01-26 17:24 | Internal Med Progress Note ---
<Sebas Laguna - Last Filed: 01/26/17 17:22> Date of Encounter: 01/26/17 Time of Encounter: 08:05 - Assessment and plan (1) Clostridium difficile infection Current Visit: Yes Status: Acute Assessment and plan: I am convinced now that this was a false positive test initially. she has had 2 repeat test both of which are negative. Additionally no change on the antibiotics. Appreciate Oncologies input. Unlikely from faslodex. we will stop antibiotics. Ok to DC precautions. Start immodium. If we can control her symptoms we may be able to DC er in the AM. If not we will consult GI in the AM. (2) Breast cancer, stage 4 Current Visit: Yes Status: Acute Assessment and plan: currently on palliative chemotherapy with faslodex. She will need to follow up with oncology as outpatient. (3) Cancer associated pain Current Visit: Yes Status: Acute Assessment and plan: Still not optimal.. Will consider increaseing her Oxycontin ER. (4) Bone metastases Current Visit: Yes Status: Acute (5) Anemia Current Visit: Yes Status: Acute Assessment and plan: stable / mild trend down. normocytic New since admission. Likely a combination of lab draws and IV fluids. In the setting of metastatic Breast cancer. continue to monitor. (6) DVT prophylaxis Current Visit: Yes Status: Acute Assessment and plan: SQ lovenox. - Subjective Interval history: No major evetns overngith. the patient reports continued loose bowel movements. Around 8 yesterday. she admits to some diffuse colicky abdominal pain that is mild. she denies any dyspnea, cough, chest pain. She states that her pain in her back and legs is much better controlled. she has no further complaints or concerns at this time. - Constitutional Vitals: Temp Pulse Resp BP Pulse Ox 98.1 F 60 12 127/72 96 01/26/17 16:49 01/26/17 16:49 01/26/17 16:49 01/26/17 16:49 01/26/17 16:49 General appearance: Present: cooperative, A&O X 3, pleasant, no acute distress, answers questions appropriately - Head Head exam: Present: atraumatic, normocephalic - Eye Eye exam: Present: PERRL, conjuntiva pink, sclera anicteric Pupils: Present: PERRL - Neck Neck exam general surgery: Present: supple, trachea midline. Absent: lymphadenopathy - Respiratory Respiratory exam: Present: CTAB. Absent: accessory muscle use, rales, rhonchi, wheezes - Cardiovascular Cardiovascular exam: Present: RRR, +S1, +S2. Absent: diastolic murmur, gallop, rubs, systolic murmur - GI/Abdominal GI/Abdominal exam: Present: normal bowel sounds, soft, tenderness (mild and diffuse. ), no peritoneal signs. Absent: distended - Extremities Exam Extremities exam: Present: pedal edema, warm, radial pulses palpable and symetrical. Absent: calf tenderness, cyanotic - Skin Skin exam: Present: dry, intact Internal Medicine: Result - Labs CBC & Chem 7: 01/26/17 03:53 01/26/17 03:53 Labs: Short CBC 01/26/17 Range/Units 03:53 WBC 5.3 (4.3-11.1) K/mcL Hgb 10.6 L (11.5-15.4) g/dL Hct 32.3 L (35.3-44.9) % Plt Count 198 (140-400) K/mcL Neutrophils # 2.5 (1.6-8.9) K/mcL BMP 01/26/17 03:53 Sodium 141 Potassium 3.9 Chloride 103 Carbon Dioxide 32 H BUN 11 Creatinine 0.65 Glucose 90 Calcium 8.9 Consult Discharge Plan - Plan Referrals: Mohini Franco, SHIPWRIGHT APPRENTICE [Primary Care Provider] - <Brant Bowser - Last Filed: 01/26/17 18:29> Date of Encounter: 01/26/17 - Constitutional Vitals: Temp Pulse Resp BP Pulse Ox 98.1 F 60 12 127/72 96 01/26/17 16:49 01/26/17 16:49 01/26/17 16:49 01/26/17 16:49 01/26/17 16:49 Internal Medicine: Result - Labs CBC & Chem 7: 01/26/17 03:53 01/26/17 03:53 Labs: Short CBC 01/26/17 Range/Units 03:53 WBC 5.3 (4.3-11.1) K/mcL Hgb 10.6 L (11.5-15.4) g/dL Hct 32.3 L (35.3-44.9) % Plt Count 198 (140-400) K/mcL Neutrophils # 2.5 (1.6-8.9) K/mcL BMP 01/26/17 03:53 Sodium 141 Potassium 3.9 Chloride 103 Carbon Dioxide 32 H BUN 11 Creatinine 0.65 Glucose 90 Calcium 8.9 - Attending Attestation I examined this patient and my medical decision-making was reviewed with the Resident Physician, Dr. Laguna. I agree with the documented findings, disposition and treatment plan as described except to the extent set forth below. Patient continues to report 4-5 loose bowel movements so far today. No associated abdominal pain. On exam she is no acute distress. Heart regular rate and rhythm S1-S2, abdomen soft nontender nondistended. Plan: C. difficile testing likely was a false positive and therefore vancomycin and Flagyl will be discontinued. So culture negative and GI panel is negative therefore it is extremely Unlikely that this is infection diarrhea. Hold all antibiotics. Discontinue contact precautions. Start Imodium. Monitor clinically. Follow with blood cell count trend.
[2017-01-26] MEDS ORDERED: Mag Hydrox/Al Hydrox/Simeth 30 ML UDC PO PRN (20:24)
[2017-01-26] MEDS: traZODone 50 MG TABLET PO SCH (20:30)
[2017-01-26] MEDS: *HR* OxyCODONE/APAP 5/325 TABLET PO PRN (20:31)
[2017-01-27] MEDS: *HR* Enoxaparin 40 MG/0.4 ML SYRINGE SQ SCH (05:55)
[2017-01-27] MEDS: *HR* OxyCODONE/APAP 5/325 TABLET PO PRN (06:07)
[2017-01-27 06:58] LABS: Basophils # 0.1 K/mcL (0.0-0.2); Basophils % 0.9 %; Eosinophils # 0.5 K/mcL (0.0-0.6); Eosinophils % 8.2 %; Hematocrit 33.8 % (35.3-44.9); Hemoglobin 10.7 g/dL (11.5-15.4); Immature Granulocytes % 0.9 % (0-4); Lymphocytes # 1.6 K/mcL (0.6-4.6); Lymphocytes % 27.8 %; Mean Corpuscular HGB Conc 31.7 g/dL (31.6-35.5); Mean Corpuscular Hemoglobin 28.3 pg (28.0-33.3); Mean Corpuscular Volume 89.4 fL (83.0-100.0); Mean Platelet Volume 9.8 fL (9.4-12.4); Monocytes # 0.6 K/mcL (0.0-1.3); Monocytes % 9.6 %; Platelet Count 182 K/mcL (140-400); Red Blood Count 3.78 M/mcL (3.82-4.97); Red Cell Distribution Width 14.2 % (11.5-14.5); Segmented Neutrophils % 52.6 %
[2017-01-27 07:10] LABS: BUN/Creatinine Ratio 18 (6-26); Blood Urea Nitrogen 12 mg/dL (7-20); Calcium 8.8 mg/dL (8.6-10.8); Carbon Dioxide 34 mEq/L (19-29); Chloride 102 mEq/L (98-109); Glucose 90 mg/dL (70-99); Magnesium 1.9 mg/dL (1.6-2.6); Osmolality,Calculated 293 (280-300); Sodium 142 mEq/L (136-145); eGFR For African Americans > 60 (> 60); eGFR For Non-African Americans > 60 (> 60)
[2017-01-27] MEDS: Cholestyramine 4 GM POWD.PACK PO SCH ×3 (07:50→15:07)
[2017-01-27] MEDS: Famotidine 20 MG TABLET PO SCH ×2 (07:51→16:00)
[2017-01-27] MEDS: Lactobacillus 1 EACH CAP.SPRINK PO SCH ×2 (07:51→22:21)
[2017-01-27] MEDS: Aspirin Enteric Coated 81 MG Tablet PO SCH (07:51)
[2017-01-27] MEDS: Cholecalciferol (D-3) 1,000 UNIT TABLET PO SCH (07:51)
[2017-01-27] MEDS: Multivit/Ca/Min/Fe/FA 1 TAB TABLET PO SCH (07:51)
[2017-01-27] MEDS: Diphenoxylate/Atropine 1 TAB TABLET PO SCH ×4 (10:19→22:21)
[2017-01-27] MEDS: *HR* OxyCODONE ER (12 HR) 20 MG TABLET PO SCH (11:22)
--- NOTE | 2017-01-27 12:36 | Internal Med Progress Note ---
<Sebas Laguna - Last Filed: 01/27/17 12:33> Date of Encounter: 01/27/17 Time of Encounter: 10:20 - Assessment and plan (1) Clostridium difficile infection Current Visit: Yes Status: Acute Assessment and plan: This was a false positive test initially. she has had 2 repeat test both of which are negative. Additionally no change on the antibiotics. Normal WBC after antibiotics stopped. Appreciate Oncologies input. Unlikely from faslodex. continue immodium. PRN Add scheduled lomotil. Consult GI. Possible DC after their evaluation. Stool electrolytes and fecal fat were DC'd by lab. I have reordered these. (2) Breast cancer, stage 4 Current Visit: Yes Status: Acute Assessment and plan: currently on palliative chemotherapy with faslodex. She will need to follow up with oncology as outpatient. (3) Cancer associated pain Current Visit: Yes Status: Acute Assessment and plan: Currently controlled. (4) Bone metastases Current Visit: Yes Status: Acute (5) Anemia Current Visit: Yes Status: Acute Assessment and plan: stable / mild trend down. normocytic New since admission. Likely a combination of lab draws and IV fluids. In the setting of metastatic Breast cancer. Normal B12 in the past check iron profile and folate. continue to monitor. (6) DVT prophylaxis Current Visit: Yes Status: Acute Assessment and plan: SQ lovenox. - Subjective Interval history: No major events overnight. the patient states that she as not had an improvement in her diarrhea. she states she nly had 1-2 tablets of the immodium yesterday. She still has pain in her spine and legs. However controlled at this time. She denies any dyspnea, cough, wheeze. she has no further complaints or concerns at this time. - Constitutional Vitals: Temp Pulse Resp BP Pulse Ox 98.1 F 101 17 101/88 95 01/27/17 11:01 01/27/17 11:01 01/27/17 11:01 01/27/17 11:01 01/27/17 11:01 General appearance: Present: cooperative, A&O X 3, pleasant, no acute distress, answers questions appropriately - Head Head exam: Present: atraumatic, normal inspection, normocephalic - Eye Eye exam: Present: PERRL, conjuntiva pink, sclera anicteric Pupils: Present: PERRL - ENT ENT exam: Present: mucous membranes moist - Neck Neck exam general surgery: Present: supple, trachea midline. Absent: lymphadenopathy - Respiratory Respiratory exam: Present: CTAB. Absent: accessory muscle use, rales, rhonchi, wheezes - Cardiovascular Cardiovascular exam: Present: RRR, +S1, +S2. Absent: diastolic murmur, gallop, rubs, systolic murmur - Extremities Exam Extremities exam: Present: warm, radial pulses palpable and symetrical. Absent : calf tenderness, cyanotic, pedal edema - Skin Skin exam: Present: dry, intact Internal Medicine: Result - Labs CBC & Chem 7: 01/27/17 06:06 01/27/17 06:06 Labs: Short CBC 01/27/17 Range/Units 06:06 WBC 5.7 (4.3-11.1) K/mcL Hgb 10.7 L (11.5-15.4) g/dL Hct 33.8 L (35.3-44.9) % Plt Count 182 (140-400) K/mcL Neutrophils # 3.0 (1.6-8.9) K/mcL BMP 01/27/17 06:06 Sodium 142 Potassium 4.0 Chloride 102 Carbon Dioxide 34 H BUN 12 Creatinine 0.65 Glucose 90 Calcium 8.8 Consult Discharge Plan - Plan Referrals: Mohini Franco DRIP PUMPER [Primary Care Provider] - <Brant Bowser - Last Filed: 01/27/17 16:48> Date of Encounter: 01/27/17 - Constitutional Vitals: Temp Pulse Resp BP Pulse Ox 98.6 F 100 18 100/60 95 01/27/17 14:44 01/27/17 14:44 01/27/17 14:44 01/27/17 14:44 01/27/17 14:44 Internal Medicine: Result - Labs CBC & Chem 7: 01/27/17 06:06 01/27/17 06:06 Labs: Short CBC 01/27/17 Range/Units 06:06 WBC 5.7 (4.3-11.1) K/mcL Hgb 10.7 L (11.5-15.4) g/dL Hct 33.8 L (35.3-44.9) % Plt Count 182 (140-400) K/mcL Neutrophils # 3.0 (1.6-8.9) K/mcL BMP 01/27/17 06:06 Sodium 142 Potassium 4.0 Chloride 102 Carbon Dioxide 34 H BUN 12 Creatinine 0.65 Glucose 90 Calcium 8.8 - Attending Attestation I examined this patient and my medical decision-making was reviewed with the Resident Physician, Dr. Laguna. I agree with the documented findings, disposition and treatment plan as described except to the extent set forth below. She reports 5 loose bowel movements today. No associated abdominal pain. C. difficile was negative. On exam she is in no acute distress heart is regular. Abdomen is soft nontender nondistended. Start Lomotil scheduled I instructed the patient to stop only if she has constipation. Start Imodium as needed. We will consult GI in the morning. C. difficile infection was ruled out during this admission, I will remove that diagnosis from this episode of care.
[2017-01-27] MEDS: traZODone 50 MG TABLET PO SCH (22:21)
[2017-01-28] MEDS: *HR* OxyCODONE ER (12 HR) 20 MG TABLET PO SCH ×3 (01:34→23:54)
[2017-01-28 06:16] LABS: Basophils % 0.7 %; Eosinophils # 0.5 K/mcL (0.0-0.6); Eosinophils % 8.3 %; Hematocrit 33.6 % (35.3-44.9); Hemoglobin 10.9 g/dL (11.5-15.4); Immature Granulocytes % 0.2 % (0-4); Lymphocytes # 1.7 K/mcL (0.6-4.6); Lymphocytes % 30.4 %; Mean Corpuscular HGB Conc 32.4 g/dL (31.6-35.5); Mean Corpuscular Hemoglobin 28.9 pg (28.0-33.3); Mean Corpuscular Volume 89.1 fL (83.0-100.0); Mean Platelet Volume 9.5 fL (9.4-12.4); Monocytes # 0.6 K/mcL (0.0-1.3); Monocytes % 10.5 %; Neutrophils # 2.8 K/mcL (1.6-8.9); Platelet Count 173 K/mcL (140-400); Red Blood Count 3.77 M/mcL (3.82-4.97); Red Cell Distribution Width 14.4 % (11.5-14.5); Segmented Neutrophils % 49.9 %
[2017-01-28 06:31] LABS: % Iron Saturation 18 % (15-50); BUN/Creatinine Ratio 21 (6-26); Blood Urea Nitrogen 14 mg/dL (7-20); Calcium 8.8 mg/dL (8.6-10.8); Carbon Dioxide 33 mEq/L (19-29); Chloride 102 mEq/L (98-109); Glucose 95 mg/dL (70-99); Iron 34 mcg/dL (50-170); Osmolality,Calculated 292 (280-300); Potassium 4.1 mEq/L (3.5-4.5); Sodium 141 mEq/L (136-145); Transferrin 137 mg/dL (180-382); eGFR For African Americans > 60 (> 60); eGFR For Non-African Americans > 60 (> 60)
[2017-01-28 06:52] LABS: Ferritin 549 ng/ml (5-204)
[2017-01-28] MEDS: Cholecalciferol (D-3) 1,000 UNIT TABLET PO SCH (08:05)
[2017-01-28] MEDS: Multivit/Ca/Min/Fe/FA 1 TAB TABLET PO SCH (08:06)
[2017-01-28] MEDS: Lactobacillus 1 EACH CAP.SPRINK PO SCH ×2 (08:07→20:25)
[2017-01-28] MEDS: Aspirin Enteric Coated 81 MG Tablet PO SCH (08:08)
[2017-01-28] MEDS: Diphenoxylate/Atropine 1 TAB TABLET PO SCH ×2 (08:08→12:07)
[2017-01-28] MEDS: Famotidine 20 MG TABLET PO SCH ×2 (08:09→16:05)
[2017-01-28] MEDS: *HR* Enoxaparin 40 MG/0.4 ML SYRINGE SQ SCH (08:09)
[2017-01-28] MEDS: *HR* OxyCODONE/APAP 5/325 TABLET PO PRN (08:16)
[2017-01-28] MEDS: Cholestyramine 4 GM POWD.PACK PO SCH (09:11)
--- NOTE | 2017-01-28 13:52 | Gastroenterology Consult Note ---
<Skyler Mccracken Aditya - Last Filed: 01/28/17 13:49> Date of Encounter: 01/28/17 Time of Encounter: 11:10 - Assessment and plan (1) Diarrhea Current Visit: Yes Status: Acute Assessment and plan: Cdiff positive on 01/16, since then she has had 2 negative Cdiff tests. GI panel negative on 01/23/17. Check fecal calprotectin. Plan for colonoscopy tomorrow. Clear liquid diet today, no red or purple. NPO at midnight. If unable tolerate NuLytely please use MiraLAX prep. If not clear by 6 AM, give 2 tap water enemas. Qualifiers: Diarrhea type: unspecified type Qualified Code(s): R19.7 - Diarrhea, unspecified (2) Breast cancer, stage 4 Current Visit: Yes Status: Acute Qualifiers: Laterality: left Qualified Code(s): C50.912 - Malignant neoplasm of unspecified site of left female breast - Time Spent With Patient Total time spent is greater than 50% in coordination of care (as documented) at patient's floor/unit and/or counseling patient: GI History of Present Illness - Data of Consult Patient: new to practice Consult date: 01/28/17 Requesting Physician: Brant Bowser MD - Consult Narrative Reason for consult: Persistent diarrhea History of present illness: Ms. Lemons is a 66 year old female with PMHx of breast cancer with mets to bone and lung, admitted for Cdiff. Patient states that PCP, Dr. Quigley, called and told patient she was positive for cdiff. She tested positive for Cdiff on . Patient unable to fill oral Vancomycin Rx at pharmacy due insurance not covering the cost so she presented to the ED to be treated. Diarrhea anytime she drinks or eats. No blood or melena. She was started on PO Vanco at 250 mg QID with no improvement, Vanco increased to 500 mg QID. Cholystyramine was started on 01/21. Flagyl was added on 01/22. She has since had 2 negative Cdiff tests. Antibiotics have been stopped, and Imodium and Lomotil were started. Procedures: None NSAIDs: ASA Anticoagulation: Plavix Past Med Surg Social Fam HX - Past Medical History Medical history: cancer, CVA, seizures, TIA Psychiatric history: anxiety, depression - Past Surgical History Surgical History: breast surgery, cancer surgery, other - Social History Smoking Status: Former smoker Smokeless Tobacco Status: No Alcohol use: none Drug use: none - Family History Mother Living Status: - Gastrointestinal Gastrointestinal: Present: as per HPI - Constitutional Constitutional: as per HPI - EENT Eyes: as per HPI Ears: Present: as per HPI Nose, mouth and throat: Present: as per HPI - Cardiovascular Cardiovascular ROS: Present: as per HPI - Respiratory Respiratory IM: Present: as per HPI - Genitourinary Genitourinary: Absent: change in color, Urinary frequency - Neurological ROS Neurological GI: Present: as per HPI - Hematologic/Lymphatic Hematologic/Lymphatic pediatric: Present: as per HPI - Musculoskeletal Musculoskeletal ROS GI: Present: as per HPI - Integumentary Integumentary GI: Present: as per HPI - Psychiatric ROS Psychiatric GI: Present: as per HPI - Endocrine Endocrine IM: Present: as per HPI - Constitutional Vitals: Temp Pulse Resp BP Pulse Ox 97.6 F 62 18 100/64 90 01/28/17 11:26 01/28/17 11:26 01/28/17 11:26 01/28/17 11:26 01/28/17 11:26 General appearance: Present: cooperative, A&O X 3, no acute distress, answers questions appropriately - Head Head exam: Present: atraumatic, normocephalic - Eye Eye exam: Present: normal appearance, sclera anicteric - ENT ENT exam: Present: mucous membranes moist - Neck Neck exam general surgery: Present: normal inspection, trachea midline - Respiratory Respiratory exam: Present: CTAB. Absent: rales, rhonchi - Cardiovascular Cardiovascular exam: Present: RRR, +S1, +S2 - GI/Abdominal GI/Abdominal exam: Present: soft, no peritoneal signs. Absent: distended, firm , guarding, tenderness - Rectal Rectal exam: Present: deferred - Extremities Exam Extremities exam: Present: warm - Neurological Exam Neurological exam: Present: no focal deficits - Psychiatric Psychiatric exam: Present: normal affect, normal mood - Skin Skin exam: Present: dry, intact, normal color, warm Results - Labs CBC & Chem 7: 01/28/17 05:55 01/28/17 05:55 Labs: Last Result Calcium 8.8 mg/dL (8.6-10.8) 01/28/17 05:55 Iron 34 mcg/dL (50-170) L 01/28/17 05:55 % Saturation 18 % (15-50) 01/28/17 05:55 Transferrin 137 mg/dL (180-382) L 01/28/17 05:55 Ferritin 549 ng/ml (5-204) H 01/28/17 05:55 Folate 11.5 ng/mL (7.0-31.4) 01/28/17 05:55 Entire Visit Hgb 10.9 g/dL (11.5-15.4) L 01/28/17 05:55 Hct 33.6 % (35.3-44.9) L 01/28/17 05:55 Ferritin 549 ng/ml (5-204) H 01/28/17 05:55 Total Bilirubin 0.2 mg/dL (0.2-1.2) 01/20/17 03:25 AST 14 Units/L (5-34) 01/20/17 03:25 ALT 10 Units/L (0-55) 01/20/17 03:25 Folate 11.5 ng/mL (7.0-31.4) 01/28/17 05:55 Consult Discharge Plan - Plan Referrals: Mohini Franco, STUDENT ASSISTANCE COUNSELOR [Primary Care Provider] - <Jovanny Ruvalcaba - Last Filed: 01/28/17 19:21> Date of Encounter: 01/28/17 Time of Encounter: 12:00 - Time Spent With Patient Total time spent is greater than 50% in coordination of care (as documented) at patient's floor/unit and/or counseling patient: GI History of Present Illness - Data of Consult Requesting Physician: Brant Bowser MD - Consult Narrative History of present illness: Ms. Lemons is a 66 year old female - Constitutional Vitals: Temp Pulse Resp BP Pulse Ox 98.2 F 87 18 110/74 96 01/28/17 16:52 01/28/17 16:52 01/28/17 16:52 01/28/17 16:52 01/28/17 16:52 Results - Labs CBC & Chem 7: 01/28/17 05:55 01/28/17 05:55 Labs: Last Result Calcium 8.8 mg/dL (8.6-10.8) 01/28/17 05:55 Iron 34 mcg/dL (50-170) L 01/28/17 05:55 % Saturation 18 % (15-50) 01/28/17 05:55 Transferrin 137 mg/dL (180-382) L 01/28/17 05:55 Ferritin 549 ng/ml (5-204) H 01/28/17 05:55 Folate 11.5 ng/mL (7.0-31.4) 01/28/17 05:55 Entire Visit Hgb 10.9 g/dL (11.5-15.4) L 01/28/17 05:55 Hct 33.6 % (35.3-44.9) L 01/28/17 05:55 Ferritin 549 ng/ml (5-204) H 01/28/17 05:55 Total Bilirubin 0.2 mg/dL (0.2-1.2) 01/20/17 03:25 AST 14 Units/L (5-34) 01/20/17 03:25 ALT 10 Units/L (0-55) 01/20/17 03:25 Folate 11.5 ng/mL (7.0-31.4) 01/28/17 05:55 - Attending Attestation I examined this patient and my medical decision-making was reviewed with the BEAUTY THERAPIST/PA/Advanced Practice Nurse/Resident Physician. I agree with the documented findings, disposition and treatment plan as described except to the extent set forth below.
--- NOTE | 2017-01-28 14:51 | Internal Med Progress Note ---
<Sebas Laguna - Last Filed: 01/28/17 14:48> Date of Encounter: 01/28/17 Time of Encounter: 08:35 - Assessment and plan (1) Clostridium difficile infection Current Visit: Yes Status: Acute Assessment and plan: This was a false positive test initially. she has had 2 repeat test both of which are negative. Additionally no change on the antibiotics. Normal WBC after antibiotics stopped. Appreciate Oncologies input. Unlikely from faslodex. discontinue immodium. PRN discontinue lomotil. GI consulted. Will have Colonoscopy at midnight. NPO at midnight. (2) Breast cancer, stage 4 Current Visit: Yes Status: Acute Assessment and plan: currently on palliative chemotherapy with faslodex. She will need to follow up with oncology as outpatient. Qualifiers: Laterality: left Qualified Code(s): C50.912 - Malignant neoplasm of unspecified site of left female breast (3) Cancer associated pain Current Visit: Yes Status: Acute Assessment and plan: Currently controlled. (4) Bone metastases Current Visit: Yes Status: Acute (5) Anemia Current Visit: Yes Status: Acute Assessment and plan: stable / mild trend down. normocytic New since admission. Likely a combination of lab draws and IV fluids. In the setting of metastatic Breast cancer. Normal B12 in the past ferritin and folate normal (6) DVT prophylaxis Current Visit: Yes Status: Acute Assessment and plan: SQ lovenox. - Subjective Interval history: No major events overnight. The patient states that she as not had an improvement in her diarrhea. She continues to have multiple bowel movemetns. She states she had 10-12 loose BMs yesterday. Denies blood in her stool and melena. She denies any dyspnea, cough, wheeze. she has no further complaints or concerns at this time. - Constitutional Vitals: Temp Pulse Resp BP Pulse Ox 97.6 F 62 18 100/64 90 01/28/17 11:26 01/28/17 11:26 01/28/17 11:26 01/28/17 11:26 01/28/17 11:26 General appearance: Present: cooperative, A&O X 3, pleasant, no acute distress, answers questions appropriately - Head Head exam: Present: atraumatic, normocephalic - Eye Eye exam: Present: PERRL, conjuntiva pink, sclera anicteric Pupils: Present: PERRL - Neck Neck exam general surgery: Present: supple, trachea midline. Absent: lymphadenopathy - Respiratory Respiratory exam: Present: CTAB. Absent: accessory muscle use, rales, rhonchi, wheezes - Cardiovascular Cardiovascular exam: Present: RRR, +S1, +S2. Absent: diastolic murmur, gallop, rubs, systolic murmur - GI/Abdominal GI/Abdominal exam: Present: normal bowel sounds, soft, no peritoneal signs. Absent: distended, tenderness - Extremities Exam Extremities exam: Present: warm, radial pulses palpable and symetrical. Absent : calf tenderness, cyanotic, pedal edema - Skin Skin exam: Present: dry, intact Internal Medicine: Result - Labs CBC & Chem 7: 01/28/17 05:55 01/28/17 05:55 Labs: Short CBC 01/28/17 Range/Units 05:55 WBC 5.5 (4.3-11.1) K/mcL Hgb 10.9 L (11.5-15.4) g/dL Hct 33.6 L (35.3-44.9) % Plt Count 173 (140-400) K/mcL Neutrophils # 2.8 (1.6-8.9) K/mcL BMP 01/28/17 05:55 Sodium 141 Potassium 4.1 Chloride 102 Carbon Dioxide 33 H BUN 14 Creatinine 0.66 Glucose 95 Calcium 8.8 Consult Discharge Plan - Plan Referrals: Mohini Franco, COMPOUNDING PHARMACY TECHNICIAN [Primary Care Provider] - <Brant Bowser - Last Filed: 01/28/17 18:47> Date of Encounter: 01/28/17 - Constitutional Vitals: Temp Pulse Resp BP Pulse Ox 98.2 F 87 18 110/74 96 01/28/17 16:52 01/28/17 16:52 01/28/17 16:52 01/28/17 16:52 01/28/17 16:52 Internal Medicine: Result - Labs CBC & Chem 7: 01/28/17 05:55 01/28/17 05:55 Labs: Short CBC 01/28/17 Range/Units 05:55 WBC 5.5 (4.3-11.1) K/mcL Hgb 10.9 L (11.5-15.4) g/dL Hct 33.6 L (35.3-44.9) % Plt Count 173 (140-400) K/mcL Neutrophils # 2.8 (1.6-8.9) K/mcL BMP 01/28/17 05:55 Sodium 141 Potassium 4.1 Chloride 102 Carbon Dioxide 33 H BUN 14 Creatinine 0.66 Glucose 95 Calcium 8.8 - Attending Attestation I examined this patient and my medical decision-making was reviewed with the Resident Physician, Dr. Laguna. I agree with the documented findings, disposition and treatment plan as described except to the extent set forth below. She reports 2 bowel movements today. Liquid. Denies abdominal pain. Her abdominal exam reveals soft nontender nondistended abdomen with normoactive bowel sounds. Heart is regular S1-S2. Plan: Consult GI for possible colonoscopy. Continue with Lomotil schedule and Imodium as needed. The patient's symptoms are likely related to noninfectious cause.
--- NOTE | 2017-01-28 16:44 | Oncology Inp Progress Note ---
Date of Encounter: 01/28/17 Time of Encounter: 16:42 (1) Anemia Current Visit: Yes Status: Acute Assessment and plan: Work up consistent with anemia of chronic inflammation, most likely from breast cancer Please transfuse for hemoglobin less than 8. Qualifiers: Other causes of anemia: chronic disease, neoplastic Qualified Code(s): D63.0 - Anemia in neoplastic disease (2) Diarrhea Current Visit: Yes Status: Acute Assessment and plan: Patient was C. difficile positive on 01/16 but since then has had 2 negative C. difficile tests. Diarrhea has been persistent despite being on PO vancomycin and Flagyl. She is being seen by GI and a colonoscopy is being planned. She is receiving Faslodex for her breast cancer risk which does not typically cause profuse diarrhea (causes some diarrhea in 19% of patients). Qualifiers: Diarrhea type: unspecified type Qualified Code(s): R19.7 - Diarrhea, unspecified (3) Breast cancer in female Current Visit: No Status: Chronic Assessment and plan: She is on faslodex. Treatment to be continued in the outpatient setting. Qualifiers: Laterality: unspecified laterality Qualified Code(s): C50.919 - Malignant neoplasm of unspecified site of unspecified female breast Oncology: Subj Interval history: Patient is doing well. She reported diarrhea was improving. She is however undergoing bowel prep for colonoscopy tomorrow. - Constitutional Vitals: Vital Signs Temp Pulse Resp BP Pulse Ox 01/28/17 11:26 97.6 F 62 18 100/64 90 01/28/17 06:55 97.4 F L 74 18 148/78 92 01/28/17 03:58 97.4 F L 66 18 115/72 92 01/27/17 20:18 97.5 F L 71 18 117/70 93 Intake and Output 01/28/17 01/28/17 01/28/17 07:59 15:59 23:59 Intake Total 0 / 0 800 / 800 Output Total 1000 / 1000 1000 / 1000 Balance -1000 / -1000 -200 / -200 Intake: Oral 0 / 0 800 / 800 Output: Urine 1000 / 1000 1000 / 1000 Other: Meal Lunch Percent of Meal Consumed 100% Stool Size Moderate Stool Consistency loose Stool Color Brown Blood Glucose* 86 General appearance: average body habitus, no no acute distress, no severe distress - Head Head exam: Present: normal inspection, normocephalic - Eye Eye exam: Present: EOMI, normal appearance - ENT ENT exam: Present: normal external ear exam - Respiratory Respiratory exam: Present: CTAB - Cardiovascular Cardiovascular exam: Present: RRR, +S1, +S2 - GI/Abdominal GI/Abdominal exam: Present: soft. Absent: rebound, rigid, tenderness - Extremities Exam Extremities exam: Absent: pedal edema Oncology: Obj Data - Labs CBC & Chem 7: 01/28/17 05:55 01/28/17 05:55 Labs: Laboratory Results - last 24 hr 01/24/17 01/27/17 01/27/17 15:20 16:44 20:14 WBC RBC Hgb Hct MCV MCH MCHC RDW Plt Count MPV Immature Gran % Seg Neutrophils % Lymphocytes % Monocytes % Eosinophils % Basophils % Neutrophils # Lymphocytes # Monocytes # Eosinophils # Basophils # Sodium Potassium Chloride Carbon Dioxide BUN Creatinine Est GFR ( Amer) Est GFR (Non-Af Amer) BUN/Creatinine Ratio Glucose POC Glucose 111 H 120 H Calculated Osmolality Calcium Iron % Saturation Transferrin Ferritin Folate Stool Neutral Fats NORMAL Stool Split Fat NORMAL Specimen Rejected 01/28/17 01/28/17 01/28/17 05:55 05:55 05:55 WBC 5.5 RBC 3.77 L Hgb 10.9 L Hct 33.6 L MCV 89.1 MCH 28.9 MCHC 32.4 RDW 14.4 Plt Count 173 MPV 9.5 Immature Gran % 0.2 Seg Neutrophils % 49.9 Lymphocytes % 30.4 Monocytes % 10.5 Eosinophils % 8.3 Basophils % 0.7 Neutrophils # 2.8 Lymphocytes # 1.7 Monocytes # 0.6 Eosinophils # 0.5 Basophils # 0.0 Sodium 141 Potassium 4.1 Chloride 102 Carbon Dioxide 33 H BUN 14 Creatinine 0.66 Est GFR ( Amer) > 60 Est GFR (Non-Af Amer) > 60 BUN/Creatinine Ratio 21 Glucose 95 POC Glucose Calculated Osmolality 292 Calcium 8.8 Iron 34 L % Saturation 18 Transferrin 137 L Ferritin 549 H Folate 11.5 Stool Neutral Fats Stool Split Fat Specimen Rejected 01/28/17 01/28/17 07:01 12:12 WBC RBC Hgb Hct MCV MCH MCHC RDW Plt Count MPV Immature Gran % Seg Neutrophils % Lymphocytes % Monocytes % Eosinophils % Basophils % Neutrophils # Lymphocytes # Monocytes # Eosinophils # Basophils # Sodium Potassium Chloride Carbon Dioxide BUN Creatinine Est GFR ( Amer) Est GFR (Non-Af Amer) BUN/Creatinine Ratio Glucose POC Glucose 86 Calculated Osmolality Calcium Iron % Saturation Transferrin Ferritin Folate Stool Neutral Fats Stool Split Fat Specimen Rejected Not Liquid Consult Discharge Plan - Plan Referrals: Mohini Franco, NEUROPSYCHOLOGY DIVISION CHIEF [Primary Care Provider] -
[2017-01-28] MEDS ORDERED: SODIUM CHLORIDE/NAHCO3/KCL/PEG 4,000 ML SOLN.RECON PO ONE (17:00)
[2017-01-28] MEDS: traZODone 50 MG TABLET PO SCH (20:26)
[2017-01-29 06:17] LABS: Basophils # 0.1 K/mcL (0.0-0.2); Eosinophils # 0.7 K/mcL (0.0-0.6); Eosinophils % 10.7 %; Hematocrit 36.1 % (35.3-44.9); Hemoglobin 11.3 g/dL (11.5-15.4); Immature Granulocytes % 0.3 % (0-4); Lymphocytes % 32.6 %; Mean Corpuscular HGB Conc 31.3 g/dL (31.6-35.5); Mean Corpuscular Volume 89.4 fL (83.0-100.0); Mean Platelet Volume 9.8 fL (9.4-12.4); Monocytes # 0.6 K/mcL (0.0-1.3); Monocytes % 9.6 %; Neutrophils # 2.8 K/mcL (1.6-8.9); Platelet Count 190 K/mcL (140-400); Red Blood Count 4.04 M/mcL (3.82-4.97); Red Cell Distribution Width 14.4 % (11.5-14.5); Segmented Neutrophils % 45.8 %
[2017-01-29 06:31] LABS: BUN/Creatinine Ratio 12 (6-26); Blood Urea Nitrogen 8 mg/dL (7-20); Carbon Dioxide 33 mEq/L (19-29); Chloride 103 mEq/L (98-109); Glucose 86 mg/dL (70-99); Magnesium 2.2 mg/dL (1.6-2.6); Osmolality,Calculated 292 (280-300); Sodium 142 mEq/L (136-145); eGFR For African Americans > 60 (> 60); eGFR For Non-African Americans > 60 (> 60)
[2017-01-29] MEDS: *HR* Enoxaparin 40 MG/0.4 ML SYRINGE SQ SCH (06:57)
[2017-01-29] MEDS: Famotidine 20 MG TABLET PO SCH ×2 (06:57→16:48)
[2017-01-29] MEDS: Lactobacillus 1 EACH CAP.SPRINK PO SCH ×2 (08:15→20:55)
[2017-01-29] MEDS: Cholecalciferol (D-3) 1,000 UNIT TABLET PO SCH (08:15)
[2017-01-29] MEDS: Multivit/Ca/Min/Fe/FA 1 TAB TABLET PO SCH (08:16)
[2017-01-29] MEDS: Aspirin Enteric Coated 81 MG Tablet PO SCH (08:16)
[2017-01-29] MEDS: *HR* OxyCODONE ER (12 HR) 20 MG TABLET PO SCH (11:27)
[2017-01-29] MEDS ORDERED: Ondansetron 4 MG/2 ML VIAL IVP ONE (12:29)
[2017-01-29] MEDS ORDERED: *HR* Propofol 200 MG/20 ML VIAL IVP ONE (12:29)
--- NOTE | 2017-01-29 13:42 | Anesthesia Evaluation PreOp ---
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: Seizures (not being medically treated), CVA (residual right side deficit), TIA Other Medical History: GERD, Other (metastatic breast CA S/P chemo/XRT) Anesthesia History: Past Anesthesia Alcohol Use: none Drug use: none Medications and Allergies Multivitamin/Ferrous Sulfate [One-Daily Wgvkw-[id number]-Kwqd Tab] 18 mg PO DAILY #0 09/21/15 [History] Aspirin [Adult Low Dose Aspirin EC] 81 mg PO DAILY 10/10/15 [History] Carvedilol [Coreg] 25 mg PO BID 10/10/15 [History] Sertraline [Zoloft] 150 mg PO DAILY 10/10/15 [History] Trazodone HCl [TraZODone] 50 mg PO HS 10/10/15 [History] Ranitidine HCl [Zantac] 150 mg PO BID 01/19/16 [History] Albuterol Sulfate [Albuterol Inhaler] 2 puff IH Q4H PRN 04/30/16 [History] Calcium Carbonate/Vitamin D3 [Calcium 600 + Vit D Tablet] 2 tab PO BID #60 tablet 11/09/16 [Rx] Atorvastatin Calcium [Lipitor] 20 mg PO QPM 01/18/17 [History] Clopidogrel [Plavix] 75 mg PO DAILY 01/18/17 [History] Fluticasone Propionate Nasal [Flonase] 100 mcg NS DAILY 01/18/17 [History] LORazepam [Ativan] 0.5 mg PO TID PRN 01/18/17 [History] Allergies iodine Allergy (Unknown, Verified 01/17/17 23:09) Difficulty Breathing Iodinated Contrast Media - Oral and [Iodinated Contrast Media - IV Dye] Allergy (Verified 01/17/17 23:09) Difficulty Breathing Opioids - Morphine Analogues Adverse Reaction (Unknown, Verified 01/17/17 23:09) Itching nausea watermelon Allergy (Unknown, Uncoded 04/26/16 12:51) Itching - Meds/Allergy Pre-op Review Medications Reviewed: Yes Allergies Reviewed: Yes Beta Blockers on Current Med List: Yes If Beta Blockers taken, Date/Time (Last Dose taken): 01/29/2017 at 0815 Anesthesia Results - Labs 01/29/17 06:05 01/29/17 06:05 - Imaging EKG: report reviewed (01/17/2017 SR) Additional studies: 09/21/2015 Echo technically sub-optimal due to body habitus and scar tissue on chest LVEF 45-50% mild LV ystolic dysfunction mild LV diastolic dysfunction no significant valvular dysfunction 08/18/2014 Echo Impressions: Technically sub-optimal due to body habitus. The LV is not well measured. Grossly, LV size and wall thickness appear normal. Normal systolic function, 50-55%. Normal right ventricular structure and function. Mild aortic regurgitation. Mild mitral regurgitation. Estimated RVSP is 28 mmHg. No pulmonary hypertension. Anesthesia Exam Vital Signs/O2 Sat, Most Current Temp Pulse Resp BP Pulse Ox 98.5 F 67 16 127/61 93 01/29/17 11:52 01/29/17 11:52 01/29/17 11:52 01/29/17 11:52 01/29/17 11:52 Height: 5'1''/1.55 m Weight: 158 lbs/72 kg NPO (# of Hours): 8 Pain Scale: 7 Pain Scale Used: Numeric (1 - 10) - HEENT Pupil (Motor): EOMI Mallampati: III Teeth: Poor dentition Oral Opening: Greater than 3 - LIVESTOCK SALES REPRESENTATIVE LOC: Oriented LIVESTOCK SALES REPRESENTATIVE Motor: Normal Face, Deficit RUE, Deficit LUE, Deficit RLE, Deficit LLE LIVESTOCK SALES REPRESENTATIVE Sensory: Normal: LUE, LLE, Face, Deficit: RUE, RLE - Cardiac Rhythm: Regular Murmur: None - Pulmonary Breath Sounds: bilateral Clear Respiratory Effort: Symmetrical Anesthesia Assess/Plan ASA Score: 4 Modified Savi Scale for Level of Consciousness: Cooperative, oriented, and tranquil Anesthetic Plan: MAC Monitoring Plan: Standard Monitors
[2017-01-29] MEDS ORDERED: Ondansetron 4 MG/2 ML VIAL ONE (15:35)
[2017-01-29] MEDS ORDERED: *HR* EPINEPHrine 1 MG/10 ML SYRINGE ONE (15:43)
--- NOTE | 2017-01-29 16:47 | Discharge Summary ---
Date of Encounter: 01/29/17 Time of Encounter: 16:43 - Discharge Diagnosis (1) Clostridium difficile infection Priority: Primary Status: Acute (2) Breast cancer, stage 4 Priority: Secondary Status: Acute Qualifiers: Laterality: left Qualified Code(s): C50.912 - Malignant neoplasm of unspecified site of left female breast (3) Cancer associated pain Priority: Secondary Status: Acute (4) Bone metastases Priority: Secondary Status: Acute (5) Anemia Priority: Secondary Status: Acute Qualifiers: Other causes of anemia: chronic disease, neoplastic Qualified Code(s): D63.0 - Anemia in neoplastic disease (6) DVT prophylaxis Priority: Secondary Status: Acute - Discharge Medications Home Medications: Multivitamin/Ferrous Sulfate [One-Daily Sglru-Cny-Zvlz Tab] 18 mg PO DAILY #0 09/21/15 [History] Aspirin [Adult Low Dose Aspirin EC] 81 mg PO DAILY 10/10/15 [History] Carvedilol [Coreg] 25 mg PO BID 10/10/15 [History] Sertraline [Zoloft] 150 mg PO DAILY 10/10/15 [History] Trazodone HCl [TraZODone] 50 mg PO HS 10/10/15 [History] Ranitidine HCl [Zantac] 150 mg PO BID 01/19/16 [History] Albuterol Sulfate [Albuterol Inhaler] 2 puff IH Q4H PRN 04/30/16 [History] Calcium Carbonate/Vitamin D3 [Calcium 600 + Vit D Tablet] 2 tab PO BID #60 tablet 11/09/16 [Rx] Atorvastatin Calcium [Lipitor] 20 mg PO QPM 01/18/17 [History] Clopidogrel [Plavix] 75 mg PO DAILY 01/18/17 [History] Fluticasone Propionate Nasal [Flonase] 100 mcg NS DAILY 01/18/17 [History] LORazepam [Ativan] 0.5 mg PO TID PRN 01/18/17 [History] Allergies/Adverse Reactions: Allergies iodine Allergy (Unknown, Verified 01/17/17 23:09) Difficulty Breathing Iodinated Contrast Media - Oral and [Iodinated Contrast Media - IV Dye] Allergy (Verified 01/17/17 23:09) Difficulty Breathing Opioids - Morphine Analogues Adverse Reaction (Unknown, Verified 01/17/17 23:09) Itching nausea watermelon Allergy (Unknown, Uncoded 04/26/16 12:51) Itching Date of admission: 01/18/17 04:40 Primary care physician: Mohini Franco CNP Consults: 01/18/17 12:54 Consult to Physical Therapy [CONS] Routine Comment: Evaluate, develop and implement POC OT [Consult to Occupational Therapy] [CONS] Routine Comment: Evaluate, develop and implement POC 01/18/17 15:41 Consult to Invasive Line Access Team [CONS] Routine Reason for Consult: limited access Line Type: EPIV 01/19/17 10:42 Consult to Occupational Therapy [CONS] Stat Comment: Evaluate, develop and implement POC Consult to Physical Therapy [CONS] Stat Comment: Evaluate, develop and implement POC 01/24/17 09:38 Consult to Oncology [CONS] Routine Consulting Provider: [facility] Reason for Consult: Diarrhea. related to Chemotherapy? Call Completed: No 01/27/17 09:36 Consult to Gastroenterology [CONS] Routine Consulting Provider: [facility] [place] Reason for Consult: persistant diarrhea. Call Completed: No Discharging clinician: Sebas Laguna Anticipated date of discharge: 01/29/17 - Patient Status Condition: Fair - Discharge Instructions Follow Up With: Mohini Franco CNP [Primary Care Provider] - Hospital course: Ms. Lemons is a 67 year old female - Time Spent with Patient Total time spent providing and/or coordinating discharge services: - Constitutional Vitals: Temp Pulse Resp BP Pulse Ox 97.7 F 64 18 152/79 93 01/29/17 16:00 01/29/17 16:00 01/29/17 16:00 01/29/17 16:00 01/29/17 16:00 General appearance: Present: cooperative, A&O X 3, pleasant, no acute distress, answers questions appropriately
--- NOTE | 2017-01-29 17:42 | Internal Med Progress Note ---
<Sebas Laguna - Last Filed: 01/29/17 17:37> Date of Encounter: 01/29/17 Time of Encounter: 17:37 - Assessment and plan (1) Clostridium difficile infection Current Visit: Yes Status: Acute Assessment and plan: This was a false positive test initially. she has had 2 repeat test both of which are negative. Additionally no change on the antibiotics. Normal WBC after antibiotics stopped. Appreciate Oncologies input. Unlikely from faslodex. Patient had large polyp removed and had clips placed. We will observe her here overnight As she has just had anesthesia and is having some mild hypoxemia. (2) Breast cancer, stage 4 Current Visit: Yes Status: Acute Assessment and plan: currently on palliative chemotherapy with faslodex. She will need to follow up with oncology as outpatient. Qualifiers: Laterality: left Qualified Code(s): C50.912 - Malignant neoplasm of unspecified site of left female breast (3) Cancer associated pain Current Visit: Yes Status: Acute Assessment and plan: Currently controlled. (4) Bone metastases Current Visit: Yes Status: Acute (5) Anemia Current Visit: Yes Status: Acute Assessment and plan: stable / mild trend down. normocytic New since admission. Likely a combination of lab draws and IV fluids. In the setting of metastatic Breast cancer. Normal B12 in the past ferritin and folate normal Qualifiers: Other causes of anemia: chronic disease, neoplastic Qualified Code(s): D63.0 - Anemia in neoplastic disease (6) DVT prophylaxis Current Visit: Yes Status: Acute Assessment and plan: SQ lovenox. - Subjective Interval history: Patient has just come back from a colonoscopy. She is somewhat somnolent but answers questions appropriately. She admits to diffuse mild abdominal pain. This is unchaged since yesterday. She states that she had multiple bowel movements this AM however she did have a bowel prep. She denies any other complains or concerns at this time. - Constitutional Vitals: Temp Pulse Resp BP Pulse Ox 98.0 F 74 18 164/59 94 01/29/17 16:45 01/29/17 16:45 01/29/17 16:45 01/29/17 16:45 01/29/17 16:45 General appearance: Present: cooperative, A&O X 3, pleasant, no acute distress, answers questions appropriately Exam: mildly somnolent. - Head Head exam: Present: atraumatic, normocephalic - Eye Eye exam: Present: PERRL, conjuntiva pink, sclera anicteric Pupils: Present: PERRL - Neck Neck exam general surgery: Present: supple, trachea midline. Absent: lymphadenopathy - Respiratory Respiratory exam: Present: CTAB. Absent: accessory muscle use, rales, rhonchi, wheezes - Cardiovascular Cardiovascular exam: Present: RRR, +S1, +S2. Absent: diastolic murmur, gallop, rubs, systolic murmur - GI/Abdominal GI/Abdominal exam: Present: normal bowel sounds, soft, no peritoneal signs. Absent: distended, tenderness - Extremities Exam Extremities exam: Present: warm, radial pulses palpable and symetrical. Absent : calf tenderness, cyanotic, pedal edema - Skin Skin exam: Present: dry, intact Internal Medicine: Result - Labs CBC & Chem 7: 01/29/17 06:05 01/29/17 06:05 Labs: Short CBC 01/29/17 Range/Units 06:05 WBC 6.1 (4.3-11.1) K/mcL Hgb 11.3 L (11.5-15.4) g/dL Hct 36.1 (35.3-44.9) % Plt Count 190 (140-400) K/mcL Neutrophils # 2.8 (1.6-8.9) K/mcL BMP 01/29/17 06:05 Sodium 142 Potassium 4.0 Chloride 103 Carbon Dioxide 33 H BUN 8 Creatinine 0.65 Glucose 86 Calcium 9.0 Consult Discharge Plan - Plan Referrals: Mohini Franco, [employer] OPERATOR [Primary Care Provider] - <Brant Bowser - Last Filed: 01/29/17 18:22> Date of Encounter: 01/29/17 - Constitutional Vitals: Temp Pulse Resp BP Pulse Ox 98.0 F 74 18 164/59 94 01/29/17 16:45 01/29/17 16:45 01/29/17 16:45 01/29/17 16:45 01/29/17 16:45 Internal Medicine: Result - Labs CBC & Chem 7: 01/29/17 06:05 01/29/17 06:05 Labs: Short CBC 01/29/17 Range/Units 06:05 WBC 6.1 (4.3-11.1) K/mcL Hgb 11.3 L (11.5-15.4) g/dL Hct 36.1 (35.3-44.9) % Plt Count 190 (140-400) K/mcL Neutrophils # 2.8 (1.6-8.9) K/mcL BMP 01/29/17 06:05 Sodium 142 Potassium 4.0 Chloride 103 Carbon Dioxide 33 H BUN 8 Creatinine 0.65 Glucose 86 Calcium 9.0 - Attending Attestation I examined this patient and my medical decision-making was reviewed with the Resident Physician. I agree with the documented findings, disposition and treatment plan as described except to the extent set forth below. Pt examined twice today. After colonoscopy she appears sedated, awake. O2 saturation drops as low as 82% on RA. She was not previously on O2. Will start O2 by MI and monitor.
--- NOTE | 2017-01-29 18:02 | Oncology Inp Progress Note ---
Date of Encounter: 01/29/17 Time of Encounter: 18:00 (1) Anemia Current Visit: Yes Status: Acute Assessment and plan: Work up consistent with anemia of chronic inflammation, most likely from breast cancer Please transfuse for hemoglobin less than 8. Qualifiers: Other causes of anemia: chronic disease, neoplastic Qualified Code(s): D63.0 - Anemia in neoplastic disease (2) Diarrhea Current Visit: Yes Status: Acute Assessment and plan: Patient was C. difficile positive on 01/16 but since then has had 2 negative C. difficile tests. Diarrhea has been persistent despite being on PO vancomycin and Flagyl. She is being seen by GI and a colonoscopy was obtained today and results are pending. She is receiving Faslodex for her breast cancer risk which does not typically cause profuse diarrhea (causes some diarrhea in 19% of patients) and is highly unlikely to be the cause of her diarrhea. Qualifiers: Diarrhea type: unspecified type Qualified Code(s): R19.7 - Diarrhea, unspecified (3) Breast cancer in female Current Visit: No Status: Chronic Assessment and plan: She is on faslodex. Treatment to be continued in the outpatient setting. Qualifiers: Laterality: unspecified laterality Qualified Code(s): C50.919 - Malignant neoplasm of unspecified site of unspecified female breast Oncology: Subj Interval history: Patient is doing well. She had just returned from colonoscopy and is eager to eat. There were no acute events overnight. - Constitutional Vitals: Vital Signs Temp Pulse Resp BP Pulse Ox 01/29/17 16:45 98.0 F 74 18 164/59 94 01/29/17 16:00 97.7 F 64 18 152/79 93 01/29/17 14:40 98.5 F 72 16 156/70 94 01/29/17 11:52 98.5 F 67 16 127/61 93 01/29/17 04:33 98.6 F 71 16 103/49 94 01/29/17 00:49 98.5 F 70 14 111/85 94 01/28/17 19:54 98.2 F 59 14 147/79 98 Intake and Output 01/29/17 01/29/17 01/29/17 07:59 15:59 23:59 Intake Total 0 / 0 Output Total 1800 / 1800 Balance 0 / 0 -1800 / -1800 Intake: Oral 0 / 0 Output: Urine 1800 / 1800 Other: Meal NPO # Voids 1 1 # Bowel Movements 1 Weight 72 kg Blood Glucose* 94 Patient Weight 01/29/17 23:59 Weight 72 kg General appearance: average body habitus, no no acute distress, no severe distress - Head Head exam: Present: normal inspection, normocephalic - Eye Eye exam: Present: EOMI, normal appearance - Respiratory Respiratory exam: Present: CTAB. Absent: wheezes, tachypnea - Cardiovascular Cardiovascular exam: Present: RRR, +S1, +S2 - GI/Abdominal GI/Abdominal exam: Present: soft. Absent: organomegaly, pulsatile mass - Extremities Exam Extremities exam: Present: normal inspection. Absent: pedal edema - Neurological Exam Neurological exam: Present: alert, oriented X3 Oncology: Obj Data - Labs CBC & Chem 7: 01/29/17 06:05 01/29/17 06:05 Labs: Laboratory Results - last 24 hr 01/29/17 01/29/17 01/29/17 05:50 06:05 06:05 WBC 6.1 RBC 4.04 Hgb 11.3 L Hct 36.1 MCV 89.4 MCH 28.0 MCHC 31.3 L RDW 14.4 Plt Count 190 MPV 9.8 Immature Gran % 0.3 Seg Neutrophils % 45.8 Lymphocytes % 32.6 Monocytes % 9.6 Eosinophils % 10.7 Basophils % 1.0 Neutrophils # 2.8 Lymphocytes # 2.0 Monocytes # 0.6 Eosinophils # 0.7 H Basophils # 0.1 Sodium 142 Potassium 4.0 Chloride 103 Carbon Dioxide 33 H BUN 8 Creatinine 0.65 Est GFR ( Amer) > 60 Est GFR (Non-Af Amer) > 60 BUN/Creatinine Ratio 12 Glucose 86 POC Glucose 94 H Calculated Osmolality 292 Calcium 9.0 Magnesium 2.2 Consult Discharge Plan - Plan Referrals: Mohini Franco, [employer]/SUPERINTENDANT [Primary Care Provider] -
[2017-01-29] MEDS: traZODone 50 MG TABLET PO SCH (20:55)
[2017-01-30] MEDS: *HR* OxyCODONE ER (12 HR) 20 MG TABLET PO SCH ×2 (00:05→12:20)
[2017-01-30] MEDS: *HR* OxyCODONE/APAP 5/325 TABLET PO PRN (04:10)
[2017-01-30 06:02] LABS: BUN/Creatinine Ratio 14 (6-26); Blood Urea Nitrogen 9 mg/dL (7-20); Calcium 8.8 mg/dL (8.6-10.8); Carbon Dioxide 33 mEq/L (19-29); Chloride 104 mEq/L (98-109); Glucose 91 mg/dL (70-99); Magnesium 2.1 mg/dL (1.6-2.6); Osmolality,Calculated 290 (280-300); Potassium 3.7 mEq/L (3.5-4.5); Sodium 141 mEq/L (136-145); eGFR For African Americans > 60 (> 60); eGFR For Non-African Americans > 60 (> 60)
[2017-01-30] MEDS: *HR* Enoxaparin 40 MG/0.4 ML SYRINGE SQ SCH (06:13)
[2017-01-30] MEDS: Famotidine 20 MG TABLET PO SCH (06:14)
[2017-01-30] MEDS: Lactobacillus 1 EACH CAP.SPRINK PO SCH (07:59)
[2017-01-30] MEDS: Multivit/Ca/Min/Fe/FA 1 TAB TABLET PO SCH (08:00)
[2017-01-30] MEDS: Aspirin Enteric Coated 81 MG Tablet PO SCH (08:00)
[2017-01-30] MEDS: Cholecalciferol (D-3) 1,000 UNIT TABLET PO SCH (08:00)
--- NOTE | 2017-01-30 11:21 | Discharge Summary ---
Addendum entered and electronically signed by Sebas Laguna DO 14:42: Med reconciliation below is accurate except for plavix. She had 3 years of plavix following a stent. This was discontinued by her PCP. She will resume her daily 81 mg aspirin. Original Note: <Sebas Laguna - Last Filed: 01/30/17 11:34> Date of Encounter: 01/30/17 Time of Encounter: 11:10 - Discharge Diagnosis (1) Clostridium difficile infection Priority: Primary Status: Acute Comments: False positive. She had persistant diarrhea. had colonoscopy. Will need follow up with GI. (2) Breast cancer, stage 4 Priority: Secondary Status: Acute Qualifiers: Laterality: left Qualified Code(s): C50.912 - Malignant neoplasm of unspecified site of left female breast (3) Cancer associated pain Priority: Secondary Status: Acute (4) Bone metastases Priority: Secondary Status: Acute (5) Anemia Priority: Secondary Status: Acute Qualifiers: Other causes of anemia: chronic disease, neoplastic Qualified Code(s): D63.0 - Anemia in neoplastic disease (6) DVT prophylaxis Priority: Secondary Status: Acute - Discharge Medications Prescriptions: OxyCODONE/APAP 5/325 [Percocet 5/325 MG] 1 each PO Q8HR PRN #42 tablet PRN Reason: Pain Diphenoxylate/Atropine [Lomotil 2.5 mg/0.025 mg] 1 each PO QID PRN 30 Days PRN Reason: Diarrhea Lactobacillus [Culturelle] 1 each PO BID 30 Days OxyCODONE ER (12 HR) [OxyCONTIN] 20 mg PO Q12H #24 tab.er.12h Home Medications: Multivitamin/Ferrous Sulfate [One-Daily Excuw-Aib-Shxt Tab] 18 mg PO DAILY #0 09/21/15 [History] Carvedilol [Coreg] 25 mg PO BID 10/10/15 [History] Sertraline [Zoloft] 150 mg PO DAILY 10/10/15 [History] Trazodone HCl [TraZODone] 50 mg PO HS 10/10/15 [History] Ranitidine HCl [Zantac] 150 mg PO BID 01/19/16 [History] Albuterol Sulfate [Albuterol Inhaler] 2 puff IH Q4H PRN 04/30/16 [History] Calcium Carbonate/Vitamin D3 [Calcium 600 + Vit D Tablet] 2 tab PO BID #60 tablet 11/09/16 [Rx] Atorvastatin Calcium [Lipitor] 20 mg PO QPM 01/18/17 [History] Clopidogrel [Plavix] 75 mg PO DAILY 01/18/17 [History] Fluticasone Propionate Nasal [Flonase] 100 mcg NS DAILY 01/18/17 [History] LORazepam [Ativan] 0.5 mg PO TID PRN 01/18/17 [History] Diphenoxylate/Atropine [Lomotil 2.5 mg/0.025 mg] 1 each PO QID PRN 30 Days 01/30 [Rx] Lactobacillus [Culturelle] 1 each PO BID 30 Days 01/30/17 [Rx] OxyCODONE ER (12 HR) [OxyCONTIN] 20 mg PO Q12H #24 tab.er.12h 01/30/17 [Rx] OxyCODONE/APAP 5/325 [Percocet 5/325 MG] 1 each PO Q8HR PRN #42 tablet 01/30/17 [Rx] Allergies/Adverse Reactions: Allergies iodine Allergy (Unknown, Verified 01/17/17 23:09) Difficulty Breathing Iodinated Contrast Media - Oral and [Iodinated Contrast Media - IV Dye] Allergy (Verified 01/17/17 23:09) Difficulty Breathing Opioids - Morphine Analogues Adverse Reaction (Unknown, Verified 01/17/17 23:09) Itching nausea watermelon Allergy (Unknown, Uncoded 04/26/16 12:51) Itching Date of admission: 01/18/17 04:40 Primary care physician: Mohini Franco CNP Consults: 01/18/17 12:54 Consult to Physical Therapy [CONS] Routine Comment: Evaluate, develop and implement POC OT [Consult to Occupational Therapy] [CONS] Routine Comment: Evaluate, develop and implement POC 01/18/17 15:41 Consult to Invasive Line Access Team [CONS] Routine Reason for Consult: limited access Line Type: EPIV 01/19/17 10:42 Consult to Occupational Therapy [CONS] Stat Comment: Evaluate, develop and implement POC Consult to Physical Therapy [CONS] Stat Comment: Evaluate, develop and implement POC 01/24/17 09:38 Consult to Oncology [CONS] Routine Consulting Provider: [facility] Reason for Consult: Diarrhea. related to Chemotherapy? Call Completed: No 01/27/17 09:36 Consult to Gastroenterology [CONS] Routine Consulting Provider: [facility] [place] Reason for Consult: persistant diarrhea. Call Completed: No Discharging clinician: Sebas Laguna Anticipated date of discharge: 01/30/17 - Patient Status Disposition: Home Health Service Condition: Fair Functional capacity at discharge: independent ambulation Overall status at discharge: patient is progressing back to baseline - Discharge Instructions Follow Up With: Mohini Franco CNP [Primary Care Provider] - 02/06/17 1:25 pm Jovanny Ruvalcaba MD [Partnered Physician] - 02/28/17 3:50 pm - Diet and Activity Activity: increase activity as tolerated Diet: advance to your usual diet Hospital course: Ms. Lemons is a 67 year old female who was admnitted with C diff. However she was treated with both PO Vancomycin and Flagyl. she had no improvement in her symptoms. She was non toxic appearing and had a normal White blood cell count. we repeated a Cdiff twice. these were both negative. Infection panel was negative as well. We discussed with oncology who stated that it was unlikely that the faslodex could be the cause of her symptoms. We did consult GI who would perform a colonoscopy. She had a polypectomy and had 3 clips placed. Today she is stable clinically, on room air, ambulating and tolerating a diet. We will discharger her today to followup with GI and her PCP. - Time Spent with Patient Total time spent providing and/or coordinating discharge services: Greater than 30 minutes (I spent approximately 35 minutes dsicharging this patient.) - Constitutional Vitals: Temp Pulse Resp BP Pulse Ox 97.5 F L 64 12 108/64 94 01/30/17 06:52 01/30/17 06:52 01/30/17 06:52 01/30/17 06:52 01/30/17 06:52 General appearance: Present: cooperative, A&O X 3, pleasant, no acute distress, answers questions appropriately - Head Head exam: Present: atraumatic, normocephalic - Eye Eye exam: Present: PERRL, conjuntiva pink, sclera anicteric Pupils: Present: PERRL - Neck Neck exam general surgery: Present: supple, trachea midline. Absent: lymphadenopathy - Respiratory Respiratory exam: Present: CTAB. Absent: accessory muscle use, rales, rhonchi, wheezes - Cardiovascular Cardiovascular exam: Present: RRR, +S1, +S2. Absent: diastolic murmur, gallop, rubs, systolic murmur - GI/Abdominal GI/Abdominal exam: Present: normal bowel sounds, soft, no peritoneal signs. Absent: distended, tenderness - Extremities Exam Extremities exam: Present: warm, radial pulses palpable and symetrical. Absent : calf tenderness, cyanotic, pedal edema - Skin Skin exam: Present: dry, intact <Ducu,Brant - Last Filed: 01/30/17 19:07> Date of Encounter: 01/30/17 Date of admission: 01/18/17 04:40 Primary care physician: Mohini Franco CNP Consults: 01/18/17 12:54 Consult to Physical Therapy [CONS] Routine Comment: Evaluate, develop and implement POC OT [Consult to Occupational Therapy] [CONS] Routine Comment: Evaluate, develop and implement POC 01/18/17 15:41 Consult to Invasive Line Access Team [CONS] Routine Reason for Consult: limited access Line Type: EPIV 01/19/17 10:42 Consult to Occupational Therapy [CONS] Stat Comment: Evaluate, develop and implement POC Consult to Physical Therapy [CONS] Stat Comment: Evaluate, develop and implement POC 01/24/17 09:38 Consult to Oncology [CONS] Routine Consulting Provider: [facility] Reason for Consult: Diarrhea. related to Chemotherapy? Call Completed: No 01/27/17 09:36 Consult to Gastroenterology [CONS] Routine Consulting Provider: [facility] [place] Reason for Consult: persistant diarrhea. Call Completed: No - Patient Status Functional capacity at discharge: independent ambulation Overall status at discharge: patient is progressing back to baseline Hospital course: Ms. Lemons is a 67 year old female - Time Spent with Patient Total time spent providing and/or coordinating discharge services: - Constitutional Vitals: Temp Pulse Resp BP Pulse Ox 98.9 F 67 14 127/73 93 01/30/17 11:20 01/30/17 11:20 01/30/17 11:20 01/30/17 11:20 01/30/17 11:20 - Attending Attestation I examined this patient and my medical decision-making was reviewed with the Resident Physician, Dr Laguna. I agree with the documented findings, disposition and treatment plan as described except to the extent set forth below. She was admitted for evaluation and treatment of diarrhea. Initial C. difficile was positive however follow-up testing revealed negative C. difficile tests twice and therefore it is believed that initial test was falsely positive. She continued to have diarrhea. GI panel was negative and found no evidence of infectious etiology. She had a colonoscopy with polyp removed and pathology pending. Her diarrhea has resolved with Lomotil. She was hypoxemic last night after colonoscopy and therefore was kept 1 more night. Her oxygen saturation on room air is within normal limits and she is back to baseline. On exam she is in no acute distress awake alert oriented. Lungs are clear to auscultation bilaterally. Abdomen is soft nontender nondistended with normoactive bowel sounds.
--- NOTE | 2017-01-30 12:41 | Oncology Inp Progress Note ---
Date of Encounter: 01/30/17 Time of Encounter: 10:14 (1) Anemia Status: Acute Assessment and plan: Work up consistent with anemia of chronic inflammation, most likely from breast cancer Please transfuse for hemoglobin less than 8. Qualifiers: Other causes of anemia: chronic disease, neoplastic Qualified Code(s): D63.0 - Anemia in neoplastic disease (2) Diarrhea Status: Acute Assessment and plan: Patient was C. difficile positive on 01/16 but since then has had 2 negative C. difficile tests. Diarrhea was persistent despite being on PO vancomycin and Flagyl and so she underwent colonoscopy yesterday which was unrevealing. Diarrhea has now resolved. Qualifiers: Diarrhea type: unspecified type Qualified Code(s): R19.7 - Diarrhea, unspecified (3) Breast cancer in female Status: Chronic Assessment and plan: She is on faslodex. Treatment to be continued in the outpatient setting. Qualifiers: Laterality: unspecified laterality Qualified Code(s): C50.919 - Malignant neoplasm of unspecified site of unspecified female breast Oncology: Subj Interval history: Patient is doing well. Her diarrhea has resolved. She is able to tolerate a regular diet. She is eager to go home. - Constitutional Vitals: Vital Signs Temp Pulse Resp BP Pulse Ox 01/30/17 06:52 97.5 F L 64 12 108/64 94 01/30/17 04:00 95 01/30/17 03:44 98.1 F 71 18 106/57 83 01/30/17 00:51 98.2 F 87 14 120/67 74 01/29/17 20:58 98.7 F 68 18 143/70 90 01/29/17 16:45 98.0 F 74 18 164/59 94 01/29/17 16:00 97.7 F 64 18 152/79 93 01/29/17 14:40 98.5 F 72 16 156/70 94 Intake and Output 01/29/17 01/30/17 01/30/17 23:59 07:59 15:59 Intake Total 360 / 360 Output Total 200 / 200 500 / 500 Balance -200 / -200 -140 / -140 Intake: Oral 360 / 360 Output: Urine 200 / 200 500 / 500 Other: Meal Breakfast Percent of Meal Consumed 100% # Voids 1 Weight 71.2 kg Patient Weight 01/30/17 23:59 Weight 71.2 kg General appearance: average body habitus, no mild distress, no no acute distress , no severe distress - Head Head exam: Present: normal inspection, normocephalic - Eye Eye exam: Present: EOMI, normal appearance - ENT ENT exam: Present: normal external ear exam - Neck Neck exam: Absent: lymphadenopathy - Respiratory Respiratory exam: Present: CTAB - Cardiovascular Cardiovascular exam: Present: RRR, +S1, +S2 - GI/Abdominal GI/Abdominal exam: Present: soft. Absent: organomegaly, tenderness - Extremities Exam Extremities exam: Present: normal inspection. Absent: pedal edema, tenderness - Neurological Exam Neurological exam: Present: alert, oriented X3 Oncology: Obj Data - Labs CBC & Chem 7: 01/29/17 06:05 01/30/17 04:26 Labs: Laboratory Results - last 24 hr 01/29/17 01/30/17 05:50 04:26 Sodium 141 Potassium 3.7 Chloride 104 Carbon Dioxide 33 H BUN 9 Creatinine 0.64 Est GFR ( Amer) > 60 Est GFR (Non-Af Amer) > 60 BUN/Creatinine Ratio 14 Glucose 91 POC Glucose 94 H Calculated Osmolality 290 Calcium 8.8 Magnesium 2.1 Consult Discharge Plan - Plan Referrals: Mohini Franco CNP [Primary Care Provider] - 02/06/17 1:25 pm Jovanny Ruvalcaba MD [Partnered Physician] - 02/28/17 3:50 pm Prescriptions: Diphenoxylate/Atropine [Lomotil 2.5 mg/0.025 mg] 1 each PO QID PRN 30 Days PRN Reason: Diarrhea Lactobacillus [Culturelle] 1 each PO BID 30 Days OxyCODONE ER (12 HR) [OxyCONTIN] 20 mg PO Q12H #24 tab.er.12h OxyCODONE/APAP 5/325 [Percocet 5/325 MG] 1 each PO Q8HR PRN #42 tablet PRN Reason: Pain
[2017-01-30 14:29] VITALS: BP 127/73
--- NOTE | 2017-01-30 16:37 | Physician Discharge Referral ---
Home Health/Hosp Referral Info Transfer to: Home Health Provider in Charge Post Discharge: PCP - Diagnosis (1) Clostridium difficile infection Status: Acute (2) Breast cancer, stage 4 Status: Acute (3) Cancer associated pain Status: Acute (4) Bone metastases Status: Acute (5) Anemia Status: Acute (6) DVT prophylaxis Status: Acute - Respiratory Orders Smoking Cessation: Smoking cessation has been advised. For more information, call the [place] Tobacco Quit Line at 8-666-NQCD-NOW. - Diet/Nutrition Diet/Nutrition Orders: Regular - Activity Activity Orders: Ambulate - Services Needed Following services are medically necessary services: Home Health Aide, Physical Therapy, Occupational Therapy - Transfer Medications Prescriptions: OxyCODONE/APAP 5/325 [Percocet 5/325 MG] 1 each PO Q8HR PRN #42 tablet PRN Reason: Pain Diphenoxylate/Atropine [Lomotil 2.5 mg/0.025 mg] 1 each PO QID PRN 30 Days PRN Reason: Diarrhea Lactobacillus [Culturelle] 1 each PO BID 30 Days OxyCODONE ER (12 HR) [OxyCONTIN] 20 mg PO Q12H #24 tab.er.12h Home Medications: Multivitamin/Ferrous Sulfate [One-Daily Tnqni-Qgc-Jusl Tab] 18 mg PO DAILY #0 09/21/15 [History] Carvedilol [Coreg] 25 mg PO BID 10/10/15 [History] Sertraline [Zoloft] 150 mg PO DAILY 10/10/15 [History] Trazodone HCl [TraZODone] 50 mg PO HS 10/10/15 [History] Ranitidine HCl [Zantac] 150 mg PO BID 01/19/16 [History] Albuterol Sulfate [Albuterol Inhaler] 2 puff IH Q4H PRN 04/30/16 [History] Calcium Carbonate/Vitamin D3 [Calcium 600 + Vit D Tablet] 2 tab PO BID #60 tablet 11/09/16 [Rx] Atorvastatin Calcium [Lipitor] 20 mg PO QPM 01/18/17 [History] Clopidogrel [Plavix] 75 mg PO DAILY 01/18/17 [History] Fluticasone Propionate Nasal [Flonase] 100 mcg NS DAILY 01/18/17 [History] LORazepam [Ativan] 0.5 mg PO TID PRN 01/18/17 [History] Diphenoxylate/Atropine [Lomotil 2.5 mg/0.025 mg] 1 each PO QID PRN 30 Days 01/30 [Rx] Lactobacillus [Culturelle] 1 each PO BID 30 Days 01/30/17 [Rx] OxyCODONE ER (12 HR) [OxyCONTIN] 20 mg PO Q12H #24 tab.er.12h 01/30/17 [Rx] OxyCODONE/APAP 5/325 [Percocet 5/325 MG] 1 each PO Q8HR PRN #42 tablet 01/30/17 [Rx] Allergies/Adverse Reactions: Allergies iodine Allergy (Unknown, Verified 01/17/17 23:09) Difficulty Breathing Iodinated Contrast Media - Oral and [Iodinated Contrast Media - IV Dye] Allergy (Verified 01/17/17 23:09) Difficulty Breathing Opioids - Morphine Analogues Adverse Reaction (Unknown, Verified 01/17/17 23:09) Itching nausea watermelon Allergy (Unknown, Uncoded 04/26/16 12:51) Itching Certification: Further, I certify that my clinical findings support that this patient is homebound (i.e. absences from home require considerable and taxing effort and are for medical reasons or yazidi services or infrequently or short duration when for other reasons) because: Homebound Reason: Patient requires assistance of a person or device to safely leave home, Leaving home requires considerable and taxing effort due to condition Attestation: My signature below is to certify that this patient is under my care and that I, or nurse practitioner, or a physician's clinical services assistant working with me, has a face-to -face encounter with this patient.
== END 2017-01-30 15:54 | disposition home health service (06) | DRG 392 ==
LOC: EMEROO 22:56 → 3ANU 22:56 → SUATTDRO 01-18 04:40 → 3ANU 01-29 17:23
PROVIDERS: ADMIT Internal Medicine; ATTEND Internal Medicine
PROC: ENDOEBX (2017-01-29 14:00)

== ENCOUNTER 2017-03-24 21:52 | Inpatient (IN) ==
[2017-03-24] MEDS ORDERED: *HR* HYDROmorphone (PF) 1 MG/ML SYRINGE IVP ONE (22:06)
[2017-03-24] MEDS ORDERED: 0.9 % Sodium Chloride 1,000 ML IVC ONE (22:06)
[2017-03-24] MEDS ORDERED: Ondansetron 4 MG/2 ML VIAL IVP ONE (22:06)
--- NOTE | 2017-03-24 22:41 | Emergency Department Note ---
Disposition Clinical Impression: Abdominal pain Qualifiers: Abdominal location: generalized Qualified Code(s): R10.84 - Generalized abdominal pain Disposition: Still a Patient Condition: Undetermined Referrals: NO,PCP [Non-Partnered Physician] - Forms: Work/School Release, ED Satisfaction Letter Time of Disposition: 22:50 Abdominal Pain HPI - General Chief Complaint: ED Abdominal Pain Stated Complaint: C-Diff X 3 months Source: EMS Mode of arrival: ambulatory Limitations: no limitations Nursing Notes Reviewed: Yes Vital Signs Reviewed: Yes - History of Present Illness HPI Narrative: Patient is a 67-year-old female who presents to [facility] ED with a chief complaint of C. difficile colitis and not being able to afford her medications anymore. Patient states she was admitted back in December to this facility as well as to [place] for this last month. States they discharged her on oral vancomycin which she can no longer afford. Patient currently has stage IV breast cancer that has metastasized to the bone and lungs. Denies any new symptoms. Does state her abdominal pain is slightly worse than it has been in the past. No nausea, vomiting, fever or chills. No problems with urination. States she is just sick of running to the bathroom all the time. She has dark green watery stools. States she has been off her medications for at least several days. Patient was seen in the urgent care earlier today but states she still cannot afford the oral vancomycin that they prescribed her. Pt Subjective Complaint: abdominal pain Onset (ago): day(s) Consistency: Worsening Location: diffuse Pain Severity: moderate Pain Scale: 6 Quality: cramping, aching Radiation: none Migration to: no migration Improves with: nothing Worsens with: nothing Context: history of similar episodes Associated symptoms: Reports: diarrhea. Denies: nausea, vomiting, fever, chills Treatments prior to arrival: none - Related Data Home Medications Medication Instructions Recorded Confirmed Sertraline [Zoloft] 150 mg PO DAILY 10/10/15 03/24/17 Fluticasone Propionate Nasal 100 mcg NS DAILY 01/18/17 03/15/17 [Flonase] Acetaminophen w/Cod 300-30 mg 1 each PO Q6HR PRN 02/07/17 03/15/17 [Tylenol w/Codeine #3] Calcium Carbonate/Vitamin D3 1 each PO QDPC 02/21/17 03/15/17 [Calcium 600-Vit D3 400 Tablet] Acetaminophen w/Cod 300-30 mg 1 PO Q6HR 03/24/17 [Tylenol w/Codeine #3] Aspirin 81 mg PO DAILY 03/24/17 03/24/17 Atorvastatin Calcium [Lipitor] 20 mg PO 03/24/17 Carvedilol [Coreg] 25 mg PO BID 03/24/17 03/24/17 Oxycodone-Acetaminophn 5-325/5 5 - 325 PO Q4HR 03/24/17 Previous Rx's Medication Instructions Recorded LORazepam [Ativan] 0.5 mg PO TID PRN #90 tablet 02/07/17 Nitrofurantoin (BID) [Macrobid] 100 mg PO BID #6 capsule 03/24/17 Potassium Chloride Elixir 20 meq PO BID #10 mls 03/24/17 [Potassium Chloride] Vancomycin HCl 125 mg PO QID #40 cap 03/24/17 Allergies Allergy/AdvReac Type Severity Reaction Status Date / Time iodine Allergy Unknown Difficulty Verified 02/16/17 20:05 Breathing Iodinated Contrast- Oral and Allergy Difficulty Verified 02/16/17 20:05 IV Dye Breathing [Iodinated Contrast Media - IV Dye] Opioids - Morphine Analogues AdvReac Unknown Itching Verified 02/16/17 20:05 watermelon Allergy Unknown Itching Uncoded 02/16/17 20:05 All systems ED: reviewed and negative except as stated. Abdominal Pain PMH - Past Medical History Medical history: Reports: cancer, CVA, DVT, seizures, TIA, other Female Surgical History: Reports: orthopedic, other Psychiatric history: Reports: anxiety, depression - Social History Smoking status: Former smoker Alcohol use: Reports: none Drug use: Reports: none Physical Exam - General Limitations: no limitations General appearance: alert, in no apparent distress - Head Head exam: atraumatic, normocephalic, normal inspection - Eye Eye exam: Present: normal appearance, EOMI - ENT ENT exam: normal exam, normal oropharynx, mucous membranes moist - Neck Neck exam: Present: normal inspection, full ROM, trachea midline - Chest Chest inspection: Present: normal inspection, symmetric chest wall rise - Respiratory Respiratory exam: Present: normal lung sounds bilaterally - Cardiovascular Cardiovascular exam: Present: normal rhythm, tachycardia - Abdominal Exam Abdominal exam: Present: soft, tenderness, normal bowel sounds Abdominal tenderness: Present: diffuse - Extremities Exam Extremities exam: Present: normal inspection, full ROM. Absent: tenderness, pedal edema - Back Exam Back exam: Present: normal inspection, full ROM. Absent: tenderness - Neurological Exam Neurological exam: Present: alert - Psychiatric Psychiatric exam: Present: normal affect, normal mood - Skin Skin exam: Present: warm, dry, intact, normal color Course Course Narrative: Patient seen and examined. Recent history of C. difficile colitis. He has not been able to afford her medications for at least several days now. Worsening abdominal pain. Abdominal labs, CT abdomen and pelvis without contrast ordered. We will place an IV, give a liter of fluids, Zofran and Dilaudid to help with pain and nausea. We will also get a GI panel and urinalysis. - Reevaluation(s) Reevaluation #1: Lab work and CT scan still pending. At this time, patient has been signed out to night team Dr. Robledo. Time: 22:50 Vital Signs Temperature 98.1 F 03/24/17 21:55 Pulse Rate 88 03/24/17 21:55 Respiratory Rate 18 03/24/17 21:55 Blood Pressure 131/93 03/24/17 21:55 O2 Sat by Pulse Oximetry 95 03/24/17 21:55 Temperature 98.1 F 03/24/17 21:55 Pulse Rate 88 03/24/17 21:55 Respiratory Rate 18 03/24/17 21:55 Blood Pressure 131/93 03/24/17 21:55 O2 Sat by Pulse Oximetry 95 03/24/17 21:55 Oxygen Delivery Oxygen Delivery Room Air Abdominal Pain - Medical Records Medical records reviewed: Yes I reviewed the patient's medical records. Attestation Statement - Attestation Attestation: Patient was seen with resident physician. I reviewed the history, physical, assessment and plan, and agree with the findings. I also personally evaluated this patient and had [id number] time with this patient. 67-year-old female presents to the emergency department with recurrent episodes of C. difficile colitis. Patient states that she has had 3 episodes of this first time she was admitted here for IV antibiotic therapy. Second time she is admitted [facility]. And then this time she said she ran out of her medications about 3 or 4 days ago. She said she can no longer afford the oral vancomycin. She then started having diarrhea and lower abdominal pain again approximately a day or so ago. She was seen at urgent care today and was prescribed medication but again she cannot afford them so she came to the emergency department for additional evaluation and treatment. She says she has lower abdominal pain and diarrhea consistent with her C. difficile. She said she is able to keep things down she is not having vomiting. On exam vital signs are stable. ENT is unremarkable. Heart and lungs are normal. Abdomen is soft there is no guarding or rigidity there is some lower abdominal tenderness mostly in the middle the lower abdomen. Neurologically the patient is intact ED course we will repeat a CT scan without contrast as the patient is allergic to it just to check for abscess or other abnormalities also to look for inflammation. Also recheck blood work and then attempt to find a medication that the patient either can afford, or if her findings are significant enough admit her to the hospital. Patient will be signed out to the overnight cashier team for final disposition as her entire workup is pending at the time of shift change. Dr. Leonard was given sign out at approximately 11 PM.
[2017-03-24 23:21] LABS: Basophils % 1.1 %; Eosinophils # 0.1 K/mcL (0.0-0.6); Eosinophils % 4.5 %; Hemoglobin 11.4 g/dL (11.5-15.4); Immature Granulocytes % 0.4 % (0-4); Lymphocytes # 0.9 K/mcL (0.6-4.6); Lymphocytes % 33.2 %; Mean Corpuscular HGB Conc 32.6 g/dL (31.6-35.5); Mean Corpuscular Hemoglobin 29.8 pg (28.0-33.3); Mean Corpuscular Volume 91.4 fL (83.0-100.0); Monocytes # 0.4 K/mcL (0.0-1.3); Monocytes % 13.6 %; Neutrophils # 1.3 K/mcL (1.6-8.9); Platelet Count 104 K/mcL (140-400); Red Blood Count 3.83 M/mcL (3.82-4.97); Red Cell Distribution Width 18.1 % (11.5-14.5); Segmented Neutrophils % 47.2 %
[2017-03-24 23:37] LABS: Alanine Aminotransferase 12 Units/L (0-55); Albumin 3.8 g/dL (3.5-5.0); Albumin/Globulin Ratio 1.1 (1.1-2.2); Alkaline Phosphatase 58 Units/L (38-126); Aspartate Amino Transferase 17 Units/L (5-34); BUN/Creatinine Ratio 11 (6-26); Bilirubin,Direct 0.2 mg/dL (0.0-0.5); Bilirubin,Indirect 0.3 mg/dL (0.0-1.2); Bilirubin,Total 0.5 mg/dL (0.2-1.2); Blood Urea Nitrogen 8 mg/dL (7-20); Calcium 9.1 mg/dL (8.6-10.8); Carbon Dioxide 24 mEq/L (19-29); Chloride 104 mEq/L (98-109); Globulin 3.5 g/dL (2.4-3.5); Glucose 111 mg/dL (70-99); Lipase 6 Units/L (8-78); Osmolality,Calculated 285 (280-300); Potassium 3.2 mEq/L (3.5-4.5); Sodium 138 mEq/L (136-145); Total Protein 7.3 g/dL (6.0-8.3); eGFR For African Americans > 60 (> 60); eGFR For Non-African Americans > 60 (> 60)
[2017-03-24 23:40] LABS: Basophilic Stippling 1+ (Not Present); Large Platelets Present (Not Present)
[2017-03-25 00:08] LABS: C.difficile Toxin A/B by PCR See reflex test (Not detect); Campylobacter by PCR Not detected (Not detect)
[2017-03-25 00:09] LABS: Adenovirus F 40/41 PCR Not detected (Not detect); Astrovirus PCR Not detected (Not detect); Cryptosporidium by PCR Not detected (Not detect); Cyclospora cayetanensis PCR Not detected (Not detect); Entamoeba histolytica PCR Not detected (Not detect); Enteroaggregative E.coli(EAEC) Not detected (Not detect); Enteropathogenic E.coli(EPEC) Not detected (Not detect); Enterotoxigenic E.coli (ETEC) Not detected (Not detect); Giardia lamblia PCR Not detected (Not detect); Norovirus GI/GII PCR Not detected (Not detect); Plesiomonas shigelloides PCR Not detected (Not detect); Rotavirus A PCR Not detected (Not detect); Salmonella PCR Not detected (Not detect); Sapovirus PCR Not detected (Not detect); Shig/EnteroinvasiveE coli EIEC Not detected (Not detect); Shigalike tox-prod E coli STEC Not detected (Not detect); Vibrio PCR Not detected (Not detect); Vibrio cholerae PCR Not detected (Not detect); Yersinia enterocolitica PCR Not detected (Not detect)
[2017-03-25] MEDS ORDERED: Vancomycin Oral Soln 250 MG/2.5 ML UDC PO STA (00:53)
[2017-03-25] MEDS ORDERED: MetroNIDAZOLE 500 MG/100 ML 500 MG/100 ML BAG IVPB STA (01:19)
--- NOTE | 2017-03-25 01:23 | Emergency Department Note ---
START Narrative - START START: Patient taken over at signout from Dr. Garecs. Patient has had significant bouts of C. difficile diarrhea that have worsened over the last 3 days that she has been unable to afford her home medication of oral vancomycin. Labs show that the patient is leukopenic and CT scan shows only a slight decrease in the overall amount of colitis. Patient will be given antibiotics and admitted to the hospitalist service. 1:22 AM. Discussed with hospitalist Dr. Bourne. Patient accepted for admission. He would like to add Flagyl and Cipro to help further treat her infection and she is leukopenic and also has evidence of a UTI. Previous cultures show Klebsiella that was pansensitive to everything except Macrobid. <Jacky Robledo - Last Filed: 03/25/17 01:23> - START START: ATTENDING ATTESTATION STATEMENT See my additional note from this visit. <Gavin Leonard - Last Filed: 03/25/17 03:14>
--- NOTE | 2017-03-25 03:13 | Emergency Department Note ---
Disposition Clinical Impression: C. difficile enteritis Abdominal pain Qualifiers: Abdominal location: generalized Qualified Code(s): R10.84 - Generalized abdominal pain Disposition: Admitted As Inpatient Condition: Fair Abdominal Pain HPI - General Chief Complaint: ED Abdominal Pain Stated Complaint: C-Diff X 3 months Time Seen by Provider: 03/25/17 00:27 Source: EMS Mode of arrival: ambulatory - History of Present Illness Pt Subjective Complaint: abdominal pain Location: diffuse Pain Severity: moderate Pain Scale: 3 Quality: cramping, aching Migration to: no migration Improves with: nothing Worsens with: nothing Context: history of similar episodes Associated symptoms: Reports: diarrhea. Denies: nausea, vomiting, fever, chills - Related Data Home Medications Medication Instructions Recorded Confirmed Sertraline [Zoloft] 150 mg PO DAILY 10/10/15 03/24/17 Fluticasone Propionate Nasal 100 mcg NS DAILY 01/18/17 03/15/17 [Flonase] Acetaminophen w/Cod 300-30 mg 1 each PO Q6HR PRN 02/07/17 03/15/17 [Tylenol w/Codeine #3] Calcium Carbonate/Vitamin D3 1 each PO QDPC 02/21/17 03/15/17 [Calcium 600-Vit D3 400 Tablet] Acetaminophen w/Cod 300-30 mg 1 PO Q6HR 03/24/17 [Tylenol w/Codeine #3] Aspirin 81 mg PO DAILY 03/24/17 03/24/17 Atorvastatin Calcium [Lipitor] 20 mg PO 03/24/17 Carvedilol [Coreg] 25 mg PO BID 03/24/17 03/24/17 Oxycodone-Acetaminophn 5-325/5 5 - 325 PO Q4HR 03/24/17 Previous Rx's Medication Instructions Recorded LORazepam [Ativan] 0.5 mg PO TID PRN #90 tablet 02/07/17 Nitrofurantoin (BID) [Macrobid] 100 mg PO BID #6 capsule 03/24/17 Potassium Chloride Elixir 20 meq PO BID #10 mls 03/24/17 [Potassium Chloride] Vancomycin HCl 125 mg PO QID #40 cap 03/24/17 Allergies Allergy/AdvReac Type Severity Reaction Status Date / Time iodine Allergy Unknown Difficulty Verified 02/16/17 20:05 Breathing Iodinated Contrast- Oral and Allergy Difficulty Verified 02/16/17 20:05 IV Dye Breathing [Iodinated Contrast Media - IV Dye] Opioids - Morphine Analogues AdvReac Unknown Itching Verified 02/16/17 20:05 watermelon Allergy Unknown Itching Uncoded 02/16/17 20:05 Abdominal Pain PMH - Past Medical History Medical history: Reports: cancer, CVA, DVT, seizures, TIA, other Female Surgical History: Reports: orthopedic, other Psychiatric history: Reports: anxiety, depression - Social History Smoking status: Former smoker Alcohol use: Reports: none Drug use: Reports: none Physical Exam - General Limitations: no limitations General appearance: alert, in no apparent distress Course Vital Signs Temperature 98.1 F 03/24/17 21:55 Pulse Rate 88 03/24/17 21:55 Respiratory Rate 18 03/24/17 21:55 Blood Pressure 131/93 03/24/17 21:55 O2 Sat by Pulse Oximetry 95 03/24/17 21:55 Temperature 0 F L 03/25/17 02:39 Pulse Rate 90 03/24/17 23:17 Respiratory Rate 18 03/25/17 02:39 Blood Pressure 165/95 03/25/17 02:39 O2 Sat by Pulse Oximetry 95 03/24/17 23:17 Oxygen Delivery Oxygen Delivery Room Air Abdominal Pain - Lab Data Result diagrams: 03/24/17 23:14 03/24/17 23:14 Lab Results 03/24/17 03/24/17 03/24/17 Range/Units 22:25 22:25 23:14 WBC 2.7 L (4.3-11.1) K/mcL RBC 3.83 (3.82-4.97) M/mcL Hgb 11.4 L (11.5-15.4) g/dL Hct 35.0 L (35.3-44.9) % MCV 91.4 (83.0-100.0) fL MCH 29.8 (28.0-33.3) pg MCHC 32.6 (31.6-35.5) g/dL RDW 18.1 H (11.5-14.5) % Plt Count 104 L (140-400) K/mcL MPV 10.0 (9.4-12.4) fL Immature Gran % 0.4 (0-4) % Seg Neutrophils % 47.2 % Lymphocytes % 33.2 % Monocytes % 13.6 % Eosinophils % 4.5 % Basophils % 1.1 % Neutrophils # 1.3 L (1.6-8.9) K/mcL Lymphocytes # 0.9 (0.6-4.6) K/mcL Monocytes # 0.4 (0.0-1.3) K/mcL Eosinophils # 0.1 (0.0-0.6) K/mcL Basophils # 0.0 (0.0-0.2) K/mcL Large Platelets Present A (Not Present) Basophilic Stippling 1+ A (Not Present) Sodium (136-145) mEq/L Potassium (3.5-4.5) mEq/L Chloride (98-109) mEq/L Carbon Dioxide (19-29) mEq/L BUN (7-20) mg/dL Creatinine (0.57-1.11) mg/dL Est GFR ( Amer) (> 60) Est GFR (Non-Af Amer) (> 60) BUN/Creatinine Ratio (6-26) Glucose (70-99) mg/dL Calculated Osmolality (280-300) Lactic Acid (0.5-2.2) mmol/L Calcium (8.6-10.8) mg/dL Total Bilirubin (0.2-1.2) mg/dL Direct Bilirubin (0.0-0.5) mg/dL Indirect Bilirubin (0.0-1.2) mg/dL AST (5-34) Units/L ALT (0-55) Units/L Alkaline Phosphatase (38-126) Units/L Serum Total Protein (6.0-8.3) g/dL Albumin (3.5-5.0) g/dL Globulin (2.4-3.5) g/dL Albumin/Globulin Ratio (1.1-2.2) Lipase (8-78) Units/L Stl C. cayetanensis PCR Not detected (Not detect) Stool Rotavirus A PCR Not detected (Not detect) Stl Adenov F 40/41 PCR Not detected (Not detect) Stool Astrovirus (PCR) Not detected (Not detect) Stool Campylobacter PCR Not detected (Not detect) Stl C. diff Tox B Gene Positive (Negative) Stl C. diff Tox A/B PCR See reflex test A (Not detect) Stool Cryptosporidium PCR Not detected (Not detect) Stl Sh Tox Pr E STEC PCR Not detected (Not detect) Stl Enterotoxigenic E PCR Not detected (Not detect) Stool EPEC (PCR) Not detected (Not detect) Stool EAEC (PCR) Not detected (Not detect) Stl E. histolytica PCR Not detected (Not detect) Stool Giardia Lamblia PCR Not detected (Not detect) Stool Salmonella PCR Not detected (Not detect) Stool Sapovirus (PCR) Not detected (Not detect) Stl P. shigelloides PCR Not detected (Not detect) Stl Shigella/EIEC PCR Not detected (Not detect) St Y.enterocolitica PCR Not detected (Not detect) Stool Vibrio (PCR) Not detected (Not detect) Stl Vibrio cholerae PCR Not detected (Not detect) Stl Norovirus GI/GII PCR Not detected (Not detect) Stl GI Panel (PCR) Com See below 03/24/17 03/24/17 Range/Units 23:14 23:14 WBC (4.3-11.1) K/mcL RBC (3.82-4.97) M/mcL Hgb (11.5-15.4) g/dL Hct (35.3-44.9) % MCV (83.0-100.0) fL MCH (28.0-33.3) pg MCHC (31.6-35.5) g/dL RDW (11.5-14.5) % Plt Count (140-400) K/mcL MPV (9.4-12.4) fL Immature Gran % (0-4) % Seg Neutrophils % % Lymphocytes % % Monocytes % % Eosinophils % % Basophils % % Neutrophils # (1.6-8.9) K/mcL Lymphocytes # (0.6-4.6) K/mcL Monocytes # (0.0-1.3) K/mcL Eosinophils # (0.0-0.6) K/mcL Basophils # (0.0-0.2) K/mcL Large Platelets (Not Present) Basophilic Stippling (Not Present) Sodium 138 (136-145) mEq/L Potassium 3.2 L (3.5-4.5) mEq/L Chloride 104 (98-109) mEq/L Carbon Dioxide 24 (19-29) mEq/L BUN 8 (7-20) mg/dL Creatinine 0.70 (0.57-1.11) mg/dL Est GFR ( Amer) > 60 (> 60) Est GFR (Non-Af Amer) > 60 (> 60) BUN/Creatinine Ratio 11 (6-26) Glucose 111 H (70-99) mg/dL Calculated Osmolality 285 (280-300) Lactic Acid 1.0 (0.5-2.2) mmol/L Calcium 9.1 (8.6-10.8) mg/dL Total Bilirubin 0.5 (0.2-1.2) mg/dL Direct Bilirubin 0.2 (0.0-0.5) mg/dL Indirect Bilirubin 0.3 (0.0-1.2) mg/dL AST 17 (5-34) Units/L ALT 12 (0-55) Units/L Alkaline Phosphatase 58 (38-126) Units/L Serum Total Protein 7.3 (6.0-8.3) g/dL Albumin 3.8 (3.5-5.0) g/dL Globulin 3.5 (2.4-3.5) g/dL Albumin/Globulin Ratio 1.1 (1.1-2.2) Lipase 6 L (8-78) Units/L Stl C. cayetanensis PCR (Not detect) Stool Rotavirus A PCR (Not detect) Stl Adenov F 40/41 PCR (Not detect) Stool Astrovirus (PCR) (Not detect) Stool Campylobacter PCR (Not detect) Stl C. diff Tox B Gene (Negative) Stl C. diff Tox A/B PCR (Not detect) Stool Cryptosporidium PCR (Not detect) Stl Sh Tox Pr E STEC PCR (Not detect) Stl Enterotoxigenic E PCR (Not detect) Stool EPEC (PCR) (Not detect) Stool EAEC (PCR) (Not detect) Stl E. histolytica PCR (Not detect) Stool Giardia Lamblia PCR (Not detect) Stool Salmonella PCR (Not detect) Stool Sapovirus (PCR) (Not detect) Stl P. shigelloides PCR (Not detect) Stl Shigella/EIEC PCR (Not detect) St Y.enterocolitica PCR (Not detect) Stool Vibrio (PCR) (Not detect) Stl Vibrio cholerae PCR (Not detect) Stl Norovirus GI/GII PCR (Not detect) Stl GI Panel (PCR) Com Attestation Statement - Attestation Attestation: I, Gavin Leonard MD, personally evaluated this patient and discussed their management with the resident physician. I reviewed the resident's note and agree with the documented findings, medical decision making, and plan of care. This patient was signed out at shift change from Dr. Garces and Dr. Barbosa. Please refer to their notes for complete details of the history and physical examination. At shift change patient was awaiting CT of the abdomen and pelvis and labs. Labs reviewed. CT showed improvement in patient's colitis, otherwise no acute abnormality. On exam patient is a well-developed well-nourished female in no acute distress. She is alert and oriented 3. There is no cyanosis or diaphoresis. Breath sounds are clear and equal bilaterally. Heart regular rate and rhythm. Abdomen is soft with normal bowel sounds. Is mild mid abdominal tenderness with no guarding or rebound tenderness. The hospitalist, Dr. Hardy, was consulted and accepted admission of the patient.
[2017-03-25] MEDS ORDERED: Naloxone 0.4 MG/ML INJ IVP PRN (05:00)
[2017-03-25] MEDS ORDERED: Acetaminophen 325 MG TABLET PO PRN (05:00)
--- NOTE | 2017-03-25 05:00 | Internal Med History&Physical ---
Date of Encounter: 03/25/17 Time of Encounter: 04:59 Assessment and Plan (1) Clostridium difficile infection Current visit: Yes Status: Acute Recurrent infection versus unresolved infection. Will treat total vancomycin, metronidazole, culturelle. Will consult Infectious disease team for further advice. Consider GI / Surgical consult, if the pt becomes toxic or worsen. (2) UTI (urinary tract infection) Current visit: No Status: Acute Recent urine culture was positive for klebsiella. Will treat suspected UTI, with ciprofloxacin Qualifiers: Urinary tract infection type: site unspecified Hematuria presence: without hematuria Qualified Code(s): N39.0 - Urinary tract infection, site not specified (3) Breast cancer, stage 4 Current visit: Yes Status: Chronic Supportive care Qualifiers: Laterality: left Qualified Code(s): C50.912 - Malignant neoplasm of unspecified site of left female breast (4) Hypokalemia Current visit: Yes Status: Acute Replenish potassium (5) Normocytic anemia Current visit: Yes Status: Chronic Possibly due to anemia of chronic disease. Monitor H&H (6) Leucopenia Current visit: Yes Status: Acute Likely secondary to infection. Monitor Qualifiers: Leukopenia type: unspecified Qualified Code(s): D72.819 - Decreased white blood cell count, unspecified Internal Medicine - H&P: HPI Chief complaint: Diarrhea Admitted From: Emergency Dept Plans for Post Hospital Care: Home History of present illness: Ms. Lemons is a 67 year old female With h/o left breast cancer s/p mastectomy /chemotherapy - now has lung metastases; hypertension. She was apparently treated for C. difficile infection / colitis in December 2016 and apparently was discharged on oral vancomycin, which she could not afford and could not continue after discharge. She was admitted to [facility] in January 2017, with C. difficile infection and was discharged after 1 week of inpatient treatement. She apparently was not able to afford oral vancomycin prescription. She reports that she started having symptoms 1 week of discharge and is gradually worsening. She reports about 10 loose, watery / black bowel movements a day now. She denies blood in the BM. She departs crampy lower abdominal pain, which is moderate and nonradiating, worse when she is defecating. She denies nausea, vomiting, fever, chills, loss of appetite. She denies chest pain, shortness of breath. She reports chronic dysuria. Denies hematuria. She was evaluated in the emergency department and I was noted to be positive for C. difficile infection. CT abdomen showed diffuse colonic wall thickening. She was given oral vancomycin and admitted to the hospitalist service for further management. Past Med Surg Social Fam HX - Past Medical History Medical history: cancer, CVA, DVT, seizures, TIA, other Psychiatric history: anxiety, depression - Past Surgical History Surgical History: breast surgery, cancer surgery, other - Social History Smoking Status: Former smoker Smokeless Tobacco Status: No Alcohol use: none Drug use: none - Family History Mother Adopted: No Family Member Ethnicity: Non- Living Status: Hx Family Cardiac Disorders: Yes Internal Medicine - H&P: Meds Sertraline [Zoloft] 150 mg PO DAILY 10/10/15 [History] Fluticasone Propionate Nasal [Flonase] 100 mcg NS DAILY 01/18/17 [History] Acetaminophen w/Cod 300-30 mg [Tylenol w/Codeine #3] 1 each PO Q6HR PRN [History] LORazepam [Ativan] 0.5 mg PO TID PRN #90 tablet 02/07/17 [Rx] Calcium Carbonate/Vitamin D3 [Calcium 600-Vit D3 400 Tablet] 1 each PO QDPC [History] Acetaminophen w/Cod 300-30 mg [Tylenol w/Codeine #3] 1 PO Q6HR 03/24/17 [History ] Aspirin 81 mg PO DAILY 03/24/17 [History] Atorvastatin Calcium [Lipitor] 20 mg PO 03/24/17 [History] Carvedilol [Coreg] 25 mg PO BID 03/24/17 [History] Nitrofurantoin (BID) [Macrobid] 100 mg PO BID #6 capsule 03/24/17 [Rx] Oxycodone-Acetaminophn 5-325/5 5 - 325 PO Q4HR 03/24/17 [History] Potassium Chloride Elixir [Potassium Chloride] 20 meq PO BID #10 mls 03/24/17 [ Rx] Vancomycin HCl 125 mg PO QID #40 cap 03/24/17 [Rx] Allergies iodine Allergy (Unknown, Verified 02/16/17 20:05) Difficulty Breathing Iodinated Contrast- Oral and IV Dye [Iodinated Contrast Media - IV Dye] Allergy (Verified 02/16/17 20:05) Difficulty Breathing Opioids - Morphine Analogues Adverse Reaction (Unknown, Verified 02/16/17 20:05) Itching nausea watermelon Allergy (Unknown, Uncoded 02/16/17 20:05) Itching All Systems PM: A 10-system review of systems was performed and is negative for pertinent findings except as documented above in the HPI. - Constitutional Vitals: Temp Pulse Resp BP Pulse Ox 98.5 F 79 15 132/83 94 03/25/17 03:22 03/25/17 03:22 03/25/17 03:22 03/25/17 03:22 03/25/17 03:22 Exam: General: Not in acute distress at the time of my evaluation HEENT: Oral mucosa is moist. No conjunctival palor or scleral icterus Neck: No obvious neck swellings Lungs: Clear to auscultation Cardiac: Regular rate and rhythm. No significant murmurs Abdomen: Soft, mild lower abdominal tenderness present. Bowel sounds present Genitourinary: No willams catheter Neurological: Alert and oriented. No gross localizing deficits Psych: Not aggressive or agitated Extremities: no significant leg edema Skin: No generalized rash Internal Med - H&P Results - Labs CBC & Chem 7: 03/25/17 05:24 03/25/17 05:24 - Impressions ITS Impressions Abdomen/Pelvis CT 03/24/17 22:08 IMPRESSION: There has been suggested slight interval improvement in diffuse colonic wall thickening. Gallstones Renal calcifications and renal lesions on the left, unchanged. Pleural thickening in the left lung base, stable. D/ / Sebas Salinas / Sebas Salinas Interpreting Provider: Sebas Salinas
[2017-03-25 05:38] LABS: Basophils % 1.1 %; Immature Granulocytes % 0.4 % (0-4)
[2017-03-25 05:40] LABS: Eosinophils # 0.2 K/mcL (0.0-0.6); Eosinophils % 7.3 %; Hematocrit 30.1 % (35.3-44.9); Hemoglobin 9.7 g/dL (11.5-15.4); Immature Platelets 3.4 % (1.1-6.1); Lymphocytes % 37.5 %; Mean Corpuscular HGB Conc 32.2 g/dL (31.6-35.5); Mean Corpuscular Hemoglobin 29.3 pg (28.0-33.3); Mean Corpuscular Volume 90.9 fL (83.0-100.0); Monocytes # 0.4 K/mcL (0.0-1.3); Monocytes % 15.6 %; Neutrophils # 1.1 K/mcL (1.6-8.9); Red Blood Count 3.31 M/mcL (3.82-4.97); Red Cell Distribution Width 17.9 % (11.5-14.5); Segmented Neutrophils % 38.1 %
[2017-03-25 05:51] LABS: BUN/Creatinine Ratio 12 (6-26); Blood Urea Nitrogen 7 mg/dL (7-20); Calcium 7.9 mg/dL (8.6-10.8); Carbon Dioxide 24 mEq/L (19-29); Chloride 108 mEq/L (98-109); Glucose 104 mg/dL (70-99); Magnesium 1.6 mg/dL (1.6-2.6); Osmolality,Calculated 286 (280-300); Potassium 3.2 mEq/L (3.5-4.5); Sodium 139 mEq/L (136-145); eGFR For African Americans > 60 (> 60); eGFR For Non-African Americans > 60 (> 60)
[2017-03-25 06:00] LABS: Lymphocytes # 1.1 K/mcL (0.6-4.6); Platelet Count 99 K/mcL (140-400)
[2017-03-25 06:02] LABS: Anisocytosis 1+ (Not Present); Microcytosis Present (Not Present); Platelet Estimate Slight Decrease (Normal); Polychromasia 1+ (Not Present)
[2017-03-25] MEDS: Vancomycin Oral Soln 250 MG/2.5 ML UDC PO SCH ×5 (06:53→21:58)
[2017-03-25] MEDS: Lactobacillus 1 EACH CAP.SPRINK PO SCH ×2 (08:21→22:00)
[2017-03-25] MEDS ORDERED: MetroNIDAZOLE 500 MG/100 ML 500 MG/100 ML BAG IVPB SCH (09:00)
--- NOTE | 2017-03-25 11:18 | Infectious Disease Consult ---
Date of Encounter: 03/25/17 Time of Encounter: 11:13 Assessment and Plan (1) Clostridium difficile infection Status: Acute Assessment and plan: C. diff positive. Mild/moderate. Recurrent - likely secondary to immunosuppression and recent antibiotic use. Previously treated with a 28 day course of oral Vanc and Flagyl. CT of the abdomen and pelvis shows diffuse colonic wall thickening that is improved since the previous study. Discontinue metronidazole. Continue Vanc PO, but decrease dose to 125mg QID. Continue contact/C. diff precautions. Consult administrator social welfare to assist with medication costs on discharge. Duration of treatment depends on the clinical picture. (2) UTI (urinary tract infection) Status: Acute Assessment and plan: Causative organism unclear. Previous urine culture grew card-sensitive K. pneumoniae. She was treated with a 10 day course of Bactrim. Continue Cipro for now, but switch to 500mg PO BID (day 2). De-escalate based on urine culture results. Duration of treatment depends on the clinical picture. Monitor renal function and dose-adjust antibiotics. Qualifiers: Urinary tract infection type: site unspecified Hematuria presence: without hematuria Qualified Code(s): N39.0 - Urinary tract infection, site not specified (3) Pancytopenia Status: Acute Assessment and plan: Review of previous labs indicate this is new. Etiology unclear: chemo vs. infection vs. other. Consider Hem/Onc consult to evaluate. Continue to monitor closely. (4) Hypokalemia Status: Acute Assessment and plan: Likely related to GI loss from diarrhea. Management per the primary team. (5) Breast cancer, stage 4 Status: Chronic Assessment and plan: Originally diagnosed in 1996 with recurrence in 1997. Surveillance imaging 2016 showed new lung mets. Currently on oral Ribocidib (21 days on, 7 days off) and letrozole (daily). Follows with Dr. Muse with the [facility]. Qualifiers: Laterality: left Qualified Code(s): C50.912 - Malignant neoplasm of unspecified site of left female breast (6) Cancer associated pain Status: Acute Assessment and plan: Secondary to bone mets. Management per the primary team. Infectious Disease HPI - Data of Consult Patient: new to practice Consult date: 03/25/17 Requesting Physician: Rishabh Lewis MD Primary Care Provider: Mohini Franco CNP - Consult Narrative Reason for consult: C. diff History of present illness: Ms. 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 The patient was admitted to the hospital March 24 for C. difficile. We are consulted March 25 for further evaluation and treatment recommendations regarding C. difficile. The patient's a 67-year-old female past medical history as stated above. The patient states that she has had recurrent C. difficile date back to December of this year. Review of the medical record reveals that the patient was positive for C. difficile back on January 16 and was treated with a 14 day course of oral vancomycin. Repeat testing on January 25 was negative. The patient began to experience symptoms again on February 16 and was again positive. She was treated with a 28 day course of oral vancomycin and oral Flagyl. She states again her symptoms improved and her stools were more formed, but she again began to experience diarrhea on March 23. The patient states she was seen at [facility] and was tested positive for C. difficile and was discharged with prescriptions for medications, but states she was unable to afford them. She also had a urine culture indicative of a possible urinary tract infection. She presented to our emergency department for further evaluation. Upon arrival, the patient was afebrile and hemodynamically stable. Labs were studies reveal a white blood cell count of 2.7 thousand with 13% monocytes. She also has thrombocytopenia. C. difficile was positive. Lactic acid was normal. CT abdomen and pelvis showed diffuse colonic wall thickening, improved since previous study. Additionally, gallstones were also noted. The patient also had renal lesions and calcifications that were unchanged from a previous CAT scan. There was also left lung base pleural thickening. The patient was started on IV Cipro , IV Flagyl, and oral vancomycin. She was admitted to the hospital for further evaluation and treatment. Since admission, the patient has remained afebrile and hemodynamically stable. The patient is currently undergoing oral chemotherapy for her metastatic breast cancer with Ribocidib and letrozole that is managed by Dr. Muse and the [facility]. She was recently treated with a 10 day course of Bactrim for a UTI by her PCP. Repeat labs this morning again showed leukopenia with monocytosis. The patient states that prior to admission, she was afebrile and denies any chills or rigors. She reports chronic headache and neck pain. She denies any earache, sore throat, or nasal drainage, but does report chronic congestion. She denies any chest pain, shortness of breath, or cough. She denies any nausea or vomiting. She says that her diarrhea is watery and very loose and mucousy and she is incontinent of stool. She denies any abdominal pain , but does report that her appetite is poor. She reports urinary frequency and chronic dysuria. She states that she felt "lousy" yesterday and that prompted her to go to the ER. She reports chronic bilateral shoulder pain and currently denies any acute pain. CC: Rishabh Lewis MD Past Med Surg Social Fam HX - Past Medical History Attestation: Yes The following information was validated with the patient. Source: patient, old records reviewed, nursing notes reviewed Medical history: cancer (Stage IV breast CA with mets to bone/lung), CVA, DVT, GERD, hyperlipidemia, hypertension, pulmonary embolus, seizures, TIA, other (DJD , LUE lymphedema) Psychiatric history: anxiety, depression - Past Surgical History Surgical History: breast surgery (Left mastectomy), cancer surgery, other (Left shoulder arthroplasty, right shoulder rotator cuff repair) - Social History Smoking Status: Former smoker Packs per day: 34 pack year Smokeless Tobacco Status: No Alcohol use: none Drug use: none Occupational status: retired Current living situation: Home - Independent Activity Level: Independent ambulation Recent Out of Country Travel Within the Last 8 Weeks: No Exposure or Possible Exposure to Illness During Travel: No - Family History Mother Adopted: No Family Member Ethnicity: Non- Living Status: Hx Family Cardiac Disorders: Yes Infectious Disease-CN:Meds Sertraline [Zoloft] 150 mg PO DAILY 10/10/15 [History] Fluticasone Propionate Nasal [Flonase] 1 spray NS DAILY 01/18/17 [History] LORazepam [Ativan] 0.5 mg PO TID PRN #90 tablet 02/07/17 [Rx] Calcium Carbonate/Vitamin D3 [Calcium 600-Vit D3 400 Tablet] 1 tab PO QDPC 02/21 [History] Aspirin 81 mg PO DAILY 03/24/17 [History] Atorvastatin Calcium [Lipitor] 20 mg PO DAILY 03/24/17 [History] Carvedilol [Coreg] 25 mg PO BID 03/24/17 [History] Nitrofurantoin (BID) [Macrobid] 100 mg PO BID #6 capsule 03/24/17 [Rx] Potassium Chloride Elixir [Potassium Chloride] 20 meq PO BID #10 mls 03/24/17 [ Rx] Vancomycin HCl 125 mg PO QID #40 cap 03/24/17 [Rx] Albuterol Sulfate [Proair Hfa] 2 puff IH Q4H PRN 03/25/17 [History] Letrozole [Femara] 2.5 mg PO DAILY 03/25/17 [History] Multivitamin [One Daily Essential] 1 tab PO DAILY 03/25/17 [History] Pantoprazole Sodium [Protonix] 40 mg PO DAILY 03/25/17 [History] Ranitidine HCl [Zantac] 150 mg PO BID 03/25/17 [History] Ribociclib Succinate [Kisqali] 200 mg PO DAILY 03/25/17 [History] Trazodone HCl 100 mg PO HS 03/25/17 [History] Allergies iodine Allergy (Unknown, Verified 02/16/17 20:05) Difficulty Breathing Iodinated Contrast- Oral and IV Dye [Iodinated Contrast Media - IV Dye] Allergy (Verified 02/16/17 20:05) Difficulty Breathing Opioids - Morphine Analogues Adverse Reaction (Unknown, Verified 02/16/17 20:05) Itching nausea watermelon Allergy (Unknown, Uncoded 02/16/17 20:05) Itching All systems: reviewed and no additional remarkable complaints except as stated Exam - Constitutional Vitals: Temp Pulse Resp BP Pulse Ox 98.2 F 70 17 136/79 94 03/25/17 08:16 03/25/17 08:16 03/25/17 08:16 03/25/17 08:16 03/25/17 08:16 General appearance: average body habitus, cooperative, no acute distress - Head Head exam: Present: atraumatic, normal inspection, normocephalic - Eye Eye exam: Present: EOMI, normal appearance, PERRL Pupils: Present: normal accommodation - ENT ENT exam: Present: mucous membranes moist - Neck Neck exam: Present: normal inspection - Respiratory Respiratory exam: Present: CTAB. Absent: rales, respiratory distress, rhonchi, wheezes - Cardiovascular Cardiovascular exam: Present: RRR, +S1, +S2 - GI/Abdominal GI/Abdominal exam: Present: normal bowel sounds, soft. Absent: distended, tenderness - Extremities Exam Extremities exam: Present: normal inspection. Absent: joint swelling, pedal edema, tenderness - Back Exam Back exam: Present: normal inspection. Absent: paraspinal tenderness, vertebral tenderness - Neurological Exam Neurological exam: Present: alert, oriented X3, no focal deficits - Psychiatric Psychiatric exam: Present: normal affect, normal mood - Skin Skin exam: Present: dry, intact, normal color, warm Infectious Disease CN: Results - Labs CBC & Chem 7: 03/25/17 05:24 03/25/17 05:24 Serology: Serology 03/25/17 03/25/17 03/24/17 Range/Units 05:24 05:24 23:14 WBC 2.8 L (4.3-11.1) K/mcL RBC 3.31 L (3.82-4.97) M/mcL Hgb 9.7 L D (11.5-15.4) g/dL Hct 30.1 L (35.3-44.9) % MCV 90.9 (83.0-100.0) fL MCH 29.3 (28.0-33.3) pg MCHC 32.2 (31.6-35.5) g/dL RDW 17.9 H (11.5-14.5) % Plt Count 99 L (140-400) K/mcL MPV 10.0 (9.4-12.4) fL Immature Gran % 0.4 (0-4) % Seg Neutrophils % 38.1 % Lymphocytes % 37.5 % Monocytes % 15.6 % Eosinophils % 7.3 % Basophils % 1.1 % Neutrophils # 1.1 L (1.6-8.9) K/mcL Lymphocytes # 1.1 (0.6-4.6) K/mcL Monocytes # 0.4 (0.0-1.3) K/mcL Eosinophils # 0.2 (0.0-0.6) K/mcL Basophils # 0.0 (0.0-0.2) K/mcL Platelet Estimate Slight Decrease L (Normal) Large Platelets (Not Present) Immature Plt Fraction 3.4 (1.1-6.1) % Polychromasia 1+ A (Not Present) Basophilic Stippling (Not Present) Anisocytosis 1+ A (Not Present) Microcytosis Present A (Not Present) Sodium 139 (136-145) mEq/L Potassium 3.2 L (3.5-4.5) mEq/L Chloride 108 (98-109) mEq/L Carbon Dioxide 24 (19-29) mEq/L BUN 7 (7-20) mg/dL Creatinine 0.59 (0.57-1.11) mg/dL Est GFR ( Amer) > 60 (> 60) Est GFR (Non-Af Amer) > 60 (> 60) BUN/Creatinine Ratio 12 (6-26) Glucose 104 H (70-99) mg/dL Calculated Osmolality 286 (280-300) Lactic Acid 1.0 (0.5-2.2) mmol/L Calcium 7.9 L (8.6-10.8) mg/dL Magnesium 1.6 (1.6-2.6) mg/dL Total Bilirubin (0.2-1.2) mg/dL Direct Bilirubin (0.0-0.5) mg/dL Indirect Bilirubin (0.0-1.2) mg/dL AST (5-34) Units/L ALT (0-55) Units/L Alkaline Phosphatase (38-126) Units/L Serum Total Protein (6.0-8.3) g/dL Albumin (3.5-5.0) g/dL Globulin (2.4-3.5) g/dL Albumin/Globulin Ratio (1.1-2.2) Lipase (8-78) Units/L Stl C. cayetanensis PCR (Not detect) Stool Rotavirus A PCR (Not detect) Stl Adenov F 40/41 PCR (Not detect) Stool Astrovirus (PCR) (Not detect) Stool Campylobacter PCR (Not detect) Stl C. diff Tox B Gene (Negative) Stl C. diff Tox A/B PCR (Not detect) Stool Cryptosporidium PCR (Not detect) Stl Sh Tox Pr E STEC PCR (Not detect) Stl Enterotoxigenic E PCR (Not detect) Stool EPEC (PCR) (Not detect) Stool EAEC (PCR) (Not detect) Stl E. histolytica PCR (Not detect) Stool Giardia Lamblia PCR (Not detect) Stool Salmonella PCR (Not detect) Stool Sapovirus (PCR) (Not detect) Stl P. shigelloides PCR (Not detect) Stl Shigella/EIEC PCR (Not detect) St Y.enterocolitica PCR (Not detect) Stool Vibrio (PCR) (Not detect) Stl Vibrio cholerae PCR (Not detect) Stl Norovirus GI/GII PCR (Not detect) Stl GI Panel (PCR) Com 03/24/17 03/24/17 03/24/17 Range/Units 23:14 23:14 22:25 WBC 2.7 L (4.3-11.1) K/mcL RBC 3.83 (3.82-4.97) M/mcL Hgb 11.4 L (11.5-15.4) g/dL Hct 35.0 L (35.3-44.9) % MCV 91.4 (83.0-100.0) fL MCH 29.8 (28.0-33.3) pg MCHC 32.6 (31.6-35.5) g/dL RDW 18.1 H (11.5-14.5) % Plt Count 104 L (140-400) K/mcL MPV 10.0 (9.4-12.4) fL Immature Gran % 0.4 (0-4) % Seg Neutrophils % 47.2 % Lymphocytes % 33.2 % Monocytes % 13.6 % Eosinophils % 4.5 % Basophils % 1.1 % Neutrophils # 1.3 L (1.6-8.9) K/mcL Lymphocytes # 0.9 (0.6-4.6) K/mcL Monocytes # 0.4 (0.0-1.3) K/mcL Eosinophils # 0.1 (0.0-0.6) K/mcL Basophils # 0.0 (0.0-0.2) K/mcL Platelet Estimate (Normal) Large Platelets Present A (Not Present) Immature Plt Fraction (1.1-6.1) % Polychromasia (Not Present) Basophilic Stippling 1+ A (Not Present) Anisocytosis (Not Present) Microcytosis (Not Present) Sodium 138 (136-145) mEq/L Potassium 3.2 L (3.5-4.5) mEq/L Chloride 104 (98-109) mEq/L Carbon Dioxide 24 (19-29) mEq/L BUN 8 (7-20) mg/dL Creatinine 0.70 (0.57-1.11) mg/dL Est GFR ( Amer) > 60 (> 60) Est GFR (Non-Af Amer) > 60 (> 60) BUN/Creatinine Ratio 11 (6-26) Glucose 111 H (70-99) mg/dL Calculated Osmolality 285 (280-300) Lactic Acid (0.5-2.2) mmol/L Calcium 9.1 (8.6-10.8) mg/dL Magnesium (1.6-2.6) mg/dL Total Bilirubin 0.5 (0.2-1.2) mg/dL Direct Bilirubin 0.2 (0.0-0.5) mg/dL Indirect Bilirubin 0.3 (0.0-1.2) mg/dL AST 17 (5-34) Units/L ALT 12 (0-55) Units/L Alkaline Phosphatase 58 (38-126) Units/L Serum Total Protein 7.3 (6.0-8.3) g/dL Albumin 3.8 (3.5-5.0) g/dL Globulin 3.5 (2.4-3.5) g/dL Albumin/Globulin Ratio 1.1 (1.1-2.2) Lipase 6 L (8-78) Units/L Stl C. cayetanensis PCR (Not detect) Stool Rotavirus A PCR (Not detect) Stl Adenov F 40/41 PCR (Not detect) Stool Astrovirus (PCR) (Not detect) Stool Campylobacter PCR (Not detect) Stl C. diff Tox B Gene Positive (Negative) Stl C. diff Tox A/B PCR (Not detect) Stool Cryptosporidium PCR (Not detect) Stl Sh Tox Pr E STEC PCR (Not detect) Stl Enterotoxigenic E PCR (Not detect) Stool EPEC (PCR) (Not detect) Stool EAEC (PCR) (Not detect) Stl E. histolytica PCR (Not detect) Stool Giardia Lamblia PCR (Not detect) Stool Salmonella PCR (Not detect) Stool Sapovirus (PCR) (Not detect) Stl P. shigelloides PCR (Not detect) Stl Shigella/EIEC PCR (Not detect) St Y.enterocolitica PCR (Not detect) Stool Vibrio (PCR) (Not detect) Stl Vibrio cholerae PCR (Not detect) Stl Norovirus GI/GII PCR (Not detect) Stl GI Panel (PCR) Com 03/24/17 Range/Units 22:25 WBC (4.3-11.1) K/mcL RBC (3.82-4.97) M/mcL Hgb (11.5-15.4) g/dL Hct (35.3-44.9) % MCV (83.0-100.0) fL MCH (28.0-33.3) pg MCHC (31.6-35.5) g/dL RDW (11.5-14.5) % Plt Count (140-400) K/mcL MPV (9.4-12.4) fL Immature Gran % (0-4) % Seg Neutrophils % % Lymphocytes % % Monocytes % % Eosinophils % % Basophils % % Neutrophils # (1.6-8.9) K/mcL Lymphocytes # (0.6-4.6) K/mcL Monocytes # (0.0-1.3) K/mcL Eosinophils # (0.0-0.6) K/mcL Basophils # (0.0-0.2) K/mcL Platelet Estimate (Normal) Large Platelets (Not Present) Immature Plt Fraction (1.1-6.1) % Polychromasia (Not Present) Basophilic Stippling (Not Present) Anisocytosis (Not Present) Microcytosis (Not Present) Sodium (136-145) mEq/L Potassium (3.5-4.5) mEq/L Chloride (98-109) mEq/L Carbon Dioxide (19-29) mEq/L BUN (7-20) mg/dL Creatinine (0.57-1.11) mg/dL Est GFR ( Amer) (> 60) Est GFR (Non-Af Amer) (> 60) BUN/Creatinine Ratio (6-26) Glucose (70-99) mg/dL Calculated Osmolality (280-300) Lactic Acid (0.5-2.2) mmol/L Calcium (8.6-10.8) mg/dL Magnesium (1.6-2.6) mg/dL Total Bilirubin (0.2-1.2) mg/dL Direct Bilirubin (0.0-0.5) mg/dL Indirect Bilirubin (0.0-1.2) mg/dL AST (5-34) Units/L ALT (0-55) Units/L Alkaline Phosphatase (38-126) Units/L Serum Total Protein (6.0-8.3) g/dL Albumin (3.5-5.0) g/dL Globulin (2.4-3.5) g/dL Albumin/Globulin Ratio (1.1-2.2) Lipase (8-78) Units/L Stl C. cayetanensis PCR Not detected (Not detect) Stool Rotavirus A PCR Not detected (Not detect) Stl Adenov F 40/41 PCR Not detected (Not detect) Stool Astrovirus (PCR) Not detected (Not detect) Stool Campylobacter PCR Not detected (Not detect) Stl C. diff Tox B Gene (Negative) Stl C. diff Tox A/B PCR See reflex test A (Not detect) Stool Cryptosporidium PCR Not detected (Not detect) Stl Sh Tox Pr E STEC PCR Not detected (Not detect) Stl Enterotoxigenic E PCR Not detected (Not detect) Stool EPEC (PCR) Not detected (Not detect) Stool EAEC (PCR) Not detected (Not detect) Stl E. histolytica PCR Not detected (Not detect) Stool Giardia Lamblia PCR Not detected (Not detect) Stool Salmonella PCR Not detected (Not detect) Stool Sapovirus (PCR) Not detected (Not detect) Stl P. shigelloides PCR Not detected (Not detect) Stl Shigella/EIEC PCR Not detected (Not detect) St Y.enterocolitica PCR Not detected (Not detect) Stool Vibrio (PCR) Not detected (Not detect) Stl Vibrio cholerae PCR Not detected (Not detect) Stl Norovirus GI/GII PCR Not detected (Not detect) Stl GI Panel (PCR) Com See below Consult Discharge Plan - Plan Referrals: Mohini Franco CNP [Primary Care Provider] - - Attending Attestation I examined this patient and my medical decision-making was reviewed with the [employer] LOAN PROCESSOR/PA/Advanced Practice Nurse/Resident Physician. I agree with the documented findings, disposition and treatment plan as described except to the extent set forth below. This is an addendum to original report dictated by Luisa Pimentel CNP, please refer to Edel robert for full detail. Patient with past medical history mentioned below has been having recurrent C. difficile. Patient has had 2 previous C. difficile positive in the past and currently she tells me that shes had about 10 watery bowel movements. When Luisa saw the patient earlier she is ready had 3 or 4 bowel movements. On further questioning patient tells me that she has is chronic fullness and pressure sensation in the suprapubic area. She states that is unchanged and she has no other symptoms. Labs reviewed imaging noted. At this point patient does have C. difficile that is recurrent 2. Patient cannot afford oral vancomycin. We will continue oral vancomycin with a tapering dose over 6 weeks. Maybe if we stop the licensed master social worker we can get her the liquid form which is much cheaper than the pill form. I dont believe she has a UTI, possible asymptomatic bacteriuria, because of her C. difficile I really would stop the fluoroquinolone and observe. If patient s is having worsening symptoms or signs of sepsis or pyelonephritis well restart antibiotics. Patient might benefit from Heme/Onc evaluation since she is leukopenic.
[2017-03-25] MEDS: *HR* HYDROmorphone (PF) 1 MG/ML SYRINGE IVP PRN ×2 (14:29→18:30)
[2017-03-25] MEDS: 0.9 % Sodium Chloride 1,000 ML IVC SCH (14:31)
[2017-03-25 16:13] LABS: Bilirubin,Urine Negative (Negative); Blood,Urine Negative (Negative); Clarity,Urine Clear (Clear); Color,Urine Yellow (Yellow); Glucose,Urine (UA) Normal (Normal); Ketones,Urine Negative (Negative); Leukocyte Esterase,Urine Small (Negative); Nitrite,Urine Negative (Negative); PH,Urine 6.5 pH Units (5.0-8.0); Protein,Urine Negative (Neg-Trace); Specific Gravity,Urine 1.006 (1.010-1.025); Urobilinogen,Urine Normal (Normal)
[2017-03-25 16:15] LABS: Bacteria,Urine None Seen per hpf (None-Few); Hyaline Casts,Urine None Seen per lpf (None-Few); RBC,Urine 0-3 per hpf (0-3); Squamous Epithelial Cell,Urine Moderate per lpf (None-Few)
[2017-03-25] MEDS: Famotidine 20 MG TABLET PO SCH (22:00)
[2017-03-25] MEDS: traZODone 50 MG TABLET PO SCH (22:00)
[2017-03-25] MEDS: Potassium Chloride Elixir 20 MEQ/15 ML UDC PO SCH (22:00)
[2017-03-26 06:01] LABS: Hematocrit 32.2 % (35.3-44.9); Hemoglobin 10.4 g/dL (11.5-15.4); Mean Corpuscular HGB Conc 32.3 g/dL (31.6-35.5); Mean Corpuscular Hemoglobin 29.7 pg (28.0-33.3); Mean Platelet Volume 10.2 fL (9.4-12.4); Platelet Count 120 K/mcL (140-400); Red Cell Distribution Width 17.9 % (11.5-14.5)
[2017-03-26 06:19] LABS: BUN/Creatinine Ratio 8 (6-26); Calcium 8.3 mg/dL (8.6-10.8); Carbon Dioxide 25 mEq/L (19-29); Chloride 112 mEq/L (98-109); Glucose 95 mg/dL (70-99); Osmolality,Calculated 295 (280-300); Potassium 3.8 mEq/L (3.5-4.5); Sodium 144 mEq/L (136-145); eGFR For African Americans > 60 (> 60); eGFR For Non-African Americans > 60 (> 60)
[2017-03-26 06:20] LABS: Blood Urea Nitrogen 5 mg/dL (7-20)
[2017-03-26] MEDS: Aspirin 81 MG TAB.CHEW PO SCH (07:44)
[2017-03-26] MEDS: Lactobacillus 1 EACH CAP.SPRINK PO SCH ×2 (07:44→23:14)
[2017-03-26] MEDS: Letrozole 2.5 MG TABLET PO SCH (07:44)
[2017-03-26] MEDS: Vancomycin Oral Soln 250 MG/2.5 ML UDC PO SCH ×4 (07:45→23:13)
[2017-03-26] MEDS: Potassium Chloride Elixir 20 MEQ/15 ML UDC PO SCH ×2 (07:45→23:14)
[2017-03-26] MEDS: Famotidine 20 MG TABLET PO SCH ×2 (07:45→23:14)
[2017-03-26] MEDS: *HR* HYDROmorphone (PF) 1 MG/ML SYRINGE IVP PRN ×3 (07:46→23:19)
[2017-03-26] MEDS: 0.9 % Sodium Chloride 1,000 ML IVC SCH (14:47)
--- NOTE | 2017-03-26 15:20 | Infectious Disease Progress No ---
Date of Encounter: 03/26/17 Time of Encounter: 15:18 - Assessment and Plan (1) Clostridium difficile infection Current Visit: Yes Status: Acute C. diff positive. Mild/moderate. Recurrent - likely secondary to immunosuppression and recent antibiotic use. Previously treated with a 28 day course of oral Vanc and Flagyl. CT of the abdomen and pelvis shows diffuse colonic wall thickening that is improved since the previous study. Continue Vanc PO 125mmg QID. Continue probiotic. Continue contact/C. diff precautions. Consult social insurance administrator to assist with medication costs on discharge. Would recommend liquid Vancomycin on discharge as it tends to be cheaper. Duration of treatment depends on the clinical picture, but the patient would likely benefit from a prolonged Vancomycin taper. (2) UTI (urinary tract infection) Current Visit: No Status: Resolved UTI vs. asymptomatic bacteriuria. Urine culture is growing GNR from [facility], but repeat urine culture here is negative. Recommend avoiding any more antibiotics. Cipro discontinued 03/25/17. Qualifiers: Urinary tract infection type: site unspecified Hematuria presence: without hematuria Qualified Code(s): N39.0 - Urinary tract infection, site not specified (3) Pancytopenia Current Visit: Yes Status: Acute Review of previous labs indicate this is new. Etiology unclear: chemo vs. infection vs. other. Consider Hem/Onc consult to evaluate. Continue to monitor closely. (4) Hypokalemia Current Visit: Yes Status: Resolved Likely related to GI loss from diarrhea. Management per the primary team. Resolved. (5) Breast cancer, stage 4 Current Visit: Yes Status: Chronic Originally diagnosed in 1996 with recurrence in 1997. Surveillance imaging 2015 showed new lung mets. Currently on oral Ribocidib (21 days on, 7 days off) and letrozole (daily). Follows with Dr. Muse with the [facility]. Qualifiers: Laterality: left Qualified Code(s): C50.912 - Malignant neoplasm of unspecified site of left female breast (6) Cancer associated pain Current Visit: No Status: Acute Secondary to bone mets. Management per the primary team. - Subjective Interval history: Patient seen and examined. No acute events noted overnight. Patient states that overall she feels okay today. She denies any fevers, chills, or rigors. She denies any chest pain, shortness of breath, or cough. She does report chronic pain to her bilateral shoulders, pelvis, and legs. She denies any new pain. She denies any nausea, vomiting, or constipation. She does report for loose watery stools this morning, but states it appears to be more formed. She denies any acute urinary complaints. She does report some mild suprapubic abdominal pain associated with her diarrhea. She describes the pain as pressure. She continues to report bowel incontinence. She denies any oral thrush or new skin lesions. Infect Dis PN-Objective Data - Labs CBC & Chem 7: 03/26/17 05:28 03/26/17 05:28 Labs: Laboratory Results - last 24 hr 03/25/17 03/26/17 03/26/17 16:00 05:28 05:28 WBC 2.9 L RBC 3.50 L Hgb 10.4 L Hct 32.2 L MCV 92.0 MCH 29.7 MCHC 32.3 RDW 17.9 H Plt Count 120 L MPV 10.2 Sodium 144 Potassium 3.8 Chloride 112 H Carbon Dioxide 25 BUN 5 L Creatinine 0.61 Est GFR ( Amer) > 60 Est GFR (Non-Af Amer) > 60 BUN/Creatinine Ratio 8 Glucose 95 Calculated Osmolality 295 Calcium 8.3 L Urine Color Yellow Urine Clarity Clear Urine pH 6.5 Ur Specific [place] 1.006 L Urine Protein Negative Urine Glucose (UA) Normal Urine Ketones Negative Urine Blood Negative Urine Nitrite Negative Urine Bilirubin Negative Urine Urobilinogen Normal Ur Leukocyte Esterase Small H Urine Microscopic RBC 0-3 Urine Microscopic WBC 3-5 H Ur Squamous Epith Cells Moderate H Urine Bacteria None Seen Hyaline Casts None Seen Ur Culture Indicated? YES A Stool Occult Blood 03/26/17 10:00 WBC RBC Hgb Hct MCV MCH MCHC RDW Plt Count MPV Sodium Potassium Chloride Carbon Dioxide BUN Creatinine Est GFR ( Amer) Est GFR (Non-Af Amer) BUN/Creatinine Ratio Glucose Calculated Osmolality Calcium Urine Color Urine Clarity Urine pH Ur Specific [place] Urine Protein Urine Glucose (UA) Urine Ketones Urine Blood Urine Nitrite Urine Bilirubin Urine Urobilinogen Ur Leukocyte Esterase Urine Microscopic RBC Urine Microscopic WBC Ur Squamous Epith Cells Urine Bacteria Hyaline Casts Ur Culture Indicated? Stool Occult Blood Negative Cultures: Cultures 03/25/17 16:00 Urine Culture - Final Urine,Clean Catch No growth. Serology 03/26/17 03/25/17 Range/Units 10:00 16:00 Urine Color Yellow (Yellow) Urine Clarity Clear (Clear) Urine pH 6.5 (5.0-8.0) pH Units Ur Specific [place] 1.006 L (1.010-1.025) Urine Protein Negative (Neg-Trace) mg/dL Urine Glucose (UA) Normal (Normal) mg/dL Urine Ketones Negative (Negative) mg/dL Urine Blood Negative (Negative) Urine Nitrite Negative (Negative) Urine Bilirubin Negative (Negative) Urine Urobilinogen Normal (Normal) mg/dL Ur Leukocyte Esterase Small H (Negative) Urine Microscopic RBC 0-3 (0-3) per hpf Urine Microscopic WBC 3-5 H (0-3) per hpf Ur Squamous Epith Cells Moderate H (None-Few) per lpf Urine Bacteria None Seen (None-Few) per hpf Hyaline Casts None Seen (None-Few) per lpf Ur Culture Indicated? YES A (NO) Stool Occult Blood Negative (Negative) Exam - Constitutional Vitals: Temp Pulse Resp BP Pulse Ox 97.9 F 59 17 137/73 96 03/26/17 12:24 03/26/17 12:24 03/26/17 12:24 03/26/17 12:24 03/26/17 12:24 General appearance: average body habitus, cooperative, no acute distress - Head Head exam: Present: atraumatic, normal inspection, normocephalic - Eye Eye exam: Present: EOMI, normal appearance, PERRL Pupils: Present: normal accommodation - ENT ENT exam: Present: mucous membranes moist - Neck Neck exam: Present: normal inspection - Respiratory Respiratory exam: Present: CTAB. Absent: rales, respiratory distress, rhonchi, wheezes - Cardiovascular Cardiovascular exam: Present: RRR, +S1, +S2 - GI/Abdominal GI/Abdominal exam: Present: normal bowel sounds, soft. Absent: distended, tenderness - Extremities Exam Extremities exam: Present: normal inspection. Absent: joint swelling, pedal edema, tenderness - Neurological Exam Neurological exam: Present: alert, oriented X3, no focal deficits - Psychiatric Psychiatric exam: Present: normal affect, normal mood - Skin Skin exam: Present: dry, intact, normal color, warm Consult Discharge Plan - Plan Referrals: Mohini Franco, STRINGS TEACHER [Primary Care Provider] - - Attending Attestation I examined this patient and my medical decision-making was reviewed with the FREIGHT SOLICITOR/PA/Advanced Practice Nurse/Resident Physician. I agree with the documented findings, disposition and treatment plan as described except to the extent set forth below.
--- NOTE | 2017-03-26 16:39 | Internal Med Progress Note ---
Date of Encounter: 03/26/17 Time of Encounter: 12:55 - Assessment and plan (1) C. difficile colitis Current Visit: Yes Status: Acute Assessment and plan: Untreated infection versus second relapse. Infectious diseases follow-up appreciated. Continue oral vancomycin 125 mg 4 times a day, plan for prolonged taper as an outpatient, for 6 weeks. Continue probiotics, IV hydration and supportive care. Diet as tolerated. (2) Lymphedema of upper extremity Current Visit: Yes Status: Chronic Assessment and plan: Secondary to left breast cancer, mastectomy. (3) Carcinoma of breast metastatic to bone Current Visit: Yes Status: Chronic Qualifiers: Laterality: left Qualified Code(s): C50.912 - Malignant neoplasm of unspecified site of left female breast; C79.51 - Secondary malignant neoplasm of bone (4) UTI (urinary tract infection) Current Visit: Yes Status: Ruled-out Assessment and plan: Has been on ciprofloxacin. Urine culture shows no growth. Will discontinue ciprofloxacin at this time. Qualifiers: Urinary tract infection type: site unspecified Hematuria presence: without hematuria Qualified Code(s): N39.0 - Urinary tract infection, site not specified (5) Hypokalemia Current Visit: Yes Status: Resolved Assessment and plan: Improved with potassium chloride supplements. (6) Leucopenia Current Visit: Yes Status: Acute Assessment and plan: Likely related to underlying infection. Will require outpatient follow-up in hematology referral for persistent leukopenia. Qualifiers: Leukopenia type: unspecified Qualified Code(s): D72.819 - Decreased white blood cell count, unspecified - Subjective Interval history: Diarrhea is somewhat improved, beginning to have slightly formed stools although she continues to have multiple bowel movements per day. No nausea, vomiting but does have abdominal cramps associated with diarrhea. - Constitutional Vitals: Temp Pulse Resp BP Pulse Ox 97.9 F 59 17 137/73 96 03/26/17 12:24 03/26/17 12:24 03/26/17 12:24 03/26/17 12:24 03/26/17 12:24 General appearance: Present: A&O X 3, answers questions appropriately - Respiratory Respiratory exam: Present: CTAB. Absent: accessory muscle use, rales, rhonchi, wheezes - Cardiovascular Cardiovascular exam: Present: RRR, +S1, +S2. Absent: diastolic murmur, gallop, rubs, systolic murmur - GI/Abdominal GI/Abdominal exam: Present: normal bowel sounds, soft (Mild tenderness in left and right lower quadrants), no peritoneal signs. Absent: distended, tenderness Internal Medicine: Result - Labs CBC & Chem 7: 03/26/17 05:28 03/26/17 05:28 Labs: Short CBC 03/26/17 Range/Units 05:28 WBC 2.9 L (4.3-11.1) K/mcL Hgb 10.4 L (11.5-15.4) g/dL Hct 32.2 L (35.3-44.9) % Plt Count 120 L (140-400) K/mcL BMP 03/26/17 05:28 Sodium 144 Potassium 3.8 Chloride 112 H Carbon Dioxide 25 BUN 5 L Creatinine 0.61 Glucose 95 Calcium 8.3 L Consult Discharge Plan - Plan Referrals: Mohini Franco, PEER SUPPORT SPECIALIST [Primary Care Provider] -
[2017-03-26] MEDS: *HR* LORazepam 0.5 MG TABLET PO PRN (16:50)
[2017-03-27] MEDS: Aspirin 81 MG TAB.CHEW PO SCH (08:36)
[2017-03-27] MEDS: Letrozole 2.5 MG TABLET PO SCH (08:36)
[2017-03-27] MEDS: Famotidine 20 MG TABLET PO SCH ×2 (08:36→21:01)
[2017-03-27] MEDS: Vancomycin Oral Soln 250 MG/2.5 ML UDC PO SCH ×4 (08:36→21:00)
[2017-03-27] MEDS: Potassium Chloride Elixir 20 MEQ/15 ML UDC PO SCH ×2 (08:36→21:00)
[2017-03-27] MEDS: Lactobacillus 1 EACH CAP.SPRINK PO SCH ×2 (08:37→21:01)
[2017-03-27] MEDS: 0.9 % Sodium Chloride 1,000 ML IVC SCH (08:41)
[2017-03-27] MEDS: *HR* HYDROmorphone (PF) 1 MG/ML SYRINGE IVP PRN ×3 (08:44→21:03)
[2017-03-27 09:46] LABS: Basophils # 0.1 K/mcL (0.0-0.2); Basophils % 2.1 %; Eosinophils # 0.3 K/mcL (0.0-0.6); Eosinophils % 11.2 %; Hemoglobin 11.5 g/dL (11.5-15.4); Immature Granulocytes % 0.4 % (0-4); Lymphocytes % 35.1 %; Mean Corpuscular HGB Conc 31.9 g/dL (31.6-35.5); Mean Corpuscular Hemoglobin 29.4 pg (28.0-33.3); Mean Corpuscular Volume 92.1 fL (83.0-100.0); Mean Platelet Volume 9.5 fL (9.4-12.4); Monocytes # 0.3 K/mcL (0.0-1.3); Monocytes % 10.5 %; Neutrophils # 1.2 K/mcL (1.6-8.9); Platelet Count 157 K/mcL (140-400); Red Blood Count 3.91 M/mcL (3.82-4.97); Red Cell Distribution Width 17.8 % (11.5-14.5); Segmented Neutrophils % 40.7 %
[2017-03-27 10:00] LABS: BUN/Creatinine Ratio 6 (6-26); Calcium 8.9 mg/dL (8.6-10.8); Carbon Dioxide 29 mEq/L (19-29); Chloride 105 mEq/L (98-109); Glucose 95 mg/dL (70-99); Osmolality,Calculated 289 (280-300); Potassium 4.1 mEq/L (3.5-4.5); Sodium 141 mEq/L (136-145); eGFR For African Americans > 60 (> 60); eGFR For Non-African Americans > 60 (> 60)
[2017-03-27 10:02] LABS: Blood Urea Nitrogen 4 mg/dL (7-20)
--- NOTE | 2017-03-27 11:30 | Infectious Disease Progress No ---
Date of Encounter: 03/27/17 Time of Encounter: 11:27 - Assessment and Plan (1) Clostridium difficile infection Current Visit: Yes Status: Acute C. diff positive. Mild/moderate. Recurrent - likely secondary to immunosuppression and recent antibiotic use. Previously treated with a 28 day course of oral Vanc and Flagyl. CT of the abdomen and pelvis shows diffuse colonic wall thickening that is improved since the previous study. Continue Vanc PO 125mmg QID. Continue probiotic. Continue contact/C. diff precautions. The patient reports that clinically she is not much better and continues to have multiple, small, watery stools per day. She was originally on Cipro for 24 hours, which could be contributing to the patient's delayed response to treatment. Would recommend continuing current regimen and monitoring for improvement over the next 24-48 hours. Consult social media content specialist to assist with medication costs on discharge. Would recommend liquid Vancomycin on discharge as it tends to be cheaper. Duration of treatment depends on the clinical picture, but the patient would likely benefit from a prolonged Vancomycin taper. (2) UTI (urinary tract infection) Current Visit: Yes Status: Ruled-out UTI vs. asymptomatic bacteriuria. Urine culture is growing GNR from [facility], but repeat urine culture here is negative. Recommend avoiding any more antibiotics. Cipro discontinued 03/25/17. Qualifiers: Urinary tract infection type: site unspecified Hematuria presence: without hematuria Qualified Code(s): N39.0 - Urinary tract infection, site not specified (3) Pancytopenia Current Visit: Yes Status: Acute Review of previous labs indicate this is new. Etiology unclear: chemo vs. infection vs. other. Consider Hem/Onc consult to evaluate. Continue to monitor closely. (4) Hypokalemia Current Visit: Yes Status: Resolved Likely related to GI loss from diarrhea. Management per the primary team. Resolved. (5) Breast cancer, stage 4 Current Visit: Yes Status: Chronic Originally diagnosed in 1996 with recurrence in 1997. Surveillance imaging 2016 showed new lung mets. Currently on oral Ribocidib (21 days on, 7 days off) and letrozole (daily). Follows with Dr. Muse with the [facility]. Qualifiers: Laterality: left Qualified Code(s): C50.912 - Malignant neoplasm of unspecified site of left female breast (6) Cancer associated pain Current Visit: No Status: Acute Secondary to bone mets. Management per the primary team. - Subjective Interval history: Patient seen and examined. No acute events noted overnight. Patient states that overall she feels okay today, but states she had 15 small, loose watery sools yesterday and has had six since midnight today. She denies any fevers, chills, or rigors. She denies any chest pain, shortness of breath, or cough. She does report chronic pain to her bilateral shoulders, pelvis, and legs. She denies any nausea, vomiting, or constipation. She states her BMs are small, but frequent. She denies any acute urinary complaints. She does report some mild suprapubic abdominal pain associated with her diarrhea. She describes the pain as pressure. She continues to report bowel incontinence. She denies any oral thrush or new skin lesions. Infect Dis PN-Objective Data - Labs CBC & Chem 7: 03/27/17 09:40 03/27/17 09:40 Labs: Laboratory Results - last 24 hr 03/27/17 03/27/17 09:40 09:40 WBC 2.9 L RBC 3.91 Hgb 11.5 Hct 36.0 MCV 92.1 MCH 29.4 MCHC 31.9 RDW 17.8 H Plt Count 157 MPV 9.5 Immature Gran % 0.4 Seg Neutrophils % 40.7 Lymphocytes % 35.1 Monocytes % 10.5 Eosinophils % 11.2 Basophils % 2.1 Neutrophils # 1.2 L Lymphocytes # 1.0 Monocytes # 0.3 Eosinophils # 0.3 Basophils # 0.1 Sodium 141 Potassium 4.1 Chloride 105 Carbon Dioxide 29 BUN 4 L Creatinine 0.64 Est GFR ( Amer) > 60 Est GFR (Non-Af Amer) > 60 BUN/Creatinine Ratio 6 Glucose 95 Calculated Osmolality 289 Calcium 8.9 Cultures: Cultures 03/25/17 16:00 Urine Culture - Final Urine,Clean Catch No growth. Serology 03/26/17 03/25/17 Range/Units 10:00 16:00 Urine Color Yellow (Yellow) Urine Clarity Clear (Clear) Urine pH 6.5 (5.0-8.0) pH Units Ur Specific [place] 1.006 L (1.010-1.025) Urine Protein Negative (Neg-Trace) mg/dL Urine Glucose (UA) Normal (Normal) mg/dL Urine Ketones Negative (Negative) mg/dL Urine Blood Negative (Negative) Urine Nitrite Negative (Negative) Urine Bilirubin Negative (Negative) Urine Urobilinogen Normal (Normal) mg/dL Ur Leukocyte Esterase Small H (Negative) Urine Microscopic RBC 0-3 (0-3) per hpf Urine Microscopic WBC 3-5 H (0-3) per hpf Ur Squamous Epith Cells Moderate H (None-Few) per lpf Urine Bacteria None Seen (None-Few) per hpf Hyaline Casts None Seen (None-Few) per lpf Ur Culture Indicated? YES A (NO) Stool Occult Blood Negative (Negative) Exam - Constitutional Vitals: Temp Pulse Resp BP Pulse Ox 98.0 F 65 16 143/73 95 03/27/17 06:41 03/27/17 06:41 03/27/17 06:41 03/27/17 06:41 03/27/17 08:44 General appearance: average body habitus, cooperative, no acute distress - Head Head exam: Present: atraumatic, normal inspection, normocephalic - Eye Eye exam: Present: EOMI, normal appearance, PERRL Pupils: Present: normal accommodation - ENT ENT exam: Present: mucous membranes moist - Neck Neck exam: Present: normal inspection - Respiratory Respiratory exam: Present: CTAB. Absent: rales, respiratory distress, rhonchi, wheezes - Cardiovascular Cardiovascular exam: Present: RRR, +S1, +S2 - GI/Abdominal GI/Abdominal exam: Present: normal bowel sounds, soft, tenderness (generalized) . Absent: distended - Extremities Exam Extremities exam: Present: normal inspection. Absent: joint swelling, pedal edema, tenderness - Neurological Exam Neurological exam: Present: alert, oriented X3, no focal deficits - Psychiatric Psychiatric exam: Present: normal affect, normal mood - Skin Skin exam: Present: dry, intact, normal color, warm Consult Discharge Plan - Plan Referrals: Mohini Franco, FRICTION SAW OPERATOR [Primary Care Provider] - - Attending Attestation I examined this patient and my medical decision-making was reviewed with the HOSTESS CASHIER/PA/Advanced Practice Nurse/Resident Physician. I agree with the documented findings, disposition and treatment plan as described except to the extent set forth below.
[2017-03-27] MEDS: *HR* LORazepam 0.5 MG TABLET PO PRN ×2 (12:52→21:02)
--- NOTE | 2017-03-27 14:23 | Internal Med Progress Note ---
Date of Encounter: 03/27/17 Time of Encounter: 11:15 - Assessment and plan (1) C. difficile colitis Current Visit: Yes Status: Acute Assessment and plan: Untreated infection versus second relapse. Infectious diseases follow-up appreciated. Continue oral vancomycin 125 mg 4 times a day- day 3, plan for prolonged taper as an outpatient, for 6 weeks. Continue probiotics, IV hydration and supportive care. Diet as tolerated. (2) Lymphedema of upper extremity Current Visit: Yes Status: Chronic (3) Carcinoma of breast metastatic to bone Current Visit: Yes Status: Chronic Qualifiers: Laterality: left Qualified Code(s): C50.912 - Malignant neoplasm of unspecified site of left female breast; C79.51 - Secondary malignant neoplasm of bone (4) UTI (urinary tract infection) Current Visit: Yes Status: Ruled-out Qualifiers: Urinary tract infection type: site unspecified Hematuria presence: without hematuria Qualified Code(s): N39.0 - Urinary tract infection, site not specified (5) Hypokalemia Current Visit: Yes Status: Resolved (6) Leucopenia Current Visit: Yes Status: Acute Assessment and plan: Likely related to underlying infection. Will require outpatient follow-up in hematology referral for persistent leukopenia. Qualifiers: Leukopenia type: unspecified Qualified Code(s): D72.819 - Decreased white blood cell count, unspecified - Subjective Interval history: Patient is noted to be irritable and upset today as she reports her diarrhea is back. Reports constantly having watery bowel movements along with frequent urination. No nausea, vomiting but continues to have abdominal cramps. - Constitutional Vitals: Temp Pulse Resp BP Pulse Ox 98.0 F 65 16 143/73 95 03/27/17 06:41 03/27/17 06:41 03/27/17 06:41 03/27/17 06:41 03/27/17 08:44 General appearance: Present: A&O X 3, answers questions appropriately - Respiratory Respiratory exam: Present: CTAB. Absent: accessory muscle use, rales, rhonchi, wheezes - Cardiovascular Cardiovascular exam: Present: RRR, +S1, +S2. Absent: diastolic murmur, gallop, rubs, systolic murmur - GI/Abdominal GI/Abdominal exam: Present: normal bowel sounds, soft (Tenderness in lower abdomen), no peritoneal signs. Absent: distended, tenderness - Extremities Exam Extremities exam: Present: full ROM, warm, radial pulses palpable and symetrical. Absent: calf tenderness, cyanotic, pedal edema - Neurological Exam Neurological exam: Present: CN II-XII intact, oriented X3, no focal deficits. Absent: pronater drift, facial droop, speech deficit Internal Medicine: Result - Labs CBC & Chem 7: 03/27/17 09:40 03/27/17 09:40 Labs: Short CBC 03/27/17 Range/Units 09:40 WBC 2.9 L (4.3-11.1) K/mcL Hgb 11.5 (11.5-15.4) g/dL Hct 36.0 (35.3-44.9) % Plt Count 157 (140-400) K/mcL Neutrophils # 1.2 L (1.6-8.9) K/mcL BMP 03/27/17 09:40 Sodium 141 Potassium 4.1 Chloride 105 Carbon Dioxide 29 BUN 4 L Creatinine 0.64 Glucose 95 Calcium 8.9 Consult Discharge Plan - Plan Referrals: Mohini Franco LANG INTERPRETER [Primary Care Provider] -
[2017-03-27] MEDS: traZODone 50 MG TABLET PO SCH (21:02)
[2017-03-28] MEDS: *HR* HYDROmorphone (PF) 1 MG/ML SYRINGE IVP PRN (09:03)
[2017-03-28] MEDS: Potassium Chloride Elixir 20 MEQ/15 ML UDC PO SCH (09:03)
[2017-03-28] MEDS: Vancomycin Oral Soln 250 MG/2.5 ML UDC PO SCH ×2 (09:03→12:36)
[2017-03-28] MEDS: Letrozole 2.5 MG TABLET PO SCH (09:04)
[2017-03-28] MEDS: Aspirin 81 MG TAB.CHEW PO SCH (09:04)
[2017-03-28] MEDS: Lactobacillus 1 EACH CAP.SPRINK PO SCH (09:04)
[2017-03-28] MEDS: Famotidine 20 MG TABLET PO SCH (09:05)
[2017-03-28 15:06] VITALS: BP 160/94
--- NOTE | 2017-03-28 15:45 | Discharge Summary ---
Date of Encounter: 03/28/17 Time of Encounter: 12:00 - Discharge Diagnosis (1) C. difficile colitis Priority: Primary Status: Acute (2) Lymphedema of upper extremity Priority: Secondary Status: Chronic (3) Carcinoma of breast metastatic to bone Priority: Secondary Status: Chronic Qualifiers: Laterality: left Qualified Code(s): C50.912 - Malignant neoplasm of unspecified site of left female breast; C79.51 - Secondary malignant neoplasm of bone (4) UTI (urinary tract infection) Priority: Primary Status: Ruled-out Qualifiers: Urinary tract infection type: site unspecified Hematuria presence: without hematuria Qualified Code(s): N39.0 - Urinary tract infection, site not specified (5) Hypokalemia Priority: Primary Status: Resolved (6) Leucopenia Priority: Secondary Status: Acute Qualifiers: Leukopenia type: unspecified Qualified Code(s): D72.819 - Decreased white blood cell count, unspecified - Discharge Medications Prescriptions: Lactobacillus [Culturelle] 1 each PO BID #60 cap.sprink Home Medications: Sertraline [Zoloft] 150 mg PO DAILY 10/10/15 [History] Fluticasone Propionate Nasal [Flonase] 1 spray NS DAILY 01/18/17 [History] LORazepam [Ativan] 0.5 mg PO TID PRN #90 tablet 02/07/17 [Rx] Calcium Carbonate/Vitamin D3 [Calcium 600-Vit D3 400 Tablet] 1 tab PO QDPC 02/21 [History] Aspirin 81 mg PO DAILY 03/24/17 [History] Atorvastatin Calcium [Lipitor] 20 mg PO DAILY 03/24/17 [History] Carvedilol [Coreg] 25 mg PO BID 03/24/17 [History] Potassium Chloride Elixir [Potassium Chloride] 20 meq PO BID #10 mls 03/24/17 [ Rx] Vancomycin HCl 125 mg PO QID #40 cap 03/24/17 [Rx] Albuterol Sulfate [Proair Hfa] 2 puff IH Q4H PRN 03/25/17 [History] Letrozole [Femara] 2.5 mg PO DAILY 03/25/17 [History] Multivitamin [One Daily Essential] 1 tab PO DAILY 03/25/17 [History] Pantoprazole Sodium [Protonix] 40 mg PO DAILY 03/25/17 [History] Ranitidine HCl [Zantac] 150 mg PO BID 03/25/17 [History] Ribociclib Succinate [Kisqali] 200 mg PO DAILY 03/25/17 [History] Trazodone HCl 100 mg PO HS 03/25/17 [History] Lactobacillus [Culturelle] 1 each PO BID #60 cap.sprink 03/28/17 [Rx] Allergies/Adverse Reactions: Allergies iodine Allergy (Unknown, Verified 02/16/17 20:05) Difficulty Breathing Iodinated Contrast- Oral and IV Dye [Iodinated Contrast Media - IV Dye] Allergy (Verified 02/16/17 20:05) Difficulty Breathing Opioids - Morphine Analogues Adverse Reaction (Unknown, Verified 02/16/17 20:05) Itching nausea watermelon Allergy (Unknown, Uncoded 02/16/17 20:05) Itching Date of admission: 03/25/17 05:00 Primary care physician: Mohini Franco CNP Consults: 03/25/17 05:04 Consult to Infectious Diseases [CONS] Routine Consulting Provider: [facility] Reason for Consult: C diff Diarrhea (Unresoved versus recurrent Call Completed: No 03/25/17 16:39 Consult to Occupational Therapy [CONS] Routine Comment: Evaluate, develop and implement POC Reason for Consult: May need rehab Consult to Physical Therapy [CONS] Routine Comment: Evaluate, develop and implement POC Reason for Consult: May need rehab, ambulation and strengthening Discharging clinician: Torrie Jaramillo Anticipated date of discharge: 03/28/17 - Patient Status Disposition: Home Health Service Condition: Fair Functional capacity at discharge: independent ambulation Overall status at discharge: patient is progressing back to baseline - Discharge Instructions Follow Up With: Mohini Franco CNP [Primary Care Provider] - 04/03/17 10:30 am - Diet and Activity Activity: resume usual activities as tolerated Diet: low fat, low cholesterol, low salt diet Hospital course: Ms. Lemons is a 67 year old female with the above medical problems who was admitted with persistent diarrhea. She was noted to have an untreated versus recurrence of Clostridium difficile infection and was started on oral vancomycin and IV Flagyl initially. She was given IV hydration and supportive care along with replacement of electrolytes. Infectious diseases was consulted and recommended to continue only oral vancomycin. Patient gradually improved on this regimen. She is now being discharged with 6 week course of pulse tapering vancomycin. She was unable to complete her outpatient oral vancomycin course at least twice in the recent past as her insurance would not cover the medication and she could not afford it. guest services manager has been on board and patient is being provided with a supply of vancomycin to adequately complete her course and is currently medically stable for discharge. - Time Spent with Patient Total time spent providing and/or coordinating discharge services: Greater than 30 minutes (40 min) - Constitutional Vitals: Temp Pulse Resp BP Pulse Ox 97.9 F 64 18 160/94 96 03/28/17 15:05 03/28/17 15:05 03/28/17 15:05 03/28/17 15:05 03/28/17 15:05 General appearance: Present: A&O X 3, answers questions appropriately - Cardiovascular Cardiovascular exam: Present: RRR, +S1, +S2. Absent: diastolic murmur, gallop, rubs, systolic murmur - GI/Abdominal GI/Abdominal exam: Present: normal bowel sounds, soft, no peritoneal signs. Absent: distended, tenderness
--- NOTE | 2017-03-28 15:48 | Physician Discharge Referral ---
Home Health/Hosp Referral Info Transfer to: Home Health Attending Provider: Torrie Jaramillo Provider in Charge Post Discharge: PCP - Diagnosis (1) C. difficile colitis Priority: Primary Status: Acute (2) Lymphedema of upper extremity Priority: Secondary Status: Chronic (3) Carcinoma of breast metastatic to bone Priority: Secondary Status: Chronic (4) UTI (urinary tract infection) Priority: Primary Status: Ruled-out (5) Hypokalemia Priority: Primary Status: Resolved (6) Leucopenia Priority: Secondary Status: Acute - Respiratory Orders Smoking Cessation: Smoking cessation has been advised. For more information, call the [place] Tobacco Quit Line at 3-772-PUQT-NOW. - Diet/Nutrition Diet/Nutrition Orders: Regular - Activity Activity Orders: Ambulate - Services Needed Following services are medically necessary services: Nursing, Home Health Aide - Transfer Medications Prescriptions: Lactobacillus [Culturelle] 1 each PO BID #60 cap.sprink Home Medications: Sertraline [Zoloft] 150 mg PO DAILY 10/10/15 [History] Fluticasone Propionate Nasal [Flonase] 1 spray NS DAILY 01/18/17 [History] LORazepam [Ativan] 0.5 mg PO TID PRN #90 tablet 02/07/17 [Rx] Calcium Carbonate/Vitamin D3 [Calcium 600-Vit D3 400 Tablet] 1 tab PO QDPC 02/21 [History] Aspirin 81 mg PO DAILY 03/24/17 [History] Atorvastatin Calcium [Lipitor] 20 mg PO DAILY 03/24/17 [History] Carvedilol [Coreg] 25 mg PO BID 03/24/17 [History] Potassium Chloride Elixir [Potassium Chloride] 20 meq PO BID #10 mls 03/24/17 [ Rx] Vancomycin HCl 125 mg PO QID #40 cap 03/24/17 [Rx] Albuterol Sulfate [Proair Hfa] 2 puff IH Q4H PRN 03/25/17 [History] Letrozole [Femara] 2.5 mg PO DAILY 03/25/17 [History] Multivitamin [One Daily Essential] 1 tab PO DAILY 03/25/17 [History] Pantoprazole Sodium [Protonix] 40 mg PO DAILY 03/25/17 [History] Ranitidine HCl [Zantac] 150 mg PO BID 03/25/17 [History] Ribociclib Succinate [Kisqali] 200 mg PO DAILY 03/25/17 [History] Trazodone HCl 100 mg PO HS 03/25/17 [History] Lactobacillus [Culturelle] 1 each PO BID #60 cap.sprink 03/28/17 [Rx] Allergies/Adverse Reactions: Allergies iodine Allergy (Unknown, Verified 02/16/17 20:05) Difficulty Breathing Iodinated Contrast- Oral and IV Dye [Iodinated Contrast Media - IV Dye] Allergy (Verified 02/16/17 20:05) Difficulty Breathing Opioids - Morphine Analogues Adverse Reaction (Unknown, Verified 02/16/17 20:05) Itching nausea watermelon Allergy (Unknown, Uncoded 02/16/17 20:05) Itching Certification: Further, I certify that my clinical findings support that this patient is homebound (i.e. absences from home require considerable and taxing effort and are for medical reasons or evangelical services or infrequently or short duration when for other reasons) because: Homebound Reason: Patient requires assistance of a person or device to safely leave home Attestation: My signature below is to certify that this patient is under my care and that I, or nurse practitioner, or a physician's surgical physician assistant working with me, has a face-to -face encounter with this patient.
== END 2017-03-28 16:47 | disposition home health service (06) | DRG 372 ==
LOC: 3ANU 21:52 → EMEROO 21:52 → 3ANU 03-25 02:51 → SUATTDRO 03-25 05:00
PROVIDERS: ADMIT Internal Medicine; ATTEND Internal Medicine